=== PATIENT | female | born 1940 | race Two or more races ===

== ENCOUNTER 2021-05-30 10:39 | Inpatient (IN) | payer MEDICAID, OTHER ==
[~2021-05-30] VITALS: Ht 165.1 cm; Wt 80.0 kg
[2021-05-30] MEDS ORDERED: ACETAMINOPHEN 500 MG TAB PO ONE (12:45)
[2021-05-30 13:31] LABS: Albumin 3.2 g/dL (3.4-5.0); Calcium 8.9 mg/dL (8.5-10.1); Potassium 4.1 mmol/L (3.5-5.1)
[2021-05-30 13:37] LABS: BUN/Creatinine Ratio 22.8; Basophils # (auto) 0 10 ^3/uL (0-0.2); Bilirubin, Total 0.4 mg/dL (0.2-1.0); Eosinophils # (auto) 0 10 ^3/uL (0-0.8); Neutrophils % (auto) 80.8 % (37.0-80.0); Nucleated Red Blood Cells % 0.1 %; Total Protein 7.4 g/dL (6.4-8.2)
[2021-05-30 13:39] LABS: Hematocrit 40.3 % (36.0-46.0); Hemoglobin 13.1 g/dL (12.2-16.2); Lymphocytes # (auto) 1.3 10 ^3/uL (0.4-5.4); Lymphocytes % (auto) 8.7 % (10.0-50.0); Mean Corpuscular Hemoglobin 25.6 pg (28.0-32.0); Mean Corpuscular Hgb Conc. 32.5 g/dL (32.0-36.0); Mean Corpuscular Volume 78.9 fL (80.0-100.0); Monocytes # (auto) 1.6 10 ^3/uL (0-1.3); Monocytes % (auto) 10.5 % (0.0-12.0); Neutrophils # (auto) 12.1 10 ^3/uL (1.6-8.6); Red Blood Cells 5.11 10^6/uL (4.0-5.20); Red Cell Distribution Width 15.1 % (11.8-14.3)
[2021-05-30] MEDS ORDERED: SODIUM CHLORIDE 0.9% 500 ML IV ONE (14:45)
[2021-05-30] MEDS ORDERED: cefTRIAXone 1GM/50ML D5W 50 ML IV ONE (14:45)
[2021-05-30] MEDS ORDERED: AZITHROMYCIN 250 MG TAB PO ONE (14:45)
[2021-05-30 15:26] LABS: Urine Bacteria NONE SEEN /hpf (None Seen); Urine Blood Negative /uL (Negative); Urine Mucus FEW (None Seen); Urine WBC <1 /hpf (0 - 5)
[2021-05-30] MEDS ORDERED: ACETAMINOPHEN 500 MG TAB PO PRN (16:00)
[2021-05-30] MEDS ORDERED: MORPHINE SULFATE INJECTION 2 MG/ML SYRG IV PRN (16:00)
[2021-05-30] MEDS ORDERED: REMDESIVIR PER PHARMACY 0 ML IV SCH (16:00)
[2021-05-30] MEDS ORDERED: NITROGLYCERIN 0.4 MG SL TAB SL PRN (16:00)
[2021-05-30] MEDS ORDERED: REMDESIVIR 200 MG in NS 210ml LOADING DOSE ADULT IV ONE (18:00)
[2021-05-30] MEDS: BUDESONIDE (INHALATION) 180 MCG IH IN SCH (18:27)
[2021-05-30] MEDS: ALBUTEROL SULF HFA 90MCG INH 200DOSE IN PRN (21:05)
[2021-05-30] MEDS: DOXYCYCLINE 100MG/250ML 250 ML IV SCH (22:00)
[2021-05-31] MEDS: BUDESONIDE (INHALATION) 180 MCG IH IN SCH ×2 (05:53→20:16)
[2021-05-31] MEDS: ALBUTEROL SULF HFA 90MCG INH 200DOSE IN PRN ×2 (05:53→20:16)
[2021-05-31 07:19] LABS: Calcium 8.8 mg/dL (8.5-10.1); Potassium 3.9 mmol/L (3.5-5.1)
[2021-05-31 07:22] LABS: Albumin 2.8 g/dL (3.4-5.0); BUN/Creatinine Ratio 20.8
[2021-05-31 07:28] LABS: Bilirubin, Total 0.3 mg/dL (0.2-1.0); Total Protein 6.4 g/dL (6.4-8.2)
[2021-05-31] MEDS: DOXYCYCLINE 100MG/250ML 250 ML IV SCH ×2 (10:19→22:32)
[2021-05-31] MEDS: DexAMETHasone SOD PHOS 10MG/1ML VIAL INJ IV SCH (10:19)
[2021-05-31] MEDS: CHOLECALCIFEROL (VITD3) 2,000 UNIT CAP/TAB PO SCH (10:20)
[2021-05-31] MEDS: ZINC SULFATE 220mg CAP or TAB PO SCH (10:20)
[2021-05-31] MEDS: ASCORBIC ACID 1,000 MG TAB PO SCH (10:20)
[2021-05-31] MEDS: IVERMECTIN 3 MG TAB PO SCH (10:20)
[2021-05-31] MEDS: ENOXAPARIN SOD 40 MG/0.4 ML SYRINGE SC SCH (10:20)
[2021-05-31] MEDS ORDERED: LOSA-39 PO (12:23)
[2021-05-31] MEDS ORDERED: ATOR10TA52 PO (12:23)
[2021-05-31] MEDS ORDERED: METF-370 PO (12:23)
[2021-05-31] MEDS ORDERED: DEXTROSE (50%) 50ML SYRG IV PRN (12:30)
[2021-05-31] MEDS ORDERED: IOHEXOL 350 MG/ML 100ML IJ ONE ×2 (13:46→15:12)
[2021-05-31 16:00] VITALS: BP 134/56
[2021-05-31] MEDS: metFORMIN HYDROCHLORIDE 500 MG TAB PO SCH (16:59)
[2021-05-31] MEDS: ACCU-CHEK COMFORT CURVE STRIP VI SCH ×2 (16:59→22:00)
[2021-05-31] MEDS: REMDESIVIR 100mg 100 MG in SODIUM CHL 0.9% 230 ML IV SCH (17:00)
[2021-05-31] MEDS: InsuLIN REG 1unit/0.01ml Soln (100units/ml) SC SCH ×2 (17:09→22:41)
[2021-05-31 18:14] VITALS: BP 140/71
[2021-05-31 21:46] VITALS: BP 112/47
[2021-05-31] MEDS: ATORVASTATIN 20 MG TAB PO SCH (22:32)
[2021-06-01 04:34] VITALS: BP 115/67
[2021-06-01] MEDS: ACCU-CHEK COMFORT CURVE STRIP VI SCH ×4 (06:31→22:02)
[2021-06-01] MEDS: InsuLIN REG 1unit/0.01ml Soln (100units/ml) SC SCH ×4 (06:31→22:15)
[2021-06-01] MEDS: metFORMIN HYDROCHLORIDE 500 MG TAB PO SCH ×2 (08:45→18:41)
[2021-06-01 08:54] LABS: Potassium 4.3 mmol/L (3.5-5.1)
[2021-06-01 09:00] VITALS: BP 120/46
[2021-06-01 09:28] LABS: Albumin 2.5 g/dL (3.4-5.0); BUN/Creatinine Ratio 43.2; Bilirubin, Total 0.3 mg/dL (0.2-1.0); Calcium 9.1 mg/dL (8.5-10.1); Total Protein 6.2 g/dL (6.4-8.2)
[2021-06-01] MEDS: DexAMETHasone SOD PHOS 10MG/1ML VIAL INJ IV SCH (09:33)
[2021-06-01] MEDS: CHOLECALCIFEROL (VITD3) 2,000 UNIT CAP/TAB PO SCH (09:34)
[2021-06-01] MEDS: DOXYCYCLINE 100MG/250ML 250 ML IV SCH ×2 (09:34→22:02)
[2021-06-01] MEDS: ASCORBIC ACID 1,000 MG TAB PO SCH (09:34)
[2021-06-01] MEDS: IVERMECTIN 3 MG TAB PO SCH (09:34)
[2021-06-01] MEDS: ENOXAPARIN SOD 40 MG/0.4 ML SYRINGE SC SCH ×2 (09:34→22:02)
[2021-06-01] MEDS: ZINC SULFATE 220mg CAP or TAB PO SCH (09:34)
[2021-06-01] MEDS: LOSARTAN POTASSIUM 50 MG TAB PO SCH (09:35)
[2021-06-01] MEDS: BUDESONIDE (INHALATION) 180 MCG IH IN SCH ×2 (09:44→20:25)
[2021-06-01] MEDS: ALBUTEROL SULF HFA 90MCG INH 200DOSE IN PRN ×2 (09:44→20:25)
[2021-06-01 13:00] VITALS: BP 142/64
[2021-06-01] MEDS: REMDESIVIR 100mg 100 MG in SODIUM CHL 0.9% 230 ML IV SCH (15:15)
[2021-06-01 17:00] VITALS: BP 156/77
[2021-06-01 21:48] VITALS: BP 158/77
[2021-06-01] MEDS: ATORVASTATIN 20 MG TAB PO SCH (22:02)
[2021-06-02 04:34] VITALS: BP 122/70
[2021-06-02 06:10] LABS: Albumin 2.4 g/dL (3.4-5.0); Calcium 8.4 mg/dL (8.5-10.1)
[2021-06-02 06:13] LABS: Bilirubin, Total 0.3 mg/dL (0.2-1.0); Total Protein 5.2 g/dL (6.4-8.2)
[2021-06-02] MEDS: ACCU-CHEK COMFORT CURVE STRIP VI SCH ×4 (06:16→21:20)
[2021-06-02] MEDS: InsuLIN REG 1unit/0.01ml Soln (100units/ml) SC SCH ×4 (06:17→21:28)
[2021-06-02] MEDS: ALBUTEROL SULF HFA 90MCG INH 200DOSE IN PRN ×2 (07:00→20:11)
[2021-06-02] MEDS: BUDESONIDE (INHALATION) 180 MCG IH IN SCH ×2 (07:00→20:12)
[2021-06-02] MEDS: DexAMETHasone SOD PHOS 10MG/1ML VIAL INJ IV SCH (08:52)
[2021-06-02] MEDS: metFORMIN HYDROCHLORIDE 500 MG TAB PO SCH ×2 (08:52→19:14)
[2021-06-02] MEDS: DOXYCYCLINE 100MG/250ML 250 ML IV SCH ×2 (08:52→21:28)
[2021-06-02] MEDS: ZINC SULFATE 220mg CAP or TAB PO SCH (08:53)
[2021-06-02] MEDS: LOSARTAN POTASSIUM 50 MG TAB PO SCH (08:54)
[2021-06-02] MEDS: IVERMECTIN 3 MG TAB PO SCH (08:54)
[2021-06-02] MEDS: ASCORBIC ACID 1,000 MG TAB PO SCH (08:54)
[2021-06-02] MEDS: CHOLECALCIFEROL (VITD3) 2,000 UNIT CAP/TAB PO SCH (08:55)
[2021-06-02] MEDS: ENOXAPARIN SOD 40 MG/0.4 ML SYRINGE SC SCH ×2 (08:55→21:28)
[2021-06-02 09:00] VITALS: BP 120/58
[2021-06-02 13:00] VITALS: BP 143/74
[2021-06-02] MEDS: REMDESIVIR 100mg 100 MG in SODIUM CHL 0.9% 230 ML IV SCH (16:21)
[2021-06-02 16:51] VITALS: BP 140/83
[2021-06-02] MEDS: ATORVASTATIN 20 MG TAB PO SCH (21:28)
[2021-06-02 22:00] VITALS: BP 137/69
[2021-06-03 05:00] VITALS: BP 145/74
[2021-06-03 05:45] LABS: Basophils # (auto) 0 10 ^3/uL (0-0.2); Basophils % (auto) 0.1 % (0.0-2.0); Eosinophils # (auto) 0 10 ^3/uL (0-0.8); Monocytes # (auto) 0.4 10 ^3/uL (0-1.3)
[2021-06-03 06:01] LABS: Albumin 2.7 g/dL (3.4-5.0); Calcium 8.7 mg/dL (8.5-10.1); Potassium 3.8 mmol/L (3.5-5.1)
[2021-06-03 06:06] LABS: BUN/Creatinine Ratio 41.7; Bilirubin, Total 0.5 mg/dL (0.2-1.0)
[2021-06-03] MEDS: ACCU-CHEK COMFORT CURVE STRIP VI SCH ×4 (06:13→22:29)
[2021-06-03] MEDS: InsuLIN REG 1unit/0.01ml Soln (100units/ml) SC SCH ×4 (06:23→22:55)
[2021-06-03 06:30] LABS: Hematocrit 39.8 % (36.0-46.0); Hemoglobin 12.6 g/dL (12.2-16.2); Lymphocytes # (auto) 0.9 10 ^3/uL (0.4-5.4); Mean Corpuscular Hemoglobin 25.2 pg (28.0-32.0); Mean Corpuscular Hgb Conc. 31.6 g/dL (32.0-36.0); Mean Corpuscular Volume 79.9 fL (80.0-100.0); Monocytes % (auto) 7.5 % (0.0-12.0); Neutrophils % (auto) 75.4 % (37.0-80.0); Nucleated Red Blood Cells % 0.1 %; Red Blood Cells 4.98 10^6/uL (4.0-5.20); Red Cell Distribution Width 14.8 % (11.8-14.3); White Blood Cell 5.3 10^3/uL (4.4-10.8)
[2021-06-03] MEDS: BUDESONIDE (INHALATION) 180 MCG IH IN SCH ×2 (08:11→17:42)
[2021-06-03] MEDS: ALBUTEROL SULF HFA 90MCG INH 200DOSE IN PRN ×2 (08:11→17:43)
[2021-06-03 08:32] VITALS: BP 141/76
[2021-06-03] MEDS: metFORMIN HYDROCHLORIDE 500 MG TAB PO SCH ×2 (10:23→17:41)
[2021-06-03] MEDS: DOXYCYCLINE 100MG/250ML 250 ML IV SCH ×2 (10:23→22:28)
[2021-06-03] MEDS: ZINC SULFATE 220mg CAP or TAB PO SCH (10:23)
[2021-06-03] MEDS: LOSARTAN POTASSIUM 50 MG TAB PO SCH (10:23)
[2021-06-03] MEDS: DexAMETHasone SOD PHOS 10MG/1ML VIAL INJ IV SCH (10:23)
[2021-06-03] MEDS: ASCORBIC ACID 1,000 MG TAB PO SCH (10:25)
[2021-06-03] MEDS: IVERMECTIN 3 MG TAB PO SCH (10:25)
[2021-06-03] MEDS: CHOLECALCIFEROL (VITD3) 2,000 UNIT CAP/TAB PO SCH (10:26)
[2021-06-03] MEDS: ENOXAPARIN SOD 40 MG/0.4 ML SYRINGE SC SCH ×2 (10:26→22:29)
[2021-06-03 13:02] VITALS: BP 128/51
[2021-06-03] MEDS: REMDESIVIR 100mg 100 MG in SODIUM CHL 0.9% 230 ML IV SCH (15:31)
[2021-06-03 16:30] VITALS: BP 144/70
[2021-06-03 22:00] VITALS: BP 145/83
[2021-06-03] MEDS: ATORVASTATIN 20 MG TAB PO SCH (22:28)
[2021-06-04 05:30] VITALS: BP 148/74
[2021-06-04] MEDS: BUDESONIDE (INHALATION) 180 MCG IH IN SCH ×2 (06:05→20:13)
[2021-06-04] MEDS: ALBUTEROL SULF HFA 90MCG INH 200DOSE IN PRN ×2 (06:05→20:13)
[2021-06-04] MEDS: InsuLIN REG 1unit/0.01ml Soln (100units/ml) SC SCH ×4 (06:51→22:00)
[2021-06-04] MEDS: ACCU-CHEK COMFORT CURVE STRIP VI SCH ×4 (06:51→22:23)
[2021-06-04 09:00] VITALS: BP 161/78
[2021-06-04] MEDS: metFORMIN HYDROCHLORIDE 500 MG TAB PO SCH ×2 (09:48→18:02)
[2021-06-04] MEDS: DOXYCYCLINE 100MG/250ML 250 ML IV SCH (09:48)
[2021-06-04] MEDS: DexAMETHasone SOD PHOS 10MG/1ML VIAL INJ IV SCH (09:48)
[2021-06-04] MEDS: ZINC SULFATE 220mg CAP or TAB PO SCH (09:49)
[2021-06-04] MEDS: LOSARTAN POTASSIUM 50 MG TAB PO SCH (09:49)
[2021-06-04] MEDS: IVERMECTIN 3 MG TAB PO SCH (09:49)
[2021-06-04] MEDS: ASCORBIC ACID 1,000 MG TAB PO SCH (09:49)
[2021-06-04] MEDS: CHOLECALCIFEROL (VITD3) 2,000 UNIT CAP/TAB PO SCH (09:50)
[2021-06-04] MEDS: ENOXAPARIN SOD 40 MG/0.4 ML SYRINGE SC SCH ×2 (09:50→22:23)
[2021-06-04] MEDS ORDERED: ALBUAER3 IN (10:38)
[2021-06-04] MEDS ORDERED: MAGNESIUM CITRATE SOLUTION 300 ML BTL PO ONE (11:15)
[2021-06-04 13:00] VITALS: BP 150/76
[2021-06-04 17:00] VITALS: BP 155/83
[2021-06-04] MEDS: ATORVASTATIN 20 MG TAB PO SCH (22:23)
[2021-06-04 23:23] VITALS: BP 127/68
== END 2021-06-04 23:59 | disposition home health service (06) | DRG 720 ==
LOC: ER 10:39 → TELE 15:53 → EAST 05-31 15:39
PROVIDERS: ADMIT Nurse Practitioner; ATTEND Nurse Practitioner
PROC: XW033E5 Introduction of Remdesivir Anti-infective into Peripheral Vein, Percutaneous Approach, New Technology Group 5 (ICD-10-PCS; principal; 2021-05-30)
DX: A41.9 Sepsis, unspecified organism (principal); J96.01 Acute respiratory failure with hypoxia; J12.82 Pneumonia due to coronavirus disease 2019; U07.1 COVID-19; I11.9 Hypertensive heart disease without heart failure; E11.9 Type 2 diabetes mellitus without complications; E66.9 Obesity, unspecified; J98.11 Atelectasis; E78.5 Hyperlipidemia, unspecified; R00.0 Tachycardia, unspecified; R79.89 Other specified abnormal findings of blood chemistry; Z68.29 Body mass index [BMI] 29.0-29.9, adult
CPT/HCPCS: 36415; 71045; 71275; 80053; 80061; 81001; 82306; 82728; 82962; 83036; 83615; 83735; 83880; 84443; 84484; 85025; 85379; 86141; 87040; 87426; 93005; 93306; 93970; 94640; 96365; G0378; J0696; J1100; J1815; J3490

== ENCOUNTER 2021-07-13 23:46 | Emergency (ER) | payer MEDICAID ==
[~2021-07-13] VITALS: Ht 160 cm; Wt 80.3 kg
[~2021-07-13 23:46] MED LIST: ALBUAER3 IN; ATOR10TA52 PO; LOSA-39 PO; METF-370 PO
[2021-07-14 00:57] LABS: Urine Bacteria FEW /hpf (None Seen); Urine Blood Negative /uL (Negative); Urine Specific Gravity 1.002 (1.001-1.035); Urine WBC 6 /hpf (0 - 5)
[2021-07-14 01:14] LABS: Basophils # (auto) 0 10 ^3/uL (0-0.2); Basophils % (auto) 0.1 % (0.0-2.0); Eosinophils # (auto) 0 10 ^3/uL (0-0.8); Hemoglobin 12.5 g/dL (12.2-16.2); Lymphocytes # (auto) 2.3 10 ^3/uL (0.4-5.4); Lymphocytes % (auto) 38.5 % (10.0-50.0); Mean Corpuscular Hemoglobin 25.8 pg (28.0-32.0); Mean Corpuscular Volume 78.2 fL (80.0-100.0); Monocytes # (auto) 0.9 10 ^3/uL (0-1.3); Monocytes % (auto) 14.5 % (0.0-12.0); Neutrophils # (auto) 2.9 10 ^3/uL (1.6-8.6); Neutrophils % (auto) 46.9 % (37.0-80.0); Nucleated Red Blood Cells % 0.1 %; Red Blood Cells 4.85 10^6/uL (4.0-5.20); Red Cell Distribution Width 14.8 % (11.8-14.3); White Blood Cell 6.1 10^3/uL (4.4-10.8)
[2021-07-14 01:33] LABS: Albumin 3.5 g/dL (3.4-5.0); Calcium 9.1 mg/dL (8.5-10.1); Potassium 3.7 mmol/L (3.5-5.1)
[2021-07-14 01:35] LABS: BUN/Creatinine Ratio 30.8
[2021-07-14 01:40] LABS: Bilirubin, Total 0.4 mg/dL (0.2-1.0); Total Protein 6.6 g/dL (6.4-8.2)
[2021-07-14 05:19] VITALS: BP 130/59
== END 2021-07-14 06:02 | disposition home or self-care (01) ==
LOC: ER 23:48
DX: I10 Essential (primary) hypertension (principal); E11.9 Type 2 diabetes mellitus without complications; Z79.899 Other long term (current) drug therapy
CPT/HCPCS: 36415; 71045; 71046; 80053; 81001; 83735; 84484; 85025; 93005

== ENCOUNTER 2021-11-30 23:38 | Inpatient (IN) | payer MEDICAID ==
[~2021-11-30] VITALS: Ht 157.5 cm; Wt 76.0 kg
[2021-12-01] MEDS ORDERED: DexAMETHasone SOD PHOS 10MG/1ML VIAL INJ IV ONE (01:30)
[2021-12-01 04:35] LABS: Basophils # (auto) 0 10 ^3/uL (0-0.2); Basophils % (auto) 0.3 % (0.0-2.0); Eosinophils # (auto) 0 10 ^3/uL (0-0.8); Hemoglobin 13.2 g/dL (12.2-16.2); Lymphocytes # (auto) 2.1 10 ^3/uL (0.4-5.4); Nucleated Red Blood Cells % 0.1 %; White Blood Cell 6.5 10^3/uL (4.4-10.8)
[2021-12-01 04:37] LABS: Hematocrit 41.6 % (36.0-46.0); Lymphocytes % (auto) 31.9 % (10.0-50.0); Mean Corpuscular Hemoglobin 24.7 pg (28.0-32.0); Mean Corpuscular Hgb Conc. 31.7 g/dL (32.0-36.0); Monocytes # (auto) 0.7 10 ^3/uL (0-1.3); Neutrophils # (auto) 3.7 10 ^3/uL (1.6-8.6); Neutrophils % (auto) 56.8 % (37.0-80.0); Red Blood Cells 5.34 10^6/uL (4.0-5.20); Red Cell Distribution Width 14.1 % (11.8-14.3)
[2021-12-01 05:01] LABS: Albumin 3.5 g/dL (3.4-5.0); BUN/Creatinine Ratio 26.5; Calcium 8.9 mg/dL (8.5-10.1); Magnesium 2.1 mg/dL (1.6-2.6)
[2021-12-01 05:04] LABS: Bilirubin, Total 0.3 mg/dL (0.2-1.0); Total Protein 6.6 g/dL (6.4-8.2)
[2021-12-01] MEDS ORDERED: ACETAMINOPHEN 500 MG TAB PO PRN ×2 (05:15→06:00)
[2021-12-01] MEDS ORDERED: NITROGLYCERIN 0.4 MG SL TAB SL PRN ×2 (05:15→06:00)
[2021-12-01] MEDS ORDERED: ONDANSETRON HCL 4 MG/2 ML VIAL IV PRN ×2 (05:15→06:00)
[2021-12-01] MEDS ORDERED: MORPHINE SULFATE INJ 2 MG/ml SYRG IV PRN ×2 (05:15→06:00)
[2021-12-01] MEDS ORDERED: DEXTROSE (50%) 50ML SYRG IV PRN ×2 (05:15→06:00)
[2021-12-01 05:24] LABS: Urine Bacteria FEW /hpf (None Seen); Urine Blood Negative /uL (Negative); Urine Specific Gravity 1.005 (1.001-1.035); Urine WBC 2 /hpf (0 - 5)
[2021-12-01] MEDS ORDERED: AZITHROMYCIN 500MG/ 250ML 250 ML IV SCH (06:00)
[2021-12-01] MEDS: ACCU-CHEK COMFORT CURVE STRIP VI SCH ×4 (06:52→22:12)
[2021-12-01] MEDS: InsuLIN REG 1unit/0.01ml Soln (100units/ml) SC SCH ×4 (06:53→22:00)
[2021-12-01] MEDS ORDERED: InsuLIN REG 1unit/0.01ml Soln (100units/ml) SC SCH ×2 (07:00→22:00)
[2021-12-01] MEDS ORDERED: ACCU-CHEK COMFORT CURVE STRIP VI SCH (07:00)
[2021-12-01 09:00] VITALS: BP 148/70
[2021-12-01] MEDS ORDERED: REMDESIVIR PER PHARMACY 0 ML IV SCH (09:45)
[2021-12-01] MEDS ORDERED: LOSARTAN POTASSIUM 50 MG TAB PO SCH (10:00)
[2021-12-01] MEDS: BUDESONIDE (INHALATION) 180 MCG IH IN SCH ×2 (11:00→22:01)
[2021-12-01] MEDS: ALBUTEROL SULF HFA 90MCG INH 200DOSE IN PRN ×2 (11:51→22:01)
[2021-12-01] MEDS: ZINC SULFATE 220mg CAP or TAB PO SCH (12:54)
[2021-12-01] MEDS: ASCORBIC ACID 1,000 MG TAB PO SCH (12:55)
[2021-12-01] MEDS: CHOLECALCIFEROL (VITD3) 2,000 UNIT CAP/TAB PO SCH (12:55)
[2021-12-01] MEDS: AZITHROMYCIN 500MG/ 250ML 250 ML IV SCH (12:55)
[2021-12-01] MEDS ORDERED: REMDESIVIR 200 MG in NS 210ml LOADING DOSE ADULT IV ONE (15:00)
[2021-12-01] MEDS ORDERED: LACTULOSE 20Gm/30ML SOLN PO ONE (16:30)
[2021-12-01 16:42] VITALS: BP 152/71
[2021-12-01] MEDS ORDERED: DOCUSATE SOD 100 MG CAP PO SCH (16:46)
[2021-12-01] MEDS ORDERED: guaiFENesin-DM 100/10mg/5ml SYR PO PRN (18:15)
[2021-12-01 20:00] VITALS: BP 159/83
[2021-12-01 22:00] VITALS: BP 159/83
[2021-12-01] MEDS: ATORVASTATIN 20 MG TAB PO SCH (22:12)
[2021-12-02 05:00] VITALS: BP 130/62
[2021-12-02] MEDS: ACCU-CHEK COMFORT CURVE STRIP VI SCH ×4 (06:21→22:00)
[2021-12-02] MEDS: InsuLIN REG 1unit/0.01ml Soln (100units/ml) SC SCH ×4 (06:22→22:00)
[2021-12-02 06:32] LABS: Basophils # (auto) 0 10 ^3/uL (0-0.2); Basophils % (auto) 0.3 % (0.0-2.0); Eosinophils # (auto) 0 10 ^3/uL (0-0.8); Lymphocytes # (auto) 2.6 10 ^3/uL (0.4-5.4); Monocytes % (auto) 12.2 % (0.0-12.0); Neutrophils # (auto) 4.3 10 ^3/uL (1.6-8.6); White Blood Cell 7.9 10^3/uL (4.4-10.8)
[2021-12-02 06:36] LABS: Hematocrit 41.9 % (36.0-46.0); Hemoglobin 13.2 g/dL (12.2-16.2); Lymphocytes % (auto) 33.3 % (10.0-50.0); Mean Corpuscular Hemoglobin 24.7 pg (28.0-32.0); Mean Corpuscular Hgb Conc. 31.6 g/dL (32.0-36.0); Mean Corpuscular Volume 78.4 fL (80.0-100.0); Neutrophils % (auto) 54.2 % (37.0-80.0); Red Blood Cells 5.34 10^6/uL (4.0-5.20); Red Cell Distribution Width 14.2 % (11.8-14.3)
[2021-12-02 06:55] LABS: Albumin 3.2 g/dL (3.4-5.0); Calcium 8.8 mg/dL (8.5-10.1); Potassium 4.1 mmol/L (3.5-5.1)
[2021-12-02 07:01] LABS: Bilirubin, Total 0.3 mg/dL (0.2-1.0); Total Protein 5.9 g/dL (6.4-8.2)
[2021-12-02 09:00] VITALS: BP 144/69
[2021-12-02] MEDS: DexAMETHasone SOD PHOS 4 MG/1ML SDV INJ IV SCH (09:42)
[2021-12-02] MEDS: ZINC SULFATE 220mg CAP or TAB PO SCH (09:42)
[2021-12-02] MEDS: DOCUSATE SOD 100 MG CAP PO SCH ×2 (09:44→22:53)
[2021-12-02] MEDS: AZITHROMYCIN 500MG/ 250ML 250 ML IV SCH (09:44)
[2021-12-02] MEDS: ASCORBIC ACID 1,000 MG TAB PO SCH (09:44)
[2021-12-02] MEDS: CHOLECALCIFEROL (VITD3) 2,000 UNIT CAP/TAB PO SCH (09:44)
[2021-12-02] MEDS ORDERED: DexAMETHasone SOD PHOS 4 MG/1ML SDV INJ IV SCH (10:00)
[2021-12-02] MEDS: BUDESONIDE (INHALATION) 180 MCG IH IN SCH ×2 (10:23→18:36)
[2021-12-02] MEDS: ALBUTEROL SULF HFA 90MCG INH 200DOSE IN PRN ×2 (10:57→18:36)
[2021-12-02 13:00] VITALS: BP 115/57
[2021-12-02] MEDS: REMDESIVIR 100mg 100 MG in SODIUM CHL 0.9% 230 ML IV SCH (15:53)
[2021-12-02 17:00] VITALS: BP 142/60
[2021-12-02 20:00] VITALS: BP 146/83
[2021-12-02 22:00] VITALS: BP 146/83
[2021-12-02] MEDS: ATORVASTATIN 20 MG TAB PO SCH (22:53)
[2021-12-03 05:00] VITALS: BP 128/78
[2021-12-03 06:22] LABS: Basophils # (auto) 0 10 ^3/uL (0-0.2); Eosinophils # (auto) 0 10 ^3/uL (0-0.8); Monocytes # (auto) 0.8 10 ^3/uL (0-1.3); Red Blood Cells 4.95 10^6/uL (4.0-5.20)
[2021-12-03 06:24] LABS: Basophils % (auto) 0.1 % (0.0-2.0); Hematocrit 38.4 % (36.0-46.0); Hemoglobin 12.4 g/dL (12.2-16.2); Lymphocytes # (auto) 2.2 10 ^3/uL (0.4-5.4); Lymphocytes % (auto) 27.5 % (10.0-50.0); Mean Corpuscular Hemoglobin 25.1 pg (28.0-32.0); Mean Corpuscular Hgb Conc. 32.4 g/dL (32.0-36.0); Mean Corpuscular Volume 77.5 fL (80.0-100.0); Monocytes % (auto) 9.5 % (0.0-12.0); Neutrophils % (auto) 62.9 % (37.0-80.0); Nucleated Red Blood Cells % 0.1 %; Red Cell Distribution Width 14.1 % (11.8-14.3); White Blood Cell 7.9 10^3/uL (4.4-10.8)
[2021-12-03 07:00] LABS: Albumin 3.1 g/dL (3.4-5.0); BUN/Creatinine Ratio 51.5; Bilirubin, Total 0.4 mg/dL (0.2-1.0); Calcium 8.8 mg/dL (8.5-10.1); Total Protein 5.7 g/dL (6.4-8.2)
[2021-12-03] MEDS: InsuLIN REG 1unit/0.01ml Soln (100units/ml) SC SCH ×4 (07:00→22:17)
[2021-12-03] MEDS: ACCU-CHEK COMFORT CURVE STRIP VI SCH ×4 (07:04→22:05)
[2021-12-03] MEDS: LACTULOSE 20Gm/30ML SOLN PO PRN (07:05)
[2021-12-03 08:13] VITALS: BP 147/66
[2021-12-03] MEDS: AZITHROMYCIN 500MG/ 250ML 250 ML IV SCH (09:33)
[2021-12-03] MEDS: DexAMETHasone SOD PHOS 4 MG/1ML SDV INJ IV SCH (09:33)
[2021-12-03] MEDS: ZINC SULFATE 220mg CAP or TAB PO SCH (09:34)
[2021-12-03] MEDS: ASCORBIC ACID 1,000 MG TAB PO SCH (09:34)
[2021-12-03] MEDS: CHOLECALCIFEROL (VITD3) 2,000 UNIT CAP/TAB PO SCH (09:34)
[2021-12-03] MEDS: DOCUSATE SOD 100 MG CAP PO SCH ×3 (09:37→22:05)
[2021-12-03] MEDS: BUDESONIDE (INHALATION) 180 MCG IH IN SCH ×2 (09:49→18:53)
[2021-12-03 12:00] VITALS: BP 134/67
[2021-12-03] MEDS: REMDESIVIR 100mg 100 MG in SODIUM CHL 0.9% 230 ML IV SCH (15:53)
[2021-12-03 17:00] VITALS: BP 136/64
[2021-12-03] MEDS: ALBUTEROL SULF HFA 90MCG INH 200DOSE IN PRN (18:54)
[2021-12-03 20:00] VITALS: BP 143/65
[2021-12-03 22:00] VITALS: BP 143/65
[2021-12-03] MEDS: ATORVASTATIN 20 MG TAB PO SCH (22:05)
[2021-12-04 05:00] VITALS: BP 129/54
[2021-12-04 06:34] LABS: Basophils # (auto) 0 10 ^3/uL (0-0.2); Basophils % (auto) 0.1 % (0.0-2.0); Eosinophils # (auto) 0 10 ^3/uL (0-0.8); Nucleated Red Blood Cells % 0.1 %
[2021-12-04 06:35] LABS: Hemoglobin 13.1 g/dL (12.2-16.2); Lymphocytes # (auto) 2.6 10 ^3/uL (0.4-5.4); Lymphocytes % (auto) 36.9 % (10.0-50.0); Mean Corpuscular Hemoglobin 25.4 pg (28.0-32.0); Mean Corpuscular Hgb Conc. 32.7 g/dL (32.0-36.0); Mean Corpuscular Volume 77.6 fL (80.0-100.0); Monocytes % (auto) 13.8 % (0.0-12.0); Neutrophils # (auto) 3.5 10 ^3/uL (1.6-8.6); Neutrophils % (auto) 49.2 % (37.0-80.0); Red Blood Cells 5.15 10^6/uL (4.0-5.20); Red Cell Distribution Width 13.9 % (11.8-14.3); White Blood Cell 7.2 10^3/uL (4.4-10.8)
[2021-12-04 06:43] LABS: Albumin 3.1 g/dL (3.4-5.0); Calcium 8.8 mg/dL (8.5-10.1); Potassium 4.1 mmol/L (3.5-5.1)
[2021-12-04 06:46] LABS: BUN/Creatinine Ratio 47.2; Bilirubin, Total 0.4 mg/dL (0.2-1.0)
[2021-12-04] MEDS: ACCU-CHEK COMFORT CURVE STRIP VI SCH ×4 (06:59→22:00)
[2021-12-04] MEDS: InsuLIN REG 1unit/0.01ml Soln (100units/ml) SC SCH ×4 (06:59→22:31)
[2021-12-04 07:54] VITALS: BP 129/54
[2021-12-04 08:33] VITALS: BP 148/69
[2021-12-04] MEDS: BUDESONIDE (INHALATION) 180 MCG IH IN SCH ×2 (09:17→21:59)
[2021-12-04] MEDS: LACTULOSE 20Gm/30ML SOLN PO PRN (09:37)
[2021-12-04] MEDS: ASCORBIC ACID 1,000 MG TAB PO SCH (09:37)
[2021-12-04] MEDS: CHOLECALCIFEROL (VITD3) 2,000 UNIT CAP/TAB PO SCH (09:38)
[2021-12-04] MEDS: DOCUSATE SOD 100 MG CAP PO SCH ×3 (09:38→21:42)
[2021-12-04] MEDS: DexAMETHasone SOD PHOS 4 MG/1ML SDV INJ IV SCH (09:38)
[2021-12-04] MEDS: AZITHROMYCIN 500MG/ 250ML 250 ML IV SCH (09:38)
[2021-12-04] MEDS: ZINC SULFATE 220mg CAP or TAB PO SCH (09:38)
[2021-12-04 12:37] VITALS: BP 121/66
[2021-12-04] MEDS: REMDESIVIR 100mg 100 MG in SODIUM CHL 0.9% 230 ML IV SCH (15:05)
[2021-12-04 16:49] VITALS: BP 126/61
[2021-12-04 21:31] VITALS: BP 107/60
[2021-12-04] MEDS: ATORVASTATIN 20 MG TAB PO SCH (21:42)
[2021-12-04] MEDS: ALBUTEROL SULF HFA 90MCG INH 200DOSE IN PRN (21:58)
[2021-12-05 04:59] VITALS: BP 128/55
[2021-12-05] MEDS: ACCU-CHEK COMFORT CURVE STRIP VI SCH ×2 (05:45→11:30)
[2021-12-05] MEDS: InsuLIN REG 1unit/0.01ml Soln (100units/ml) SC SCH ×2 (05:45→12:15)
[2021-12-05 06:18] LABS: Basophils # (auto) 0 10 ^3/uL (0-0.2); Eosinophils # (auto) 0 10 ^3/uL (0-0.8); Hemoglobin 14.2 g/dL (12.2-16.2); Lymphocytes # (auto) 2.7 10 ^3/uL (0.4-5.4)
[2021-12-05 06:19] LABS: Hematocrit 43.5 % (36.0-46.0); Lymphocytes % (auto) 34.4 % (10.0-50.0); Mean Corpuscular Hemoglobin 25.5 pg (28.0-32.0); Mean Corpuscular Hgb Conc. 32.7 g/dL (32.0-36.0); Mean Corpuscular Volume 78.1 fL (80.0-100.0); Monocytes % (auto) 12.7 % (0.0-12.0); Neutrophils # (auto) 4.1 10 ^3/uL (1.6-8.6); Neutrophils % (auto) 52.9 % (37.0-80.0); Red Blood Cells 5.57 10^6/uL (4.0-5.20); Red Cell Distribution Width 14.3 % (11.8-14.3); White Blood Cell 7.8 10^3/uL (4.4-10.8)
[2021-12-05 06:24] LABS: Calcium 9.2 mg/dL (8.5-10.1); Potassium 4.2 mmol/L (3.5-5.1)
[2021-12-05 06:29] LABS: Albumin 3.3 g/dL (3.4-5.0); BUN/Creatinine Ratio 51.7; Bilirubin, Total 0.5 mg/dL (0.2-1.0); Total Protein 6.4 g/dL (6.4-8.2)
[2021-12-05 09:31] VITALS: BP 115/53
[2021-12-05] MEDS ORDERED: PRED20TA2 PO (09:34)
[2021-12-05] MEDS ORDERED: AZIT500T66 PO (09:34)
[2021-12-05] MEDS: BUDESONIDE (INHALATION) 180 MCG IH IN SCH (10:00)
[2021-12-05] MEDS: DOCUSATE SOD 100 MG CAP PO SCH ×2 (10:00→10:16)
[2021-12-05] MEDS: AZITHROMYCIN 500MG/ 250ML 250 ML IV SCH (10:15)
[2021-12-05] MEDS: ZINC SULFATE 220mg CAP or TAB PO SCH (10:15)
[2021-12-05] MEDS: DexAMETHasone SOD PHOS 4 MG/1ML SDV INJ IV SCH (10:15)
[2021-12-05] MEDS: CHOLECALCIFEROL (VITD3) 2,000 UNIT CAP/TAB PO SCH (10:16)
[2021-12-05] MEDS: ASCORBIC ACID 1,000 MG TAB PO SCH (10:16)
[2021-12-05] MEDS ORDERED: METF-370 PO (10:54)
[2021-12-05 13:10] VITALS: BP 120/57
== END 2021-12-05 13:00 | disposition home or self-care (01) | DRG 137 ==
LOC: ER 23:38 → TELE 12-01 05:26 → TELE-CENTR 12-01 14:55
PROVIDERS: ADMIT Psychiatry & Neurology Psychiatry; ATTEND Nurse Practitioner
PROC: XW033E5 Introduction of Remdesivir Anti-infective into Peripheral Vein, Percutaneous Approach, New Technology Group 5 (ICD-10-PCS; principal; 2021-12-01)
DX: U07.1 COVID-19 (principal); J96.21 Acute and chronic respiratory failure with hypoxia; J12.82 Pneumonia due to coronavirus disease 2019; E11.9 Type 2 diabetes mellitus without complications; I10 Essential (primary) hypertension; J45.909 Unspecified asthma, uncomplicated; Z90.49 Acquired absence of other specified parts of digestive tract; Z79.84 Long term (current) use of oral hypoglycemic drugs
CPT/HCPCS: 36415; 36600; 71045; 80053; 81001; 82805; 82962; 83735; 83880; 84484; 85025; 85379; 93005; 94640; 96365; 96367; G0378; J1100; J1815

== ENCOUNTER 2023-11-05 11:01 | Emergency (ER) | payer MEDICAID ==
[~2023-11-05] VITALS: Ht 152.4 cm; Wt 86.9 kg
[~2023-11-05 11:01] MED LIST changes: +AZIT500T66 PO; -LOSA-39 PO; +LOSA-535 PO; +PRED20TA2 PO
[2023-11-05 13:25] VITALS: BP 121/61; PULSE 78; RESP 18; TEMP 98.2; O2SAT 95
== END 2023-11-05 13:28 | disposition home or self-care (01) ==
LOC: ER 11:01
DX: Z13.89 Encounter for screening for other disorder (principal); I10 Essential (primary) hypertension; E11.9 Type 2 diabetes mellitus without complications; J45.909 Unspecified asthma, uncomplicated; Z98.890 Other specified postprocedural states; Z79.899 Other long term (current) drug therapy

== ENCOUNTER 2024-09-21 15:01 | Emergency (ER) | payer MEDICAID ==
[~2024-09-21] VITALS: Ht 152.4 cm; Wt 77.0 kg
--- NOTE | 2024-09-21 16:15 | ED.PDOC ---
SOB-HPI HPI Comments 83 y/o F, with PMHx of asthma, HTN, and DM presents to the ED for CC of shortness of breath. Patient states she has been experiencing shortness of breath, onset this morning (09/21/24); following running out of her oxygen. Patient reports, that she has been on continuous oxygen for x1year. Patient relays, that she was recently seen at [facility] for symptoms and was told to have fluid retention and low oxygen saturations. Patient denies active chest pain, palpitations, cough, or bilateral leg swelling. No other symptoms or modifying factors present at this time. 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 History Family History Family History: Reviewed,noncontributory to illness Social History Smoker: Non-Smoker Alcohol: Denies ETOH Use Drugs: Denies Drug Use Lives In: Home Constitutional: denies: chills, diaphoresis, fatigue, fever, malaise, sweats, weakness, others EENTM: denies: blurred vision, double vision, ear bleeding, ear discharge, ear drainage, ear pain, ear ringing, eye pain, eye redness, hearing loss, mouth pain, mouth swelling, nasal discharge, nose bleeding, nose congestion, nose pain, photophobia, tearing, throat pain, throat swelling, voice changes, others Respiratory: reports: shortness of breath; denies: cough, hemoptysis, orthopnea, SOB at rest, SOB with excertion, stridor, wheezing, others Cardiovascular: denies: chest pain, dizzy spells, diaphoresis, Dyspnea on exertion, edema, irregular heart beat, left arm pain, lightheadedness, palpitations, PND, syncope, others Gastrointestinal: denies: abdomen distended, abdominal pain, blood streaked bowels, constipated, diarrhea, dysphagia, difficulty swallowing, hematemesis, melena, nausea, poor appetite, poor fluid intake, rectal bleeding, rectal pain, vomiting, others Genitourinary: denies: abnormal vagina bleeding, burning, dyspareunia, dysuria, flank pain, frequency, hematuria, incontinence, pain, , vagina discharge, urgency, others Neurological: denies: dizziness, fainting, headache, left sided numbness, left sided weakness, numbness, paresthesia, pre-existing deficit, right sided numbnes s, right sided weakness, seizure, speech problems, tingling, tremors, weakness, others Musculoskeletal: denies: back pain, gout, joint pain, joint swelling, muscle pain, muscle stiffness, neck pain, others Integumetry: denies: bruises, change in color, change in hair/nails, dryness, laceration, lesions, lumps, rash, wounds, others Allergic/Immunocompromised: denies: Difficulty Healing, Frequent Infections, Hives, Itching, others Hematologic/Lymphatic: denies: anemia, blood clots, easy bleeding, easy bruising, swollen glands, others Endocrine: denies: excessive hunger, excessive sweating, excessive thirst, excessive urination, flushing, intolerance to cold, intolerance to heat, unexplained weight gain, unexplained weight loss, others Psychiatric: denies: anxiety, bipolar disorder, depression, hopeless, panic disorder, schizophrenia, sleepless, suicidal, others All Other Systems: Reviewed and Negative Physical Exam General Appearance: Moderate Distress HEENT: Normal ENT Inspection, Pharynx Normal, TMs Normal Neck: Full Range of Motion, Non-Tender, Normal, Normal Inspection Respiratory: Chest Non-Tender, Lungs Clear, No Accessory Muscle Use, No Respiratory Distress, Normal Breath Sounds Cardiovascular: No Edema, No JVD, No Murmur, No Gallop, Normal Peripheral Pulses, Regular Rate/Rhythm Breast Exam: Deferred Gastrointestinal: No Organomegaly, Non Tender, No Pulsatile Mass, Normal Bowel Sounds, Soft Genitalia: Deferred Pelvic: Deferred Rectal: Deferred Extremities: No calf tenderness, Normal capillary refill, No pedal edema Musculoskeletal : Apperance: Normal Neurologic: Alert, spinner cap frame II-XII nml as Tested, Motor Weakness, Normal Affect, Normal Mood, No Sensory Deficits Cerebellar Function: Normal Reflexes: Normal Skin: Dry, Normal Color, Warm Lymphatic: No Adenopathy Was a procedure done? Was a procedure done?: No Differential Dx Differential Diagnosis: Asthma, CHF, Pneumonia, Sinusitis, Pharyngitis, URI X-Ray, Labs, Meds, VS Vital Signs Date Time Temp Pulse Resp B/P (MAP) Pulse Ox O2 Delivery O2 Flow Rate FiO2 09/21/24 16:19 99.1 78 20 120/44 (69) 96 99.1 09/21/24 15:51 74 Lab Test 09/21/24 17:33 09/21/24 16:38 Range/Units Troponin I High Sensitivity Pending 13 </=34 ng/L White Blood Count 5.4 4.4-10.8 10^3/uL Red Blood Count 6.06 H 4.0-5.20 10^6/uL Hemoglobin 13.6 12.2-16.2 g/dL Hematocrit 43.8 36.0-46.0 % Mean Corpuscular Volume 72.3 L 80.0-100.0 fL Mean Corpuscular Hemoglobin 22.5 L 28.0-32.0 pg Mean Corpuscular Hemoglobin Concent 31.0 L 32.0-36.0 g/dL Red Cell Distribution Width 19.9 H 11.8-14.3 % Platelet Count 178 140-450 10^3/uL Mean Platelet Volume 8.3 6.9-10.8 fL Neutrophils (%) (Auto) 51.2 37.0-80.0 % Lymphocytes (%) (Auto) 35.6 10.0-50.0 % Monocytes (%) (Auto) 12.6 H 0.0-12.0 % Eosinophils (%) (Auto) 0.0 0.0-7.0 % Basophils (%) (Auto) 0.6 0.0-2.0 % Neutrophils # (Auto) 2.8 1.6-8.6 10 ^3/uL Lymphocytes # (Auto) 1.9 0.4-5.4 10 ^3/uL Monocytes # (Auto) 0.7 0-1.3 10 ^3/uL Eosinophils # (Auto) 0 0-0.8 10 ^3/uL Basophils # (Auto) 0 0-0.2 10 ^3/uL Nucleated Red Blood Cells 0.0 % Sodium Level 138 136-145 mmol/L Potassium Level 4.1 3.5-5.1 mmol/L Chloride Level 97 L 98-107 mmol/L Carbon Dioxide Level 34 H 20-31 mmol/L Anion Gap 7 5-15 Blood Urea Nitrogen 15 9-23 mg/dL Creatinine 0.61 0.550-1.02 mg/dL Glomerular Filtration Rate Calc 89 >90 mL/min BUN/Creatinine Ratio 24.6 H 10.0-20.0 Serum Glucose 180 H 74-106 mg/dL Calcium Level 9.9 8.7-10.4 mg/dL B-Type Natriuretic Peptide 51.14 0-100 pg/mL CXR: IMPRESSION: 1. No evidence of acute disease. The patient's CBC is within normal limits The chemistry panel is within normal limits The patient's glucose is 100 and The troponin level is negative At this time, the patient is being admitted with a diagnosis of acute myocardial ischemia We did send the EKG to the field spec and is read as not a STEMI Images Reviewed?: Images reviewed and evaluated by me Time of 1ST Reevaluation: 16:30 Reevaluation 1ST: Unchanged Patient Education/Counseling: Diagnosis, Treatment, Prognosis Family Education/Counseling: No Family Present Departure 1 Departure Time of Disposition: 18:07 Impression: Primary Impression: Acute myocardial ischemia Disposition: 09 ADMITTED INPATIENT Admit to: [facility] Condition: Fair Critical Care Note Critical Care Time?: No Stability Stability form required: Yes Unstable for transfer: Telemetry monitoring (Telemetry monitoring required), ED Physician Assesment (Clinical assesment) Heart Score Heart Score: Heart Score Response (Comments) Value History Moderate Suspicious 1 EKG Repolarization Disturb 1 Age >65 2 Risk Factors >3 or Hx ASHD 2 Troponin Normal limit 0 Total 6 I personally scribed for LA MALDONADO MD ([email or web address]) on 09/21/24 at 16:15. Electronically submitted by Lexi Hagen ([email or web address]). I personally scribed for LA MALDONADO MD ([email or web address]) on 09/21/24 at 16:40. Electronically submitted by Lexi Hagen ([email or web address]). LA MALDONADO MD September 21, 2024 16:15
[2024-09-21 16:19] VITALS: BP 120/44; PULSE 78; RESP 20; TEMP 99.1; O2SAT 96
--- NOTE | 2024-09-21 16:38 | DVH ---
CHEST RADIOGRAPH Indication: sob Technique: Frontal and lateral view of the chest was obtained Comparison: CHEST TWO VIEWS ROUTINE on DOS: 07/14/21 FINDINGS: Lines and Tubes: None Lungs: Clear Pleura: Blunting of the left costophrenic sulcus suggesting small pleural effusion or pleural reactio n. This is unchanged from prior study. No pneumothorax. Cardiomediastinal contours: Unremarkable Bones: Unremarkable IMPRESSION: 1. No evidence of acute disease.
[2024-09-21 16:45] LABS: Basophils # (auto) 0 10 ^3/uL (0-0.2); Basophils % (auto) 0.6 % (0.0-2.0); Eosinophils # (auto) 0 10 ^3/uL (0-0.8); Hematocrit 43.8 % (36.0-46.0); Hemoglobin 13.6 g/dL (12.2-16.2); Lymphocytes # (auto) 1.9 10 ^3/uL (0.4-5.4); Lymphocytes % (auto) 35.6 % (10.0-50.0); Mean Corpuscular Hemoglobin 22.5 pg (28.0-32.0); Mean Corpuscular Volume 72.3 fL (80.0-100.0); Monocytes # (auto) 0.7 10 ^3/uL (0-1.3); Monocytes % (auto) 12.6 % (0.0-12.0); Neutrophils # (auto) 2.8 10 ^3/uL (1.6-8.6); Neutrophils % (auto) 51.2 % (37.0-80.0); Platelet Count (auto) 178 10^3/uL (140-450); Red Blood Cells 6.06 10^6/uL (4.0-5.20); Red Cell Distribution Width 19.9 % (11.8-14.3); White Blood Cell 5.4 10^3/uL (4.4-10.8)
[2024-09-21 16:52] LABS: Potassium 4.1 mmol/L (3.5-5.1); Sodium 138 mmol/L (136-145)
[2024-09-21 16:53] LABS: Anion Gap 7 (5-15); Carbon Dioxide 34 mmol/L (20-31); Chloride 97 mmol/L (98-107)
[2024-09-21 16:54] LABS: Calcium 9.9 mg/dL (8.7-10.4)
[2024-09-21 16:59] LABS: BUN/Creatinine Ratio 24.6 (10.0-20.0); Blood Urea Nitrogen 15 mg/dL (9-23); Glucose 180 mg/dL (74-106)
--- NOTE | 2024-09-22 09:56 | ECG ---
[facility] Test Date: 2024-09-21 Test Time: 15:51:07 Pat Name: TRINA FAY Department: ER Room: Gender: F Billing Rep: ARCADIO : 1940 Requested By: LA MALDONADO Order Number: [id number] Reading MD: Chris Quintero Measurements Intervals [place] Rate: 74 P: 7 IN: 143 QRS: 117 QRSD: 83 T: -20 QT: 343 QTc: 381 Interpretive Statements Sinus rhythm Lateral infarct, acute Electronically Signed On 09-22-2024 13:14:31 PDT by Chris Quintero Please click the below link to view image of tracing.
== END 2024-09-21 22:41 | disposition left against medical advice (07) ==
LOC: ER 15:18
DX: I51.3 Intracardiac thrombosis, not elsewhere classified (principal); E11.9 Type 2 diabetes mellitus without complications; I10 Essential (primary) hypertension; J45.909 Unspecified asthma, uncomplicated; Z90.49 Acquired absence of other specified parts of digestive tract
CPT/HCPCS: 36415; 71046; 80048; 83880; 84484; 85025; 93005

== ENCOUNTER 2024-12-05 16:55 | Inpatient (IN) | payer MEDICAID ==
[~2024-12-05] VITALS: Ht 160 cm; Wt 75.7 kg
[~2024-12-05 16:55] MED LIST changes: +FURO20TA4 PO
--- NOTE | 2024-12-05 17:05 | ED.PDOC ---
HPI Comments 84 y.o female with PMHx of DM, HTN, HLD, and recurrent PNA, presents to the ED via EMS for an initial complaint of generalized weakness x 4-5 days now associated with palpitations x 4 hours ago. EMS reports patient's last PNA diagnosis was in August, usually saturates in the 70's then so she was placed on 2 liters of home oxygen. EMS reported a SPO2 of 77% RA today while assisting patient to the rney and placed her on 3 liters now saturating at 98%. Patient reports no pain or any other symptoms. Patient had a BG of 165. Per family on scene, daughter tried to measure her vital and noticed HR was in the 140's. No chest pain reported. Chief Complaint: General Weakness Time Seen by MD: 16:56 Primary Care Provider: JUSTIN Reviewed Notes: Nurses Notes, It Business Analyst Notes, Medications, Allergies Allergies: Coded Allergies: NO KNOWN ALLERGIES (Unverified , 05/30/21) Home Meds Active Scripts Metformin Hydrochloride (Metformin Hcl) 500 Mg Tab, 1 TAB PO BID, #60 TAB 3 Refills Prov:DEVON CALDWELL NP 12/05/21 Azithromycin (Azithromycin) 500 Mg Tab, 1 TAB PO DAILY for 7 Days, #7 TAB Prov:DEVON CALDWELL NP 12/05/21 Prednisone (Prednisone) 20 Mg Tab, 20 MG PO DAILY for 5 Days, #5 MG Prov:DEVON CALDWELL NP 12/05/21 Albuterol Sulfate (VENTOLIN MDI) 90 Mcg Ih, 180 MCG IN TIDPRN PRN for 30 Days, #1 INH Prov:DEVON CALDWELL NP 06/04/21 Reported Medications Metformin Hydrochloride (Metformin Hcl) 500 Mg Tab, 1 TAB PO BID 05/31/21 Atorvastatin Calcium (ATORVASTATIN CALCIUM) 10 Mg Tab, 1 TAB PO DAILY 05/31/21 Losartan Potassium (Losartan Potassium) 100 Mg Tab, 1 TAB PO DAILY 05/31/21 Information Source: Patient, Emergency Med Personnel Mode of Arrival: EMS Severity: Moderate Timing: Days Duration: Since onset Prehospital treatment: 12 Lead EKG, Accucheck (165), 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, Oxygen (3 liters) Onset: At Rest Cardiac Risk Factors: Hyperlipidemia, HTN, Diabetes PE Risk Factors: None History of: None Modifying Factors: Nothing Associated Signs and Symptoms: Palpitations Past Medical History PAST MEDICAL HISTORY: Asthma, DM, HTN Surgical 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: No Pertinent SUPERVISOR TAN ROOM History Family History Family History: Reviewed,noncontributory to illness Social History Smoker: Non-Smoker Alcohol: Denies ETOH Use Drugs: Denies Drug Use Lives In: Home Constitutional: reports: weakness; denies: chills, diaphoresis, fatigue, fever, malaise, sweats, others EENTM: denies: blurred vision, double vision, ear bleeding, ear discharge, ear drainage, ear pain, ear ringing, eye pain, eye redness, hearing loss, mouth pain, mouth swelling, nasal discharge, nose bleeding, nose congestion, nose pain, photophobia, tearing, throat pain, throat swelling, voice changes, others Respiratory: denies: cough, hemoptysis, orthopnea, SOB at rest, shortness of breath, SOB with excertion, stridor, wheezing, others Cardiovascular: denies: chest pain, dizzy spells, diaphoresis, Dyspnea on exertion, edema, irregular heart beat, left arm pain, lightheadedness, palpit ations, PND, syncope, others Gastrointestinal: denies: abdomen distended, abdominal pain, blood streaked b owels, constipated, diarrhea, dysphagia, difficulty swallowing, hematemesis, melena, nausea, poor appetite, poor fluid intake, rectal bleeding, rectal pain, vomiting, others Genitourinary: denies: abnormal vagina bleeding, burning, dyspareunia, dysuria, flank pain, frequency, hematuria, incontinence, pain, , vagina discharge, urgency, others Neurological: denies: dizziness, fainting, headache, left sided numbness, left sided weakness, numbness, paresthesia, pre-existing deficit, right sided numbness, right sided weakness, seizure, speech problems, tingling, tremors, weakness, others Musculoskeletal: denies: back pain, gout, joint pain, joint swelling, muscle pain, muscle stiffness, neck pain, others Integumetry: denies: bruises, change in color, change in hair/nails, dryness, laceration, lesions, lumps, rash, wounds, others Allergic/Immunocompromised: denies: Difficulty Healing, Frequent Infections, Hives, Itching, others Hematologic/Lymphatic: denies: anemia, blood clots, easy bleeding, easy brui sing, swollen glands, others Endocrine: denies: excessive hunger, excessive sweating, excessive thirst, ex cessive urination, flushing, intolerance to cold, intolerance to heat, unexplained weight gain, unexplained weight loss, others Psychiatric: denies: anxiety, bipolar disorder, depression, hopeless, panic disorder, schizophrenia, sleepless, suicidal, others Physical Exam General Appearance: Moderate Distress HEENT: Normal ENT Inspection, Pharynx Normal, TMs Normal Neck: Full Range of Motion, Non-Tender, Normal, Normal Inspection Respiratory: Chest Non-Tender, Lungs Clear, No Accessory Muscle Use, No Respiratory Distress, Normal Breath Sounds Cardiovascular: No Edema, No JVD, No Murmur, No Gallop, Normal Peripheral Pul ses, Regular Rate/Rhythm Breast Exam: Deferred Gastrointestinal: No Organomegaly, Non Tender, No Pulsatile Mass, Normal Bowel Sounds, Soft Genitalia: Deferred Pelvic: Deferred Rectal: Deferred Extremities: No calf tenderness, Normal capillary refill, Normal inspection, Normal range of motion, Non-tender, No pedal edema Musculoskeletal : Apperance: Normal Neurologic: 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 Was a procedure done?: No CP Differential Dx Differential Diagnosis: Angina, Anxiety / Panic Attack, Electrolyte Disorder, Sinus Tachycardia X-Ray, Labs, Meds, VS Vital Signs Date Time Temp Pulse Resp B/P (MAP) Pulse Ox O2 Delivery O2 Flow Rate FiO2 12/05/24 18:40 104 12/05/24 18:16 98.0 98 24 125/73 (90) 98 98.0 12/05/24 18:15 Nasal Cannula* 3 32 12/05/24 17:12 96 12/05/24 17:01 98.0 95 28 127/79 (95) 95 98.0 12/05/24 16:59 96 Lab Test 12/05/24 19:47 12/05/24 18:10 12/05/24 17:12 Range/Units Urine Color Light-yellow Yellow Urine Clarity Clear Clear Urine pH 6.0 5.0-9.0 Urine Specific [place] 1.013 1.001-1.035 Urine Protein Negative Negative Urine Ketones Negative Negative Urine Blood Negative Negative /uL Urine Nitrite Negative Negative Urine Bilirubin Negative Negative Urine Urobilinogen Normal Negative mg/dL Urine Leukocyte Esterase Negative Negative /uL Urine RBC <1 0 - 4 /hpf Urine Microscopic WBC 1 0-5 /HPF Urine Squamous Epithelial Cells Few <5 /hpf Urine Bacteria Few H None Seen /hpf Urine Glucose Normal Normal mg/dL Troponin I High Sensitivity 44 *H 40 *H </=34 ng/L White Blood Count 9.4 4.4-10.8 10^3/uL Red Blood Count 5.80 H 4.0-5.20 10^6/uL Hemoglobin 12.8 12.2-16.2 g/dL Hematocrit 42.0 36.0-46.0 % Mean Corpuscular Volume 72.4 L 80.0-100.0 fL Mean Corpuscular Hemoglobin 22.0 L 28.0-32.0 pg Mean Corpuscular Hemoglobin Concent 30.4 L 32.0-36.0 g/dL Red Cell Distribution Width 20.6 H 11.8-14.3 % Platelet Count 296 140-450 10^3/uL Mean Platelet Volume 8.2 6.9-10.8 fL Neutrophils (%) (Auto) 69.3 37.0-80.0 % Lymphocytes (%) (Auto) 17.1 10.0-50.0 % Monocytes (%) (Auto) 13.4 H 0.0-12.0 % Eosinophils (%) (Auto) 0.0 0.0-7.0 % Basophils (%) (Auto) 0.2 0.0-2.0 % Neutrophils # (Auto) 6.5 1.6-8.6 10 ^3/uL Lymphocytes # (Auto) 1.6 0.4-5.4 10 ^3/uL Monocytes # (Auto) 1.3 0-1.3 10 ^3/uL Eosinophils # (Auto) 0 0-0.8 10 ^3/uL Basophils # (Auto) 0 0-0.2 10 ^3/uL Nucleated Red Blood Cells 0.0 % Sodium Level 136 136-145 mmol/L Potassium Level 5.2 H 3.5-5.1 mmol/L Chloride Level 97 L 98-107 mmol/L Carbon Dioxide Level 35 H 20-31 mmol/L Anion Gap 4 L 5-15 Blood Urea Nitrogen 25 H 9-23 mg/dL Creatinine 0.59 0.550-1.02 mg/dL Glomerular Filtration Rate Calc 89 >90 mL/min BUN/Creatinine Ratio 42.4 H 10.0-20.0 Serum Glucose 149 H 74-106 mg/dL Calcium Level 9.4 8.7-10.4 mg/dL Current Medications Medications (Trade) Dose Ordered Sig/Barney Route Start Time Stop Time Status Last Admin Sodium Chloride 500 ml @ 500 mls/hr Q1H ONCE IV 12/05/24 17:15 12/05/24 18:14 DC 12/05/24 18:25 IV Hep-Lock was established The patient was given normal saline at a 500 cc bolus The patient's chemistry panel shows hyperkalemia at 5.2 The rest of the chemistry panel is within normal limits The glucose is 149 CBC is within normal limits The troponin level is elevated at 40 and 44 At this time, the urine test is negative The patient is being admitted to the hospitalist Images Reviewed?: Images reviewed and evaluated by me Time of 1ST Reevaluation: 17:12 Reevaluation 1ST: Unchanged Patient Education/Counseling: Diagnosis, Treatment, Prognosis Family Education/Counseling: No Family Present SEPSIS Sepsis Screen Physician Orders Electrocardigram (12/05/24 17:01) Electrocardigram (12/05/24 18:01) Electrocardigram (12/05/24 20:01) Chest Portable (12/05/24 17:01) Heplock Iv (12/05/24 17:01) 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 (12/05/24 17:01) Blood Pressure (12/05/24 17:01) Pulse Oximetry (12/05/24 17:01) Covid19 Antigen [place] (12/05/24 ) Troponin-I Hs (12/05/24 20:01) Vital Signs Date Time Temp Pulse Resp B/P (MAP) Pulse Ox O2 Delivery O2 Flow Rate FiO2 12/05/24 18:40 104 12/05/24 18:16 98.0 98 24 125/73 (90) 98 98.0 12/05/24 18:15 Nasal Cannula* 3 32 12/05/24 17:12 96 12/05/24 17:01 98.0 95 28 127/79 (95) 95 98.0 12/05/24 16:59 96 Laboratory Tests Test 12/05/24 17:12 White Blood Count 9.4 10^3/uL (4.4-10.8) Medications Medications Dose Ordered Sig/Barney Route Start Time Stop Time Status Last Admin Dose Admin Sodium Chloride 500 ml @ 500 mls/hr Q1H ONCE IV 12/05/24 17:15 12/05/24 18:14 DC 12/05/24 18:25 Departure 1 Departure Time of Disposition: 20:12 Impression: Primary Impression: Generalized weakness Additional Impression: Failure to thrive Qualified Codes: R62.7 - Adult failure to thrive Disposition: ADMITTED INPATIENT Admit to: Tele Condition: Fair Critical Care Note Critical Care Time?: Yes (45 min-critical care time only) Stability Stability form required: Yes Unstable for transfer: Telemetry monitoring (Telemetry monitoring required), ED Physician Assesment (Clinical assesment) Heart Score Heart Score: Heart Score Response (Comments) Value History Slightly Suspicious 0 EKG Normal 0 Age >65 2 Risk Factors >3 or Hx ASHD 2 Troponin 1-2 x's Normal limit 1 Total 5 I personally scribed for LA MALDONADO MD ([email or web address] [facility]) on 12/05/24 at 17:05. Electronically submitted by Jolie Cohn ([email or web address]). I personally scribed for LA MALDONADO MD ([facility]) on 12/05/24 at 17:12. Electronically submitted by Jolie Cohn ([email or web address]). LA MALDONADO MD Dec 05, 2024 17:05
[2024-12-05 17:25] LABS: Hematocrit 42.0 % (36.0-46.0); Hemoglobin 12.8 g/dL (12.2-16.2); Mean Corpuscular Hemoglobin 22.0 pg (28.0-32.0); Mean Corpuscular Volume 72.4 fL (80.0-100.0); Nucleated Red Blood Cells % 0.0 %
[2024-12-05 17:31] LABS: Anion Gap 4 (5-15)
[2024-12-05 17:32] LABS: Calcium 9.4 mg/dL (8.7-10.4)
[2024-12-05 17:37] LABS: BUN/Creatinine Ratio 42.4 (10.0-20.0)
--- NOTE | 2024-12-05 17:47 | DVH ---
AP portable chest Comparison: 09/21/2024 CLINICAL INDICATION: weakness FINDINGS: Heart size is enlarged. Slight bronchovascular prominence is present in the lower lung zone s especially on the left IMPRESSION: 1. Cardiomegaly. Question mild or early congestive changes
[2024-12-05 18:25] LABS: Blood Urea Nitrogen 25 mg/dL (9-23); Carbon Dioxide 35 mmol/L (20-31); Chloride 97 mmol/L (98-107); Glucose 149 mg/dL (74-106); Potassium 5.2 mmol/L (3.5-5.1); Sodium 136 mmol/L (136-145)
[2024-12-05] MEDS: SODIUM CHLORIDE 0.9% 500 ML IV ONE (18:25)
[2024-12-05 19:25] VITALS: RESP 20; O2SAT 93
[2024-12-05 20:03] LABS: Urine Protein, UAD Negative (Negative)
[2024-12-05] MEDS ORDERED: ALBUTEROL SULF 2.5 MG/0.5ML(0.5%) NEB SOLN NEB SCH (22:30)
[2024-12-05] MEDS ORDERED: DEXTROSE (50%) 50ML SYRG IV PRN (22:30)
[2024-12-05] MEDS ORDERED: IPRATROPIUM BROM 0.5 MG/2.5ML INH SOL NEB PRN (22:30)
[2024-12-05] MEDS: FUROSEMIDE 20 MG/2 ML VIAL IV ONE (22:30)
--- NOTE | 2024-12-05 22:41 | DVHHPRES ---
History of Present Illness Resident Creating Document: RENETTA BENDER RESIDENT History of Present Illness Kristal Arellano is a 64 yo female, with past medical history of COPD (home oxygen 2L), asthma, HTN, DM2, Hyperlipidemia, CHF and recurrent pneumonia. The patient visit the ED with the complain of generalized weakness, fatigue, SOB and bilateral leg swelling. The EMS team reported low SPO2 of 77%. ABG showed pH 7.23 and PCO2 83.1, patient was placed in O2 4 L, now saturating at 93%. BG of 165. Per family on scene, daughter reported recurrent pneumonias, last episode in 2 months ago. Patient denies fever, chills, chest pain, dizziness or other. Cardiovascular: CHF, HTN, hyperipidemia Pulmonary: Asthma, COPD, Pneumonia Past Surgical History: Cholecystectomy Family History: None Smoke: No ALCOHOL: none Drugs: None Lives: with Family Review of Systems Constitutional: Yes: Weakness, Malaise Eyes: No: Pain, Vision change, Conjunctivae inflammation, Eyelid inflammation, Other, Redness ENT: No: Ear pain, Ear discharge, Nose pain, Nose discharge, Nose congestion, Mouth pain, Mouth swelling, Throat pain, Throat swelling, Other Respiratory: Shortness of breath, SOB with excertion Cardiovascular: Palpitations Gastrointestinal: Constipation; No: Nausea, Vomiting, Abdominal Pain, Diarrhea, Melena, Hematochezia, Other Genitourinary: No Dysuria, No Frequency, No Incontinence, No Hematuria, No Retention, No Other Musculoskeletal: No: other, neck pain, shoulder pain, arm pain, back pain, hand pain, leg pain, foot pain Skin: No: Rash, Lesions, Jaundice, Bruising, Other Neurological: No: Weakness, Numbness, Incoordination, Change in speech, Confusion, Seizures, Other Allergies: Coded Allergies: NO KNOWN ALLERGIES (Unverified , 05/30/21) Exam Vital Signs Vital Signs Date Time Temp Pulse Resp B/P (MAP) Pulse Ox O2 Delivery O2 Flow Rate FiO2 12/05/24 20:00 112 12/05/24 18:16 98.0 24 125/73 (90) 98 98.0 12/05/24 18:15 Nasal Cannula* 3 32 General Appearance: Alert, Oriented X3, Cooperative, mild distress HEENT: Atraumatic, PERRLA, Mucous membr. moist/pink Respiratory: Other (Reduced lung expansion, crackles in both long bases.) Cardiovascular: Regular rate, Normal S1, Normal S2, No murmurs Abdominal: Normal bowel sounds, Soft, No tenderness, No masses Extremities: No clubbing, No cyanosis, Other (Bilateral pitting low extremity edema) Skin: No rashes, No breakdown, No significant lesion Neuro: Normal gait, Normal speech, Strength at 5/5 X4 ext, Normal tone, Sensation intact, Cranial nerves 3-12 NL Psych/Mental Status: Mental status NL, Mood NL Labs/Xrays Labs Test 12/05/24 20:28 12/05/24 19:47 12/05/24 17:12 12/05/24 00:00 Range/Units Troponin I High Sensitivity 43 *H </=34 ng/L Urine Color Light-yellow Yellow Urine Clarity Clear Clear Urine pH 6.0 5.0-9.0 Urine Specific [place] 1.013 1.001-1.035 Urine Protein Negative Negative Urine Ketones Negative Negative Urine Blood Negative Negative /uL Urine Nitrite Negative Negative Urine Bilirubin Negative Negative Urine Urobilinogen Normal Negative mg/dL Urine Leukocyte Esterase Negative Negative /uL Urine RBC <1 0 - 4 /hpf Urine Microscopic WBC 1 0-5 /HPF Urine Squamous Epithelial Cells Few <5 /hpf Urine Bacteria Few H None Seen /hpf Urine Glucose Normal Normal mg/dL White Blood Count 9.4 4.4-10.8 10^3/uL Red Blood Count 5.80 H 4.0-5.20 10^6/uL Hemoglobin 12.8 12.2-16.2 g/dL Hematocrit 42.0 36.0-46.0 % Mean Corpuscular Volume 72.4 L 80.0-100.0 fL Mean Corpuscular Hemoglobin 22.0 L 28.0-32.0 pg Mean Corpuscular Hemoglobin Concent 30.4 L 32.0-36.0 g/dL Red Cell Distribution Width 20.6 H 11.8-14.3 % Platelet Count 296 140-450 10^3/uL Mean Platelet Volume 8.2 6.9-10.8 fL Neutrophils (%) (Auto) 69.3 37.0-80.0 % Lymphocytes (%) (Auto) 17.1 10.0-50.0 % Monocytes (%) (Auto) 13.4 H 0.0-12.0 % Eosinophils (%) (Auto) 0.0 0.0-7.0 % Basophils (%) (Auto) 0.2 0.0-2.0 % Neutrophils # (Auto) 6.5 1.6-8.6 10 ^3/uL Lymphocytes # (Auto) 1.6 0.4-5.4 10 ^3/uL Monocytes # (Auto) 1.3 0-1.3 10 ^3/uL Eosinophils # (Auto) 0 0-0.8 10 ^3/uL Basophils # (Auto) 0 0-0.2 10 ^3/uL Nucleated Red Blood Cells 0.0 % Sodium Level 136 136-145 mmol/L Potassium Level 5.2 H 3.5-5.1 mmol/L Chloride Level 97 L 98-107 mmol/L Carbon Dioxide Level 35 H 20-31 mmol/L Anion Gap 4 L 5-15 Blood Urea Nitrogen 25 H 9-23 mg/dL Creatinine 0.59 0.550-1.02 mg/dL Glomerular Filtration Rate Calc 89 >90 mL/min BUN/Creatinine Ratio 42.4 H 10.0-20.0 Serum Glucose 149 H 74-106 mg/dL Calcium Level 9.4 8.7-10.4 mg/dL SEPSIS Sepsis Screen Date sepsis recognized/suspect: Dec 05, 2024 Time Sepsis recognized/suspect: 1654 Recent Procedure: No On Antibiotic Therapy: No Respiratory Rate >20: Yes Heart Rate >90: No Temp<36 C (96.8 F) or >38.3 C: No SBP <90 or MAP <65 mmHG: No New Acute Mental Status Change: No Is the patient on CPAP, BIPAP,: No Physician Orders Electrocardigram (12/05/24 17:01) Electrocardigram (12/05/24 18:01) Electrocardigram (12/05/24 20:01) Chest Portable (12/05/24 17:01) Heplock Iv (12/05/24 17:01) Dispute Resolution Analyst (12/05/24 17:01) Blood Pressure (12/05/24 17:01) Pulse Oximetry (12/05/24 17:01) Covid19 Antigen [place] (12/05/24 ) Admit (12/05/24 22:27) Code Status (12/05/24 22:27) Vital Signs .PER UNIT PROTOCOL (12/05/24 22:27) Review Orders With Adm. (12/05/24 22:) Notify Md Of Changes From Base (12/05/24 22:) Advance Directive (12/05/24:) Patient Condition (12/05/24:) Allergies (12/05/24:) Oxygen By Nasal Cannula (12/05/24:) Notify Md Of Changes From Base (12/05/24:) Internet Marketing Executive For 24 Hours (12/05/24:) Emergency Dysrhythmia Protocol (12/05/24:) Rhythm Strips Once Every Shift (12/05/24:) Glucose Blood (Accu-Chek Comfort Curve T (12/06/24 00:00) Moderate Insulin Ss (12/06/24 00:00) Dextrose 50% Syringe (12/05/24 22:30) Azithromycin 500 Mg Ivpb (12/06/24 10:00) Enoxaparin Sodium (Lovenox) (12/06/24 10:00) Pulse Oximeter Check (12/05/24:) Oxygen By Nasal Cannula (12/05/24:) Abg W/ Co-Ox (12/05/24:) Blood Culture (12/05/24:) Urine Microscopic (12/05/24:) B-Type Natriuretic Peptide (12/06/24 04:00) Echo 2d Mode Cardiac Dop (12/05/24:) Methylprednisolone Sod Succ (Solu Medrol (12/06/24 10:00) Albuterol Medneb (Ventolin Medneb) (12/05/24 22:30) Ipratropium Medneb (Atrovent Medneb) (12/05/24 22:30) Cont Med Neb Intial Tx (12/05/24 22:29) Ceftriaxone Ivpb Rocephin (12/06/24 10:00) Furosemide Injection (Lasix Injection) (12/05/24 22:30) Urinalysis (12/05/24:29) * Cardiology Consult (12/05/24 22:29) Rapid Influenza A&B (12/05/24:) Vital Signs Date Time Temp Pulse Resp B/P (MAP) Pulse Ox O2 Delivery O2 Flow Rate FiO2 12/05/24 20:00 112 12/05/24 18:40 104 12/05/24 18:16 98.0 98 24 125/73 (90) 98 98.0 12/05/24 18:15 Nasal Cannula* 3 32 12/05/24 17:12 96 12/05/24 17:01 98.0 95 28 127/79 (95) 95 98.0 12/05/24 16:59 96 Laboratory Tests Test 12/05/24 17:12 White Blood Count 9.4 10^3/uL (4.4-10.8) Medications Medications Dose Ordered Sig/Barney Route Start Time Stop Time Status Last Admin Dose Admin Sodium Chloride 500 ml @ 500 mls/hr Q1H ONCE IV 12/05/24 17:15 12/05/24 18:14 DC 12/05/24 18:25 500 MLS/HR Assessment/Plan Assessment/Plan #Acute on chronic COPD exacerbation likely due to pneumonia gram +/- Albuterol Ipatropium Ceftriaxone 1g IV Azitromicyn IV #Acute on chronic CHF exacerbation Furosemide 20mg IV BNP EKG ECHO Cardiac consult #NSTEMI type 2 Troponins 44, 40 34 #Asthma Albuterol Ipatropium Methylprednisolone IV #Hypertension Losartan 100 mg po qd #Hyperlipidemia Atrovastatin 10mg po qd # Type 2 DM Insulin sliding scale Cardiac diet DVT prophylaxis PUD prophylaxis Protonic Goals of care discussed with the patient > 35 min. Discussed plan of care with Dr. Salmeron Code status: Full code PCP: Tawnya Plan discussed with: Patient and daughter, patients and family member agree with the plan. Plan discussed with: Patient, Daughter My Orders Orders - RENETTA BENDER RESIDENT Procedure Category Date Status Time Admit ADMIT 12/05/24 Transmitted 22:27 Code Status CODE 12/05/24 Transmitted 22:27 Vital Signs EVI 12/05/24 In Process 22:27 Review Orders With [facility] 12/05/24 In Process Adm. 22:27 Notify Of Changes EVI 12/05/24 In Process From Base 22:27 Advance Directive EVI 12/05/24 In Process 22:27 Patient Condition ORDERS 12/05/24 Transmitted 22:27 Allergies EVI 12/05/24 In Process 22:27 Oxygen By Nasal RT 12/05/24 Transmitted Cannula 22:27 Notify Md Of Changes EVI 12/05/24 In Process From Base 22:27 Internet Marketing Executive For [facility] 12/05/24 In Process 24 Hours 22:27 Emergency Dysrhythmia [facility] 12/05/24 In Process Protocol 22:27 Rhythm Strips Once EVI 12/05/24 In Process Every Shift 22:27 Glucose Blood PHA 12/06/24 Transmitted (Accu-Chek Comfort 00:00 Moderate Insulin Ss PHA 12/06/24 Transmitted 00:00 Dextrose 50% Syringe PHA 12/05/24 Transmitted 22:30 Azithromycin 500 Mg PHA 12/06/24 Transmitted Ivpb 10:00 Enoxaparin Sodium PHA 12/06/24 Transmitted (Lovenox) 10:00 Pulse Oximeter Check RT 12/05/24 Transmitted 22:29 Oxygen By Nasal RT 12/05/24 Transmitted Cannula 22:29 Abg W/ Co-Ox RT 12/05/24 Transmitted 22:29 Blood Culture ANGELA 12/05/24 Transmitted 22:29 Urine Microscopic LAB 12/05/24 Transmitted 22:29 B-Type Natriuretic LAB 12/06/24 Verified Peptide 04:00 Echo 2d Mode Cardiac US 12/05/24 Transmitted DOP 22:29 Methylprednisolone PHA 12/06/24 Transmitted Sod Succ (Solu Medrol 10:00 Albuterol Medneb PHA 12/05/24 Transmitted (Ventolin Medneb) 22:30 Ipratropium Medneb PHA 12/05/24 Transmitted (Atrovent Medneb) 22:30 Cont Med Neb Intial Tx RT 12/05/24 Transmitted 22:29 Ceftriaxone Ivpb PHA 12/06/24 Transmitted Rocephin 10:00 Furosemide Injection PHA 12/05/24 Transmitted (Lasix Injection) 22:30 Urinalysis LAB 12/05/24 Transmitted 22:29 * Cardiology Consult CONS 12/05/24 Transmitted 22:29 Rapid Influenza A&B LAB 12/05/24 Transmitted 22:29 Common Visit Codes: 37042-[id number] INP/OBS CARE (HIGH) Secondary Visit Codes: 35440-[id number] CARE PLAN 30 MINUTES RENETTA BENDER RESIDENT Dec 05, 2024 22:41
[2024-12-05] MEDS: methylPREDNISolone SOD SUCC 125 MG/2 ML VL IV SCH (23:00)
[2024-12-05] MEDS ORDERED: ALBUTEROL SULF 2.5 MG/0.5ML(0.5%) NEB SOLN NEB PRN (23:00)
[2024-12-05 23:15] LABS: Base Excess 4.1 mmol/L (-2.0-3.0)
[2024-12-05 23:17] LABS: COVID19 ANTIGEN SOFIA FIA NEGATIVE (NEGATIVE)
[2024-12-05 23:45] VITALS: BP 114/64; PULSE 99; RESP 20; TEMP 98; O2SAT 93
[2024-12-06] VITALS (8 sets, daily range): BP systolic 105; BP diastolic 77; PULSE 74–112; RESP 16–29; O2SAT 89–100
[2024-12-06] MEDS: InsuLIN REG 1unit/0.01ml Soln (100units/ml) SC SCH
[2024-12-06] MEDS: ACCU-CHEK COMFORT CURVE STRIP VI SCH (00:16)
[2024-12-06 05:37] LABS: Hemoglobin 12.8 g/dL (12.2-16.2); Mean Corpuscular Hemoglobin 22.4 pg (28.0-32.0)
[2024-12-06 05:39] LABS: Hematocrit 41.7 % (36.0-46.0); Mean Corpuscular Volume 72.8 fL (80.0-100.0); Nucleated Red Blood Cells % 0.4 %
[2024-12-06 06:07] LABS: Alanine Aminotransferase 27 U/L (7-40); Anion Gap 5 (5-15); BUN/Creatinine Ratio 38.3 (10.0-20.0); Blood Urea Nitrogen 18 mg/dL (9-23); Potassium 5.0 mmol/L (3.5-5.1); Sodium 138 mmol/L (136-145); Total Protein 6.2 g/dL (5.7-8.2)
[2024-12-06 06:08] LABS: Albumin 4.3 g/dL (3.2-4.8)
[2024-12-06 06:09] LABS: Bilirubin, Total 0.6 mg/dL (0.2-1.0)
[2024-12-06 06:15] LABS: Alkaline Phosphatase 117 U/L (46-116); Calcium 8.7 mg/dL (8.7-10.4); Carbon Dioxide 36 mmol/L (20-31); Chloride 97 mmol/L (98-107); Glucose 164 mg/dL (74-106)
--- NOTE | 2024-12-06 07:26 | ECG ---
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
[2024-12-06 09:28] LABS: Base Excess 7.5 mmol/L (-2.0-3.0)
[2024-12-06] MEDS ORDERED: cefTRIAXone 1GM/50ML D5W 50 ML IV ONE (10:00)
[2024-12-06] MEDS: FUROSEMIDE 20 MG/2 ML VIAL IV SCH (10:00)
[2024-12-06] MEDS ORDERED: methylPREDNISolone SOD SUCC 125 MG/2 ML VL IV SCH (10:00)
[2024-12-06] MEDS: ENOXAPARIN SOD 30 MG/0.3 ML SYRINGE SC SCH (10:11)
[2024-12-06] MEDS: AZITHROMYCIN 500MG/ 250ML 250 ML IV SCH (10:11)
[2024-12-06] MEDS: IOHEXOL 350 MG/ML 100ML IJ ONE (10:16)
--- NOTE | 2024-12-06 10:52 | DVHINCON2 ---
Date Seen: Dec 06, 2024 Referring Physician MD Saurabh resident Reason for Consultation Acute CHF exacerbation History of Present Illness This is a Mongolian-speaking 84-year-old female patient who presents to the emergency room with chief complaint of shortness of breath. At the time of ass essment, the patient is only alert to self and place. The patient is a very poor historian and unable to tell me why she is in the hospital. The patient's daughter at bedside and able to provide more history. History obtained from medical records as well as bedside RN and patient's daughter. Cardiology has been consulted at this time for acute CHF exacerbation. Initial twelve lead electrocardiogram reveals sinus rhythm with diffuse T-wave depression. Initial troponin level of 40ng/L with flat trend thereafter. BNP level of 507.30pg/mL. The patient denies any cardiac symptoms at time of assessment. Significant past medical history includes congestive heart failure, hypertension, dyslipidemia, COPD with home O2, previous tracheostomy with reversal, type 2 diabetes mellitus, and dementia. The patient's daughter reports that the patient was scheduled to see a scrap carrier for an initial visit tomorrow, but does not recall the name of the scrap carrier. Past Medical History Past medical history reviewed. No other significant than mentioned above. Past Surgical History Tracheostomy with reversal Family History: Patient reports no known family medical history. Family History Family history reviewed. Social History Denies the use of tobacco, alcohol or illicit drugs. Allergies: Coded Allergies: NO KNOWN ALLERGIES (Unverified , 05/30/21) Home Meds Reported Medications Furosemide (Furosemide) 20 Mg Tab, 1 TAB PO DAILY for 100 Days, #100 12/06/24 Current Medications Current Medications Medications (Trade) Dose Ordered Sig/Barney Route PRN Reason Start Time Stop Time Status Last Admin Diagnostic Test (Pha) (Accu-Chek Comfort Curve T) 1 strip Q6HR 12/06/24 00:00 12/06/24 06:00 Insulin Human Regular (InsuLIN R) Q6HR SC 12/06/24 00:00 12/06/24 06:00 Dextrose 50 ml UD PRN IV Blood Sugar LESS THAN 60 12/05/24 22:30 Azithromycin 250 ml @ 125 mls/hr DAILY IV 12/06/24 10:00 12/06/24 10:11 Enoxaparin Sodium (Lovenox) 30 mg DAILY SC 12/06/24 10:00 12/06/24 10:11 Methylprednisolone Sodium Succinate (Solu Medrol) 125 mg DAILY IV 12/06/24 10:00 12/05/24 22:55 DC Albuterol (Ventolin Medneb) 2.5 mg 6XD NEB 12/05/24 22:30 12/05/24 23:01 DC Ipratropium Coleman (Atrovent Medneb) 0.5 mg Q4HP PRN NEB SHORTNESS OF BREATH 12/05/24 22:30 12/05/24 23:01 DC Methylprednisolone Sodium Succinate (Solu Medrol) 40 mg BID IV 12/05/24 23:00 12/06/24 10:16 Albuterol (Ventolin Medneb) 2.5 mg Q6HP PRN NEB Asthma 12/05/24 23:00 12/06/24 07:51 DC Ipratropium Coleman (Atrovent Medneb) 0.5 mg Q6HP PRN NEB SHORTNESS OF BREATH 12/05/24 23:00 Levalbuterol HCl (Xopenex Medneb) 1.25 mg Q6HR NEB 12/06/24 12:00 Furosemide (Lasix Injection) 20 mg DAILY IV 12/06/24 10:00 Cefepime HCl 50 ml @ 12.5 mls/hr Q8HR IV 12/06/24 14:00 Review of Systems Constitutional: Generalized weakness Ears, Nose, & Throat: No symptom reported Eyes: No symptom reported Neurological: No symptoms reported Pulmonary/Respiratory: Shortness of breath Cardiovascular: No symptom reported Gastrointestinal: No symptom reported Genitourinary: No symptom reported Musculoskeletal: No symptom reported Skin: No symptom reported Psychiatric: No symptom reported Endocrine: No symptom reported Hematologic/Lymphatic: No symptom reported Vital Signs Vital Signs Date Time Temp Pulse Resp B/P (MAP) Pulse Ox O2 Delivery O2 Flow Rate FiO2 12/06/24 10:30 112 105/77 90 Facial BiPAP Mask 35 12/06/24 08:00 16 4 12/06/24 08:00 97.2 97.2 Physical Exam General Appearance: Cooperative. Well-developed. Well-nourished. No acute distress. Pulmonary/Respiratory: Clear, bilateral breaths sounds. Cardiovascular/Chest: Regular rate and rhythm. Peripheral Pulses: 2+ Radial (R). 2+ Radial (L). 2+ Pedal (R). 2+ Pedal (L) Abdominal Exam: Normal bowel sounds. Ankle Exam: Negative ankle edema Lower extremities: Negative lower extremity edema Neuro/Mental Status: A/OX2, confused Thoughts/Psych: Appropriate mood and affect Appearance: No acute distress. Skin Exam: Normal inspection. Normal color. Warm and dry. Labs/Diagnostic Data Labs Test 12/06/24 09:18 12/06/24 06:05 12/06/24 04:55 12/05/24 23:09 Range/Units Blood Gas Specimen Type Arterial Blood Gas Sample Site Right radial Blood Gas Patient Temperature 37.0 Arterial Blood Date Drawn [id number] Arterial Blood pH 7.194 *L 7.350-7.450 Arterial Blood Partial Pressure CO2 105.6 *H 32.0-45.0 mmHg Arterial Blood Partial Pressure O2 91.4 83.0-108.0 mmHg Arterial Blood HCO3 39.8 H 21.0-28.0 mmol/L Arterial Blood Oxygen Saturation 95.1 94.0-98.0 % Arterial Blood Base Excess 7.5 H -2.0-3.0 mmol/L Arterial Blood Oxyhemoglobin 93.3 L 94.0-98.0 % Arterial Blood Carboxyhemoglobin 1.4 0.5-1.5 % Arterial Blood Methemoglobin 0.5 0.0-1.5 % Rosalio Test Yes Blood Gas Total Hemoglobin 13.80 12.0-16.0 g/dL Blood Gas Liter Flow 4.00 Blood Gas Modality Nasal cannula FiO2 % 36.0 Blood Gas Critical Value Read Back yes Blood Gas Notified Whom nelia gaona md Blood Gas Notified Time [id number] Blood Gas Notified By oksana vinson rrt Influenza Type A Antigen Negative Negative Influenza Type B Antigen Negative Negative White Blood Count 8.5 4.4-10.8 10^3/uL Red Blood Count 5.72 H 4.0-5.20 10^6/uL Hemoglobin 12.8 12.2-16.2 g/dL Hematocrit 41.7 36.0-46.0 % Mean Corpuscular Volume 72.8 L 80.0-100.0 fL Mean Corpuscular Hemoglobin 22.4 L 28.0-32.0 pg Mean Corpuscular Hemoglobin Concent 30.8 L 32.0-36.0 g/dL Red Cell Distribution Width 20.5 H 11.8-14.3 % Platelet Count 257 140-450 10^3/uL Mean Platelet Volume 8.3 6.9-10.8 fL Neutrophils (%) (Auto) 94.3 H 37.0-80.0 % Lymphocytes (%) (Auto) 4.6 L 10.0-50.0 % Monocytes (%) (Auto) 1.1 0.0-12.0 % Eosinophils (%) (Auto) 0.0 0.0-7.0 % Basophils (%) (Auto) 0.0 0.0-2.0 % Neutrophils # (Auto) 8.0 1.6-8.6 10 ^3/uL Lymphocytes # (Auto) 0.4 0.4-5.4 10 ^3/uL Monocytes # (Auto) 0.1 0-1.3 10 ^3/uL Eosinophils # (Auto) 0 0-0.8 10 ^3/uL Basophils # (Auto) 0 0-0.2 10 ^3/uL Nucleated Red Blood Cells 0.4 % Sodium Level 138 136-145 mmol/L Potassium Level 5.0 3.5-5.1 mmol/L Chloride Level 97 L 98-107 mmol/L Carbon Dioxide Level 36 H 20-31 mmol/L Anion Gap 5 5-15 Blood Urea Nitrogen 18 9-23 mg/dL Creatinine 0.47 L 0.550-1.02 mg/dL Glomerular Filtration Rate Calc 94 >90 mL/min BUN/Creatinine Ratio 38.3 H 10.0-20.0 Serum Glucose 164 H 74-106 mg/dL Hemoglobin A1c 7.1 H <5.7 % A1C Calcium Level 8.7 8.7-10.4 mg/dL Total Bilirubin 0.6 0.2-1.0 mg/dL Aspartate Amino Transferase (AST) 20 13-40 U/L Alanine Aminotransferase (ALT) 27 7-40 U/L Alkaline Phosphatase 117 H 46-116 U/L C-Reactive Protein High Sensitivity 0.15 <1.0 mg/dL B-Type Natriuretic Peptide 507.30 0-100 pg/mL Total Protein 6.2 5.7-8.2 g/dL Albumin 4.3 3.2-4.8 g/dL Blood Gas Spontaneous Rate 20 Specimen Drawn By [facility] rt Test 12/05/24 20:28 12/05/24 19:47 12/05/24 00:00 Range/Units Troponin I High Sensitivity 43 *H </=34 ng/L Urine Color Light-yellow Yellow Urine Clarity Clear Clear Urine pH 6.0 5.0-9.0 Urine Specific [place] 1.013 1.001-1.035 Urine Protein Negative Negative Urine Ketones Negative Negative Urine Blood Negative Negative /uL Urine Nitrite Negative Negative Urine Bilirubin Negative Negative Urine Urobilinogen Normal Negative mg/dL Urine Leukocyte Esterase Negative Negative /uL Urine RBC <1 0 - 4 /hpf Urine Microscopic WBC 1 0-5 /HPF Urine Squamous Epithelial Cells Few <5 /hpf Urine Bacteria Few H None Seen /hpf Urine Glucose Normal Normal mg/dL SARS-CoV-2 Antigen (Rapid) Negative NEGATIVE Assessment Rule out structural heart disease Acute respiratory failure NSTEMI, likelly type II Hypertension Dyslipidemia Pneumonia Hyperkalemia COPD with home O2 use Type 2 diabetes mellitus Dementia Plan/Recommendation We will continue with the following plan/recommendations (Dr. Bhat): Case discussed with . We will proceed with obtaining a transthoracic echocardiogram to evaluate cardiac function. Continue diuretics as tolerated. Continue with close cardiac surveillance. Consider pulmonary evaluation. Thank you for allowing us to care for this patient. Please call with any questions or concerns. Critical care time spent: 44 minutes This medical document was created using an electronic medical record system with voice recognition software and computerized dictation system. Although this document has been carefully reviewed, there might still be some phonetic and typographical errors. Occasional wrong-word or ``sound-alike substitutions may have occurred due to the inherent limitations of voice recognition software. These areas are purely typographical due to imperfections of the software programs and do not reflect any compromise in the patient's medical care. Please read the chart carefully and recognize, using context, where these substitutions have occurred. Plan discussed with: Patient, Other (Bedside RN) NYHA 2 Physical activity limitations: NA Date of Service: Dec 06, 2024 Billing Provider: JOLENE QUINTANA Cardiology Common Codes: 64191-[id number] INP/OBS CARE (High) Cardiology Consultation Codes: [id number] CONSULT <45MIN JOLENE QUINTANA Dec 06, 2024 10:52
[2024-12-06] MEDS: LEVALBUTEROL HCL 1.25 MG/3 ML NEB NEB SCH ×2 (11:08→15:08)
[2024-12-06] MEDS: IPRATROPIUM BROM 0.5 MG/2.5ML INH SOL NEB PRN (11:08)
--- NOTE | 2024-12-06 11:16 | DVH ---
CLINICAL HISTORY: r/o PE, shortness of breath TECHNIQUE: CT angiogram of the chest was performed with intravenous contrast 3D MIP reconstructed i mages were created and archived on the PACS system. This exam was performed according to our [facility] dose optimization program. Up-to-date CT equipment and radiation dose reduction techniques are u tilized as appropriate. WID: COMPARISON: None FINDINGS: Lungs: Bilateral lower lobe and right middle lobe subtotal atelectasis.. Mild centrilobular emphysema .. Cardiac: Mitral annular and coronary artery calcium. Mild right atrial chamber enlargement. Vascular: Main pulmonary artery is enlarged measuring 38mm. No pulmonary emboli. Lower lobes limited evaluation secondary to motion artifact. Atherosclerotic calcification of the thoracic area which is normal in caliber. Lymph nodes: unremarkable Thoracic inlet: Subcentimeter right thyroid lobe nodule. Bones: Moderate degenerative changes of the right glenohumeral joint. No acute osseus abnormality. Th e bones are mildly demineralized. Upper Abdomen: Status post cholecystectomy. IMPRESSION: 1. Bilateral lower lobe and right middle lobe atelectasis 2. No pulmonary emboli 3. Centrilobular emphysema with enlargement of the pulmonary artery which can be seen with pulmonary hypertension 4. Mildly enlarged right atrium 5. Mitral annular and coronary calcium
[2024-12-06] MEDS ORDERED: BUDESONIDE (INHALATION) 0.5 MG/2 ML NEB NEB SCH (11:30)
[2024-12-06] MEDS ORDERED: IPRATROPIUM BROM 0.5 MG/2.5ML INH SOL NEB SCH (11:30)
[2024-12-06] MEDS ORDERED: LEVALBUTEROL HCL 1.25 MG/3 ML NEB NEB SCH (11:30)
[2024-12-06 12:07] LABS: Base Excess 2.7 mmol/L (-2.0-3.0)
[2024-12-06] MEDS: IPRATROPIUM BROM 0.5 MG/2.5ML INH SOL NEB SCH (15:07)
--- NOTE | 2024-12-06 15:40 | DVHPNRES ---
Progress Note Date Seen: Dec 06, 2024 Resident Creating Document: THOMAS WOODARD RESIDENT Medical Necessity Reason Pt with a Central, PICC or Fol: No Subjective Review of Systems Patient is a bleeding 4-year-old female with past medical history of asthma, COPD on home oxygen 2 L nasal cannula, prediabetes, hypertension, hyperlipidemia, and dementia, who presented to the ED with chief complaint of generalized weakness. History was derived via both of the patient's daughters, Seema and Tanya, who are historians. Per her daughters, patient has complained of back pain mainly affecting her left side, however are unable to describe characteristics of said pain. State the pain has affected her sleeping, and is associated with increased fatigue and anxiety. Additionally, state that patient has been less active and ambulating less since onset of symptoms. Per her daughters, they deny fever, chest pain, cough, shortness of breath, or other symptoms. On evaluation in the ED, she was found in moderate distress, tachycardic, and saturating 98% on 3L O2 NC. Initial labs show, CBC is within normal range, sodium 136, potassium 5.2, troponins were 40 trending to 44 and 43, and BNP 507.30. ABG pH 7.235, pCO2 83.1, O2 62.5, and HCO3 88.3. 12 lead EKG shows sinus tachycardia, with abnormal T wave, and borderline ST elevation. Chest xray shows cardiomegaly with questionable mild or early congestive changes. She was admitted for further work up and monitoring. Surgical: Cholecystectomy 5-6 years ago Social: Family denies previous drug, alcohol, or tobacco use. 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 Patient seen at bedside. Patient oriented in person, place, and time, however she is unable to answer questions pertaining to this current episode, patient also underlying dementia. Per her daughter at bedside, Seema, patient is more inactive and seems more confused than usual. Follow up CBC and chemical panel are within normal range. On initial evaluation, the patient was saturating 96% on 4L O2 NC, however, due to somnolent state, follow up ABG was ordered. This showed pH 7.19, pCO2 105.6, pO2 91, and HCO3 39.8. Patient was started on BIPAP, however, per RT she was only on BIPAP for 20 minutes when she began taking off the mask. She was kept on O2 3L NC, with follow ABG showing pH 7.22, pCO2 82.4, pO2 59.3, and HCO3 33. Wells score for this patient was calculated giving a 4.5, for which a CT angio was ordered showing bilateral lower lobe and right middle lobe atelectasis, no PE, centrilobular emphysema with enlarge of the pulmonary artery. Currently pending consult by cardiology and results of Echocardiogram. We will continue to monitor her, we have discussed with both daughters possibility of intubation due to their mother not tolerating BIPAP, both state that if that is required they agree. Review of Systems: Unable to evaluate due to patient's baseline. Objective vital signs Vital Sign Date Time Temp Pulse Resp B/P (MAP) Pulse Ox O2 Delivery O2 Flow Rate FiO2 12/06/24 15:06 94 Nasal Cannula 2.0 12/06/24 15:06 28 12/06/24 12:00 97.3 111 20 118/40 (66) 97.3 Total Intake and Output 12/05/24 12/05/24 12/06/24 15:00 23:00 07:00 Intake Total 500 ml Balance 500 ml medications Current Medications Medications Dose Ordered Sig/Barney Route Start Time Stop Time Status Last Admin Dose Admin Diagnostic Test (Pha) 1 strip Q6HR 12/06/24 00:00 12/06/24 12:15 1 STRIP Insulin Human Regular Q6HR SC 12/06/24 00:00 12/06/24 12:08 9 UNITS Dextrose 50 ml UD PRN IV 12/05/24 22:30 Azithromycin 250 ml @ 125 mls/hr DAILY IV 12/06/24 10:00 12/06/24 10:11 125 MLS/HR Enoxaparin Sodium 30 mg DAILY SC 12/06/24 10:00 12/06/24 10:11 30 MG Methylprednisolone Sodium Succinate 40 mg BID IV 12/05/24 23:00 12/06/24 10:16 40 MG Furosemide 20 mg DAILY IV 12/06/24 10:00 Cefepime HCl 50 ml @ 12.5 mls/hr Q8HR IV 12/06/24 14:00 Budesonide 0.5 mg BID NEB 12/06/24 22:00 Ipratropium [place] 0.5 mg Q4HR NEB 12/06/24 14:00 Levalbuterol HCl 1.25 mg Q4HR NEB 12/06/24 14:00 Examination General: Patient is somnolent, oriented in person, place, and time. Patient following commands HEENT: Normocephalic, atraumatic, EOM intact, dry mucous membrane Respiratory/pulmonary: Bilateral expansion, no pain on palpation, decreased bilateral air entry, no crackles or wheezes could not be appreciated due to decreased air entry. Abdomen: Obese, abdomen nondistended, normal bowel sounds, tympanic on percussion, soft, there is no pain to palpation in any of the abdominal quadrants, no palpable masses. Extremities: No deformities, no peripheral edema present at the lower extremities, pulses present Skin: No rashes or pruritus Neurological: Intact cranial nerves with no focal neurologic deficits laboratory and microbiology Laboratory Tests 12/06/24 04:55 Test 12/06/24 04:55 Range/Units Serum Glucose 164 H 74-106 mg/dL Problem List/Assessment/Plan Problem List/Assessment/Plan Assessment and Plan: Acute COPD Exacerbation -Chest Xray: cardiomegaly with questionable mild or early congestive changes -Ipratropium bromide 0.5 mg Neb q4 hr -Levalbuterol 1.25 mg Neb q4 hr -Solu Medrol 40 mg IV BID Possible PNA (gram positive/gram negative) -Cefepime 1g IV q8 hr -Azithromycin 500 mg IV daily -Blood cultures pending Acute on Chronic Hypercapnic Respiratory Failure -3L O2 NC -Not tolerating BiPAP Possible CHF -Pending Echocardiogram results -Furosemide 20 mg IV once -Furosemide 20 mg IV daily NSTEMI type 2 Hyperkalemia, resolved PE ruled out Prediabetes -Pending HbA1c Asthma Hypertension Hyperlipidemia Case discussed with Dr. Lang. Goals of care discussed with the patient's daughters Seema and Tanya for over 20 minutes. Her daughters were asked their wishes in the case intubation were to become necessary in her mother's care or if resuscitation efforts are needed to be made, both daughters state they will accept any and all efforts including intubation and FULL CODE. Plan discussed with: Patient, Daughter My Orders My Orders Orders - THOMAS WOODARD Procedure Category Date Status Time Abg W/ Co-Ox RT 12/06/24 Logged 08:54 BIPAP RT 12/06/24 Logged 09:33 Date of Service: Dec 06, 2024 Billing Provider: NICOLETTE LANG MD Common Visit Codes: [id number] INP/OBS CARE(HIGH) Secondary Visit Codes: [id number] CARE PLAN 30 MINUTES YAMILETORLANDO RESIDENT Dec 06, 2024 15:40 NICOLETTE LANG MD Dec 06, 2024 21:35
[2024-12-06] MEDS: CEFEPIME 1GM/ 50ML 50 ML IV SCH (16:00)
--- NOTE | 2024-12-06 18:15 | DVHINCON2 ---
Date of service: Dec 06, 2024 History of Present Illness This is a Greek-speaking 84-year-old female patient who presents to the emergency room with chief complaint of shortness of breath. At the time of ass essment, the patient is only alert to self and place. The patient is a very poor historian and unable to tell me why she is in the hospital. The patient's daughter at bedside and able to provide more history. History obtained from medical records as well as bedside RN and patient's daughter. Cardiology has been consulted at this time for acute CHF exacerbation. Initial twelve lead electrocardiogram reveals sinus rhythm with diffuse T-wave depression. Initial troponin level of 40ng/L with flat trend thereafter. BNP level of 507.30pg/mL. The patient denies any cardiac symptoms at time of assessment. Significant past medical history includes congestive heart failure, hypertension, dyslipidemia, COPD with home O2, previous tracheostomy with reversal, type 2 diabetes mellitus, and dementia. The patient's daughter reports that the patient was scheduled to see a roller maker for an initial visit tomorrow, but does not recall the name of the roller maker. Past Medical History Past Medical History Past medical history reviewed. No other significant than mentioned above. Past Surgical History Past Surgical History Tracheostomy with reversal Past Medical History reviewed Family History: Patient reports no known family medical history. Allergies: Coded Allergies: NO KNOWN ALLERGIES (Unverified , 05/30/21) Home Meds Reported Medications Furosemide (Furosemide) 20 Mg Tab, 1 TAB PO DAILY for 100 Days, #100 12/06/24 Current Medications Current Medications Medications (Trade) Dose Ordered Sig/Barney Route PRN Reason Start Time Stop Time Status Last Admin Diagnostic Test (Pha) (Accu-Chek Comfort Curve T) 1 strip Q6HR 12/06/24 00:00 12/06/24 12:15 Insulin Human Regular (InsuLIN R) Q6HR SC 12/06/24 00:00 12/06/24 12:08 Dextrose 50 ml UD PRN IV Blood Sugar LESS THAN 60 12/05/24 22:30 Azithromycin 250 ml @ 125 mls/hr DAILY IV 12/06/24 10:00 12/06/24 10:11 Enoxaparin Sodium (Lovenox) 30 mg DAILY SC 12/06/24 10:00 12/06/24 10:11 Methylprednisolone Sodium Succinate (Solu Medrol) 125 mg DAILY IV 12/06/24 10:00 12/05/24 22:55 DC Albuterol (Ventolin Medneb) 2.5 mg 6XD NEB 12/05/24 22:30 12/05/24 23:01 DC Ipratropium [place] (Atrovent Medneb) 0.5 mg Q4HP PRN NEB SHORTNESS OF BREATH 12/05/24 22:30 12/05/24 23:01 DC Methylprednisolone Sodium Succinate (Solu Medrol) 40 mg BID IV 12/05/24 23:00 12/06/24 10:16 Albuterol (Ventolin Medneb) 2.5 mg Q6HP PRN NEB Asthma 12/05/24 23:00 12/06/24 07:51 DC Ipratropium [place] (Atrovent Medneb) 0.5 mg Q6HP PRN NEB SHORTNESS OF BREATH 12/05/24 23:00 12/06/24 11:31 DC 12/06/24 11:08 Levalbuterol HCl (Xopenex Medneb) 1.25 mg Q6HR NEB 12/06/24 12:00 12/06/24 11:31 DC 12/06/24 11:08 Furosemide (Lasix Injection) 20 mg DAILY IV 12/06/24 10:00 Cefepime HCl 50 ml @ 12.5 mls/hr Q8HR IV 12/06/24 14:00 12/06/24 16:00 Ipratropium [place] (Atrovent Medneb) 0.5 mg Q4HR NEB 12/06/24 11:30 12/06/24 12:12 DC Levalbuterol HCl (Xopenex Medneb) 1.25 mg Q4HR NEB 12/06/24 11:30 12/06/24 12:12 DC Budesonide (Pulmicort) 0.5 mg BID NEB 12/06/24 11:30 12/06/24 12:12 DC Budesonide (Pulmicort) 0.5 mg BID NEB 12/06/24 22:00 Ipratropium [place] (Atrovent Medneb) 0.5 mg Q4HR NEB 12/06/24 14:00 Levalbuterol HCl (Xopenex Medneb) 1.25 mg Q4HR NEB 12/06/24 14:00 Review of Systems not obtained Vital Signs Vital Signs Date Time Temp Pulse Resp B/P (MAP) Pulse Ox O2 Delivery O2 Flow Rate FiO2 12/06/24 16:00 97.6 82 22 127/64 (85) 89 97.6 12/06/24 15:06 Nasal Cannula 2.0 12/06/24 15:06 28 Physical Exam pt seen with RN NAD s1 s2 rrr diffuse rhonchi abd obeseity Labs/Diagnostic Data Labs Test 12/06/24 12:03 12/06/24 06:05 12/06/24 04:55 12/05/24 23:09 Range/Units Blood Gas Specimen Type Arterial Blood Gas Sample Site Left radial Blood Gas Patient Temperature 37.0 Arterial Blood Date Drawn [id number] Arterial Blood pH 7.221 *L 7.350-7.450 Arterial Blood Partial Pressure CO2 82.4 *H 32.0-45.0 mmHg Arterial Blood Partial Pressure O2 59.3 L 83.0-108.0 mmHg Arterial Blood HCO3 33.0 H 21.0-28.0 mmol/L Arterial Blood Oxygen Saturation 86.7 L 94.0-98.0 % Arterial Blood Base Excess 2.7 -2.0-3.0 mmol/L Arterial Blood Oxyhemoglobin 84.8 L 94.0-98.0 % Arterial Blood Carboxyhemoglobin 1.5 0.5-1.5 % Arterial Blood Methemoglobin 0.7 0.0-1.5 % Rosalio Test Yes Blood Gas Total Hemoglobin 13.80 12.0-16.0 g/dL Blood Gas Liter Flow 2.00 Blood Gas Modality Nasal cannula FiO2 % 28.0 Blood Gas Critical Value Read Back yes Blood Gas Notified Whom trang del valle md Blood Gas Notified Time [id number] Blood Gas Notified By oksana vinson rrt Influenza Type A Antigen Negative Negative Influenza Type B Antigen Negative Negative White Blood Count 8.5 4.4-10.8 10^3/uL Red Blood Count 5.72 H 4.0-5.20 10^6/uL Hemoglobin 12.8 12.2-16.2 g/dL Hematocrit 41.7 36.0-46.0 % Mean Corpuscular Volume 72.8 L 80.0-100.0 fL Mean Corpuscular Hemoglobin 22.4 L 28.0-32.0 pg Mean Corpuscular Hemoglobin Concent 30.8 L 32.0-36.0 g/dL Red Cell Distribution Width 20.5 H 11.8-14.3 % Platelet Count 257 140-450 10^3/uL Mean Platelet Volume 8.3 6.9-10.8 fL Neutrophils (%) (Auto) 94.3 H 37.0-80.0 % Lymphocytes (%) (Auto) 4.6 L 10.0-50.0 % Monocytes (%) (Auto) 1.1 0.0-12.0 % Eosinophils (%) (Auto) 0.0 0.0-7.0 % Basophils (%) (Auto) 0.0 0.0-2.0 % Neutrophils # (Auto) 8.0 1.6-8.6 10 ^3/uL Lymphocytes # (Auto) 0.4 0.4-5.4 10 ^3/uL Monocytes # (Auto) 0.1 0-1.3 10 ^3/uL Eosinophils # (Auto) 0 0-0.8 10 ^3/uL Basophils # (Auto) 0 0-0.2 10 ^3/uL Nucleated Red Blood Cells 0.4 % Sodium Level 138 136-145 mmol/L Potassium Level 5.0 3.5-5.1 mmol/L Chloride Level 97 L 98-107 mmol/L Carbon Dioxide Level 36 H 20-31 mmol/L Anion Gap 5 5-15 Blood Urea Nitrogen 18 9-23 mg/dL Creatinine 0.47 L 0.550-1.02 mg/dL Glomerular Filtration Rate Calc 94 >90 mL/min BUN/Creatinine Ratio 38.3 H 10.0-20.0 Serum Glucose 164 H 74-106 mg/dL Hemoglobin A1c 7.1 H <5.7 % A1C Calcium Level 8.7 8.7-10.4 mg/dL Total Bilirubin 0.6 0.2-1.0 mg/dL Aspartate Amino Transferase (AST) 20 13-40 U/L Alanine Aminotransferase (ALT) 27 7-40 U/L Alkaline Phosphatase 117 H 46-116 U/L C-Reactive Protein High Sensitivity 0.15 <1.0 mg/dL B-Type Natriuretic Peptide 507.30 0-100 pg/mL Total Protein 6.2 5.7-8.2 g/dL Albumin 4.3 3.2-4.8 g/dL Blood Gas Spontaneous Rate 20 Specimen Drawn By [facility] rt Test 12/05/24 20:28 12/05/24 19:47 12/05/24 00:00 Range/Units Troponin I High Sensitivity 43 *H </=34 ng/L Urine Color Light-yellow Yellow Urine Clarity Clear Clear Urine pH 6.0 5.0-9.0 Urine Specific [place] 1.013 1.001-1.035 Urine Protein Negative Negative Urine Ketones Negative Negative Urine Blood Negative Negative /uL Urine Nitrite Negative Negative Urine Bilirubin Negative Negative Urine Urobilinogen Normal Negative mg/dL Urine Leukocyte Esterase Negative Negative /uL Urine RBC <1 0 - 4 /hpf Urine Microscopic WBC 1 0-5 /HPF Urine Squamous Epithelial Cells Few <5 /hpf Urine Bacteria Few H None Seen /hpf Urine Glucose Normal Normal mg/dL SARS-CoV-2 Antigen (Rapid) Negative NEGATIVE Assessment r/o chf severe hypercapneia dementia co2 retention acidemia Plan/Recommendation prn lasix bipap but pt not compliant i spoke to primary service, worried pt may decompensate or code/ consider pulm consult pt is quite stable now and drinking liquids prn diuretic SR on tele high risk pt for decompensation 40 mins critical care time spent Plan discussed with: Patient SERENA FORD MD Dec 06, 2024 18:15
[2024-12-06] MEDS: BUDESONIDE (INHALATION) 0.5 MG/2 ML NEB NEB SCH (22:30)
--- NOTE | 2024-12-06 22:46 | DVHINCON2 ---
Date of service: Dec 06, [address] Del Valle Reason for Consultation Acute on chronic hypercarbic respiratory failure, COPD exacerbation, emphysema and pneumonia History of Present Illness An 84-year-old woman with past medical history of COPD (on home oxygen 2 L), asthma, hypertension DM type 2, hyperlipidemia, CHF and recurrent pneumonia (last episode 2 months ago) who presented to the ED on 12/05/24 with complaints of generalized weakness, fatigue, shortness of breath and bilateral leg swelling. Per EMS, patient had low SpO2 of 77%. Workup in ED included ABG showing pH of 7.23 and PCO2 83.1; patient was placed on O2 at 4 L, sats improving to 93%. BG of 165. Patient denied fever, chills, chest pain, or other acute complaints. Patient was admitted for further care, and pulmonary consultation is requested for evaluation and management of acute on chronic hypercarbic respiratory failure, COPD exacerbation, emphysema and pneumonia. Review of Systems: 14-point review of systems negative unless otherwise noted above. Past Medical History: COPD (home oxygen 2 L), asthma, hypertension, DM type 2, hyperlipidemia, CHF and recurrent pneumonia. Past Surgical History: Cholecystectomy Medications: Reviewed. Allergies: No known drug allergies. Family History: No family history of premature CAD. No family history of lung disorders. Social History: Nonsmoker. No alcohol or illicit drug use. Family History: Patient reports no known family medical history. Allergies: Coded Allergies: NO KNOWN ALLERGIES (Unverified , 05/30/21) Home Meds Reported Medications Furosemide (Furosemide) 20 Mg Tab, 1 TAB PO DAILY for 100 Days, #100 12/06/24 Current Medications Current Medications Medications (Trade) Dose Ordered Sig/Barney Route PRN Reason Start Time Stop Time Status Last Admin Diagnostic Test (Pha) (Accu-Chek Comfort Curve T) 1 strip Q6HR 12/06/24 00:00 12/06/24 18:19 Insulin Human Regular (InsuLIN R) Q6HR SC 12/06/24 00:00 12/06/24 18:19 Azithromycin 250 ml @ 125 mls/hr DAILY IV 12/06/24 10:00 12/06/24 10:11 Enoxaparin Sodium (Lovenox) 30 mg DAILY SC 12/06/24 10:00 12/06/24 10:11 Methylprednisolone Sodium Succinate (Solu Medrol) 125 mg DAILY IV 12/06/24 10:00 12/05/24 22:55 DC Methylprednisolone Sodium Succinate (Solu Medrol) 40 mg BID IV 12/05/24 23:00 12/06/24 10:16 Albuterol (Ventolin Medneb) 2.5 mg Q6HP PRN NEB Asthma 12/05/24 23:00 12/06/24 07:51 DC Ipratropium [place] (Atrovent Medneb) 0.5 mg Q6HP PRN NEB SHORTNESS OF BREATH 12/05/24 23:00 12/06/24 11:31 DC 12/06/24 11:08 Levalbuterol HCl (Xopenex Medneb) 1.25 mg Q6HR NEB 12/06/24 12:00 12/06/24 11:31 DC 12/06/24 11:08 Furosemide (Lasix Injection) 20 mg DAILY IV 12/06/24 10:00 Cefepime HCl 50 ml @ 12.5 mls/hr Q8HR IV 12/06/24 14:00 12/06/24 16:00 Ipratropium [place] (Atrovent Medneb) 0.5 mg Q4HR NEB 12/06/24 11:30 12/06/24 12:12 DC Levalbuterol HCl (Xopenex Medneb) 1.25 mg Q4HR NEB 12/06/24 11:30 12/06/24 12:12 DC Budesonide (Pulmicort) 0.5 mg BID NEB 12/06/24 11:30 12/06/24 12:12 DC Budesonide (Pulmicort) 0.5 mg BID NEB 12/06/24 22:00 Ipratropium [place] (Atrovent Medneb) 0.5 mg Q4HR NEB 12/06/24 14:00 12/06/24 18:56 Levalbuterol HCl (Xopenex Medneb) 1.25 mg Q4HR NEB 12/06/24 14:00 12/06/24 18:56 Vital Signs Vital Signs Date Time Temp Pulse Resp B/P (MAP) Pulse Ox O2 Delivery O2 Flow Rate FiO2 12/06/24 19:04 89 25 100 12/06/24 18:56 Nasal Cannula 2.0 12/06/24 18:56 28 12/06/24 16:00 97.6 127/64 (85) 97.6 Physical Exam Gen.: Patient lying in bed in no apparent distress. On supplemental oxygen. Head: Normocephalic, atraumatic. Eyes: EOMI/PERRLA. Ears: Normal hearing. Normal anatomy. Neck/trachea: Trachea midline, supple. Nose: Normal external anatomy. Mouth: Moist mucous membranes. Chest: Decreased air entry bilaterally. No wheezing or rhonchi. Cardiovascular: Positive S1, positive S2. Regular rate and rhythm. Abdomen: Positive bowel sounds in all 4 quadrants. Soft, non-tender, non-d istended. : Deferred. Rectal: Deferred. Skin: Warm, dry. Intact. Extremities: 2+ radial pulses bilaterally. No lower extremity edema. Neuro: Awake, alert, oriented x3. No gross motor or sensory deficits. Cranial nerves II through XII intact. Gait not assessed. Labs/Diagnostic Data Labs Test 12/06/24 18:08 12/06/24 12:03 12/06/24 06:05 12/06/24 04:55 Range/Units POC Glucose 252 H 70-106 mg/dl Blood Gas Specimen Type Arterial Blood Gas Sample Site Left radial Blood Gas Patient Temperature 37.0 Arterial Blood Date Drawn [id number] Arterial Blood pH 7.221 *L 7.350-7.450 Arterial Blood Partial Pressure CO2 82.4 *H 32.0-45.0 mmHg Arterial Blood Partial Pressure O2 59.3 L 83.0-108.0 mmHg Arterial Blood HCO3 33.0 H 21.0-28.0 mmol/L Arterial Blood Oxygen Saturation 86.7 L 94.0-98.0 % Arterial Blood Base Excess 2.7 -2.0-3.0 mmol/L Arterial Blood Oxyhemoglobin 84.8 L 94.0-98.0 % Arterial Blood Carboxyhemoglobin 1.5 0.5-1.5 % Arterial Blood Methemoglobin 0.7 0.0-1.5 % Rosalio Test Yes Blood Gas Total Hemoglobin 13.80 12.0-16.0 g/dL Blood Gas Liter Flow 2.00 Blood Gas Modality Nasal cannula FiO2 % 28.0 Blood Gas Critical Value Read Back yes Blood Gas Notified Whom trang del valle md Blood Gas Notified Time [id number] Blood Gas Notified By l. karel cleaning laborer Influenza Type A Antigen Negative Negative Influenza Type B Antigen Negative Negative White Blood Count 8.5 4.4-10.8 10^3/uL Red Blood Count 5.72 H 4.0-5.20 10^6/uL Hemoglobin 12.8 12.2-16.2 g/dL Hematocrit 41.7 36.0-46.0 % Mean Corpuscular Volume 72.8 L 80.0-100.0 fL Mean Corpuscular Hemoglobin 22.4 L 28.0-32.0 pg Mean Corpuscular Hemoglobin Concent 30.8 L 32.0-36.0 g/dL Red Cell Distribution Width 20.5 H 11.8-14.3 % Platelet Count 257 140-450 10^3/uL Mean Platelet Volume 8.3 6.9-10.8 fL Neutrophils (%) (Auto) 94.3 H 37.0-80.0 % Lymphocytes (%) (Auto) 4.6 L 10.0-50.0 % Monocytes (%) (Auto) 1.1 0.0-12.0 % Eosinophils (%) (Auto) 0.0 0.0-7.0 % Basophils (%) (Auto) 0.0 0.0-2.0 % Neutrophils # (Auto) 8.0 1.6-8.6 10 ^3/uL Lymphocytes # (Auto) 0.4 0.4-5.4 10 ^3/uL Monocytes # (Auto) 0.1 0-1.3 10 ^3/uL Eosinophils # (Auto) 0 0-0.8 10 ^3/uL Basophils # (Auto) 0 0-0.2 10 ^3/uL Nucleated Red Blood Cells 0.4 % Sodium Level 138 136-145 mmol/L Potassium Level 5.0 3.5-5.1 mmol/L Chloride Level 97 L 98-107 mmol/L Carbon Dioxide Level 36 H 20-31 mmol/L Anion Gap 5 5-15 Blood Urea Nitrogen 18 9-23 mg/dL Creatinine 0.47 L 0.550-1.02 mg/dL Glomerular Filtration Rate Calc 94 >90 mL/min BUN/Creatinine Ratio 38.3 H 10.0-20.0 Serum Glucose 164 H 74-106 mg/dL Hemoglobin A1c 7.1 H <5.7 % A1C Calcium Level 8.7 8.7-10.4 mg/dL Total Bilirubin 0.6 0.2-1.0 mg/dL Aspartate Amino Transferase (AST) 20 13-40 U/L Alanine Aminotransferase (ALT) 27 7-40 U/L Alkaline Phosphatase 117 H 46-116 U/L C-Reactive Protein High Sensitivity 0.15 <1.0 mg/dL B-Type Natriuretic Peptide 507.30 0-100 pg/mL Total Protein 6.2 5.7-8.2 g/dL Albumin 4.3 3.2-4.8 g/dL Test 12/05/24 23:09 12/05/24 20:28 12/05/24 19:47 12/05/24 00:00 Range/Units Blood Gas Spontaneous Rate 20 [facility] Troponin I High Sensitivity 43 *H </=34 ng/L Urine Color Light-yellow Yellow Urine Clarity Clear Clear Urine pH 6.0 5.0-9.0 Urine Specific [place] 1.013 1.001-1.035 Urine Protein Negative Negative Urine Ketones Negative Negative Urine Blood Negative Negative /uL Urine Nitrite Negative Negative Urine Bilirubin Negative Negative Urine Urobilinogen Normal Negative mg/dL Urine Leukocyte Esterase Negative Negative /uL Urine RBC <1 0 - 4 /hpf Urine Microscopic WBC 1 0-5 /HPF Urine Squamous Epithelial Cells Few <5 /hpf Urine Bacteria Few H None Seen /hpf Urine Glucose Normal Normal mg/dL SARS-CoV-2 Antigen (Rapid) Negative NEGATIVE Assessment Impression: Acute on chronic hypercarbic respiratory failure Dependence on supplemental oxygen Acute on chronic CHF exacerbation NSTEMI type 2 Asthma Emphysema Enlarged pulmonary trunk Pneumonia Atelectasis Plan: Supplemental oxygen Currently on 2 LPM NC Titrate to keep O2 sats between 88-94% due to CO2 retention. Taper O2 as tolerated. BiPAP started with improved ventilation - pCO2 of 82.4 mmHg ABG notable for chronic hypercarbia w/metabolic compensation. CTA chest reviewed; no pulmonary emboli. Bilateral lower lobe and right middle lobe atelectasis. Centrilobular emphysema with enlargement of pulmonary artery, which can be seen with pulmonary hypertension Mildly enlarged right atrium. Mitral annular and coronary calcium. Pt with hx of using wood-burning stove. Continue bronchodilators Continue steroids. Continue antibiotics Incentive spirometry Follow up Cardiology recommendations Monitor renal function. Monitor electrolytes. Supplement as necessary. Monitor ins and outs. DVT prophylaxis. Prognosis: Poor given patient's multiple co-morbidities. Rest of plan per hospitalist and other consultants. Thank you, Dr. Del Valle, for allowing me to participate in this patient's care. Further recommendations will depend on the patient's clinical course. Please do not hesitate to contact me if you have any questions or concerns. This medical document was created using an electronic medical record system with [employer] dictation system. Although these documentations are being carefully reviewed, there may still be some phonetic and typographical changes. The errors are purely typographical, due to imperfection on the software program, and do not reflect any compromise in the patient's medical care. Plan discussed with: Patient, Daughter, Other (MILTON Lopez/) EMILY SEYMOUR MD Dec 06, 2024 22:46
[2024-12-07] VITALS (17 sets, daily range): BP systolic 107–122; BP diastolic 54–61; PULSE 71–92; RESP 18–25; TEMP 98.1–98.2; O2SAT 90–100
[2024-12-07 06:32] LABS: Hematocrit 38.7 % (36.0-46.0); Hemoglobin 11.9 g/dL (12.2-16.2); Mean Corpuscular Hemoglobin 22.3 pg (28.0-32.0); Mean Corpuscular Volume 72.7 fL (80.0-100.0); Nucleated Red Blood Cells % 0.1 %
[2024-12-07 06:33] LABS: Sodium 137 mmol/L (136-145)
[2024-12-07 06:34] LABS: Anion Gap 5 (5-15); Calcium 9.3 mg/dL (8.7-10.4)
[2024-12-07 06:39] LABS: BUN/Creatinine Ratio 34.6 (10.0-20.0); Blood Urea Nitrogen 18 mg/dL (9-23)
[2024-12-07 06:46] LABS: Potassium 5.6 mmol/L (3.5-5.1)
[2024-12-07 06:47] LABS: Carbon Dioxide 35 mmol/L (20-31); Chloride 97 mmol/L (98-107); Glucose 187 mg/dL (74-106)
[2024-12-07] MEDS: SODIUM ZIRCONIUM CYCL 10 GM PAK PO ONE (09:53)
[2024-12-07] MEDS: PANTOPRAZOLE 40 MG/10 ML VIAL INJ IV SCH (09:53)
[2024-12-07] MEDS: InsuLIN REG 1unit/0.01ml Soln (100units/ml) IV ONE (09:55)
[2024-12-07] MEDS: FUROSEMIDE 20 MG/2 ML VIAL IV ONE (10:21)
--- NOTE | 2024-12-07 14:21 | DVHPNRES ---
Progress Note Date Seen: Dec 07, 2024 Resident Creating Document: THOMAS WOODARD RESIDENT Medical Necessity Reason Pt with a Central, PICC or Fol: No Subjective Review of Systems Patient is a 84-year-old female with past medical history of asthma, COPD on home oxygen 2 L nasal cannula, prediabetes, hypertension, hyperlipidemia, CHF, recurrent pneumonia, and dementia, who presented to the ED with chief complaint of generalized weakness. History was derived via both of the patient's daughters, Seema and Tanya, who are historians. Per her daughters, patient has complained of back pain mainly affecting her left side, however are unable to describe characteristics of said pain. State the pain has affected her sleeping, and is associated with increased fatigue and anxiety. Additionally, state that patient has been less active and ambulating less since onset of symptoms. Per her daughters, they deny fever, chest pain, cough, shortness of breath, or other symptoms. On evaluation in the ED, she was found in moderate distress, tachycardic, and saturating 98% on 3L O2 NC. Initial labs show, CBC is within normal range, sodium 136, potassium 5.2, troponins were 40 trending to 44 and 43, and BNP 507.30. ABG pH 7.235, pCO2 83.1, O2 62.5, and HCO3 88.3. 12 lead EKG shows sinus tachycardia, with abnormal T wave, and borderline ST elevation. Chest xray shows cardiomegaly with questionable mild or early congestive changes. She was admitted for further work up and monitoring. On evaluation, patient was found to be somnolent. Follow up ABG was showed pH 7.19, pCO2 105.6, pO2 91, and HCO3 39.8. Patient was started on BIPAP, however, per RT she only tolerated BiPAP for 20 minutes. She was subsequently placed on 3L O2 on NC, with some improvement in blood gases. Wells score for this patient was calculated giving a 4.5, for which a CT angio was ordered showing bilateral lower lobe and right middle lobe atelectasis, no PE, centrilobular emphysema with enlarge of the pulmonary artery. Patient seen at bedside. Patient is more alert, oriented in person, place, and time, still with some underlying disorientation due to baseline dementia. Per the nurse, patient had to be given trazodone in order for her to sleep, however there were no adverse events over night. Early this morning, labs showed potassium of 5.6, patient was immediately placed on lokelma, Lasix, and insulin. Patient remained slightly tachypneic, but has been stably saturating within acceptable range. She was seen by who had recommended BiPAP, diuretics as needed, and pulmonology consult. Pulmonology recommends continued use of bronchodilators, steroids, antibiotics, incentive spirometry, and supplemental oxygen with aims to keep saturation between 88-94%. Oxygen was titrated down to 2L. Results of echocardiogram pending. We will continue to monitor. Objective vital signs Vital Sign Date Time Temp Pulse Resp B/P (MAP) Pulse Ox O2 Delivery O2 Flow Rate FiO2 12/07/24 12:00 97.9 80 12 95/61 (72) 84 97.9 12/07/24 08:00 Nasal Cannula* 2 28 Total Intake and Output 12/06/24 12/06/24 12/07/24 15:00 23:00 07:00 Intake Total 250 ml Balance 250 ml medications Current Medications Medications Dose Ordered Sig/Barney Route Start Time Stop Time Status Last Admin Dose Admin Diagnostic Test (Pha) 1 strip Q6HR 12/06/24 00:00 12/07/24 12:08 1 STRIP Insulin Human Regular Q6HR SC 12/06/24 00:00 12/07/24 12:11 2 UNITS Dextrose 50 ml UD PRN IV 12/05/24 22:30 Azithromycin 250 ml @ 125 mls/hr DAILY IV 12/06/24 10:00 12/07/24 10:36 125 MLS/HR Enoxaparin Sodium 30 mg DAILY SC 12/06/24 10:00 12/07/24 09:56 30 MG Methylprednisolone Sodium Succinate 40 mg BID IV 12/05/24 23:00 12/07/24 09:53 40 MG Furosemide 20 mg DAILY IV 12/06/24 10:00 Cefepime HCl 50 ml @ 12.5 mls/hr Q8HR IV 12/06/24 14:00 12/07/24 06:11 12.5 MLS/HR Budesonide 0.5 mg BID NEB 12/06/24 22:00 12/07/24 10:27 0.5 MG Ipratropium [place] 0.5 mg Q4HR NEB 12/06/24 14:00 12/07/24 10:27 0.5 MG Levalbuterol HCl 1.25 mg Q4HR NEB 12/06/24 14:00 12/07/24 10:27 1.25 MG Pantoprazole Sodium 40 mg DAILY IV 12/07/24 10:00 12/07/24 09:53 40 MG Examination General: Patient is somnolent, oriented in person, place, and time. Patient following commands HEENT: Normocephalic, atraumatic, EOM intact, dry mucous membrane Respiratory/pulmonary: Bilateral expansion, no pain on palpation, decreased bilateral air entry however improved from previous examination, no crackles or wheezes could not be appreciated at this time. Abdomen: Obese, abdomen nondistended, normal bowel sounds, tympanic on percussion, soft, there is no pain to palpation in any of the abdominal quadrants, no palpable masses. Extremities: No deformities, no peripheral edema present at the lower extremities, pulses present Skin: No rashes or pruritus Neurological: Intact cranial nerves with no focal neurologic deficits laboratory and microbiology Laboratory Tests 12/07/24 05:39 Test 12/07/24 05:39 Range/Units Serum Glucose 187 H 74-106 mg/dL Microbiology Date/Time Source Procedure Growth Status 12/06/24 00:05 Blood Blood Culture - Preliminary NO GROWTH AFTER 24 HOURS OF INCUBATION. Resulted Problem List/Assessment/Plan Problem List/Assessment/Plan Assessment and Plan: Acute COPD Exacerbation -Chest Xray: cardiomegaly with questionable mild or early congestive changes -Ipratropium bromide 0.5 mg Neb q4 hr -Levalbuterol 1.25 mg Neb q4 hr -Solu Medrol 40 mg IV BID - budesonide b.i.d. Acute on Chronic Hypercapnic Respiratory Failure -2L O2 NC -Not tolerating BiPAP -Per Pulmonology: Continue bronchodilators, steroids, antibiotics, incentive spirometry, supplemental oxygen, and keep O2 stats between 88-94%. Centrilobular Emphysema -CT Angio: Centrilobular emphysema with enlargement of the pulmonary artery which can be seen with pulmonary hypertension Atelectasis -CT angio: Bilateral lower lobe and right middle lobe atelectasis Possible PNA (gram positive/gram negative) -Cefepime 1g IV q8 hr -Azithromycin 500 mg IV daily -Blood cultures: Preliminary: No growth after 24 hours of incubation Possible Acute on Chronic CHF exacerbation -Pending Echocardiogram results -Furosemide 20 mg IV once -Furosemide 20 mg IV daily -Per cardiology: recommend BIPAP, [place] Lasix, patient is considered high risk for decompensation NSTEMI type 2 -Watch troponins Hyperkalemia, resolved -Lokelma 10 mg PO once -Furosemide 20 mg IV once -Regular insulin 10 U + dextrose once PE ruled out -CT angio: No pulmonary emboli Type 2 Diabetes Mellitus, HbA1c: 7.1 Asthma Hypertension Hyperlipidemia Case discussed with Dr. Lang. Goals of care discussed with the patient's daughters Seema and Tanya for over 20 minutes. FULL CODE. Plan discussed with: Patient My Orders My Orders Orders - THOMAS WOODARD RESIDENT Procedure Category Date Status Time Basic Metabolic Panel LAB 12/07/24 Logged 13:54 Date of Service: Dec 07, 2024 Billing Provider: NICOLETTE LANG MD Common Visit Codes: [id number] INP/OBS CARE(HIGH) THOMAS WOODARD RESIDENT Dec 07, 2024 14:21 RADHA MCGUIRE RESIDENT Dec 07, 2024 14:37 NICOLETTE LANG MD Dec 07, 2024 19:31
[2024-12-07 15:24] LABS: Potassium 4.2 mmol/L (3.5-5.1); Sodium 139 mmol/L (136-145)
[2024-12-07 15:25] LABS: Anion Gap 5 (5-15); Calcium 9.3 mg/dL (8.7-10.4)
[2024-12-07 15:30] LABS: BUN/Creatinine Ratio 29.0 (10.0-20.0); Blood Urea Nitrogen 20 mg/dL (9-23); Carbon Dioxide 39 mmol/L (20-31); Chloride 95 mmol/L (98-107); Glucose 241 mg/dL (74-106)
[2024-12-07] MEDS ORDERED: DEXTROSE (50%) 50ML SYRG IV PRN (15:45)
[2024-12-07] MEDS: ACCU-CHEK COMFORT CURVE STRIP VI SCH (16:56)
[2024-12-07] MEDS: InsuLIN REG 1unit/0.01ml Soln (100units/ml) SC SCH (17:14)
--- NOTE | 2024-12-07 19:35 | DVHSR ---
APPROVED REPORT EXAM: Two-dimensional and M-mode echocardiogram with Doppler and color Doppler. Blood Pressure: 125/58 mmHg INDICATION shortness of breath RISK FACTORS Height: 5'3, Weight: 160 DIMENSIONS LVDd4.4 (3.8-5.7cm)LA (2D)3.6 (1.9-4.0cm)Aortic Root3.0 (2.0-3.7cm) LVDs2.9 (2.5-4.0cm)LA (MM) (1.9-4.0cm)Aortic Cusp Exc1.6 (1.5-2.0cm) EF (%) 60.0 (55-70%)Rt. Atrium4.5 (1.9-4.0cm)Asc. Aorta3.3 cm IVSd1.0 (0.7-1.1cm)RV (D) (1.8-2.4cm) PWd0.8 (0.7-1.1cm) Mitral Valve MitralMitral Stenosis E wave0.93m/sMV Mean GR.mmHg A wave1.49m/sMV Peak GR.mmHg E/A ratio0.62D MVAcm2 DECEL [id number] 1/2 Timems Aortic Valve Aortic ValveAortic Stenosis V11.45m/Ronda Mean GR.8mmHg V21.85m/Ronda Peak GR.14mmHg LVOT Diameter2.2 (1.8-2.4cm)Doppler AVA2.98cm2 Pulmonic Valve V21.01m/s Tricuspid Valve TR Velocity3.65m/s [id number] Conclusion Technically good study. Sinus rhythm. Biatrial enlargement, mild concentric LVH. Mild aortic root enlargement Mild aortic sclerosis, mild mitral annular calcification. Left ventricular systolic performance is preserved at 60% with normal RV function. There is doming o f the interventricular septum in systole and diastole consistent with a pressure/volume overload and pulmonary hypertension. Severe tricuspid regurgitation with a pulmonary artery systolic pressure of 70 mmHg consistent with s evere pulmonary hypertension No pericardial effusion, masses or vegetations.
--- NOTE | 2024-12-07 23:23 | DVHPN2 ---
Progress Note - Dictate Date Seen: Dec 07, 2024 Medical Necessity Reason Pt with a Central, PICC or Fol: Yes The following are medically ne: Ascencio Catheter Reason for ascencio catheter: Strict I&O Subjective Patient seen and examined at bedside. Remains on supplemental oxygen Overnight events reviewed. vital signs Vital Sign Date Time Temp Pulse Resp B/P (MAP) Pulse Ox O2 Delivery O2 Flow Rate FiO2 12/07/24 21:30 77 18 99 12/07/24 21:15 Nasal Cannula 3.0 12/07/24 21:15 32 12/07/24 21:00 98.2 122/61 (81) 98.2 Total Intake and Output 12/06/24 12/06/24 12/07/24 15:00 23:00 07:00 Intake Total 250 ml Balance 250 ml medications Current Medications Medications Dose Ordered Sig/[place]rey Route Start Time Stop Time Status Last Admin Dose Admin Azithromycin 250 ml @ 125 mls/hr DAILY IV 12/06/24 10:00 12/07/24 10:36 125 MLS/HR Enoxaparin Sodium 30 mg DAILY SC 12/06/24 10:00 12/07/24 09:56 30 MG Methylprednisolone Sodium Succinate 40 mg BID IV 12/05/24 23:00 12/07/24 20:45 40 MG Furosemide 20 mg DAILY IV 12/06/24 10:00 Cefepime HCl 50 ml @ 12.5 mls/hr Q8HR IV 12/06/24 14:00 12/07/24 20:44 12.5 MLS/HR Budesonide 0.5 mg BID NEB 12/06/24 22:00 12/07/24 21:31 0.5 MG Ipratropium [place] 0.5 mg Q4HR NEB 12/06/24 14:00 12/07/24 21:31 0.5 MG Levalbuterol HCl 1.25 mg Q4HR NEB 12/06/24 14:00 12/07/24 21:31 1.25 MG Pantoprazole Sodium 40 mg DAILY IV 12/07/24 10:00 12/07/24 09:53 40 MG Diagnostic Test (Pha) 1 strip IQ4HR 12/07/24 16:00 12/07/24 20:00 1 STRIP Insulin Human Regular IQ4HR SC 12/07/24 16:00 12/07/24 20:44 6 UNITS Dextrose 50 ml UD PRN IV 12/07/24 15:45 objective Gen.: Patient lying in bed in no apparent distress. On supplemental oxygen. Head: Normocephalic, atraumatic. Eyes: EOMI/PERRLA. Ears: Normal hearing. Normal anatomy. Neck/trachea: Trachea midline, supple. Nose: Normal external anatomy. Mouth: Moist mucous membranes. Chest: Decreased air entry bilaterally. No wheezing or rhonchi. Cardiovascular: Positive S1, positive S2. Regular rate and rhythm. Abdomen: Positive bowel sounds in all 4 quadrants. Soft, non-tender, non- distended. : Deferred. Rectal: Deferred. Skin: Warm, dry. Intact. Extremities: 2+ radial pulses bilaterally. No lower extremity edema. Neuro: Awake, alert, oriented x3. No gross motor or sensory deficits. Cranial nerves II through XII intact. Gait not assessed. laboratory and microbiology Laboratory Tests 12/07/24 14:34 12/07/24 05:39 Test 12/07/24 14:34 Range/Units Serum Glucose 241 H 74-106 mg/dL Assessment/Plan Impression: Acute on chronic hypercarbic respiratory failure Dependence on supplemental oxygen Acute on chronic CHF exacerbation NSTEMI type 2 Asthma Emphysema Enlarged pulmonary trunk Pneumonia Atelectasis Events: Remains on supplemental oxygen, 2 LPM NC Taper O2 as tolerated Continue bronchodilators Continue IV steroids Continue antibiotics Incentive spirometry Diurese w/ Lasix as tolerated Monitor renal function. Monitor electrolytes. Supplement as necessary. DVT prophylaxis with Lovenox SC Updated family at bedside. Labs and imaging reviewed. Rest of plan as noted below. Plan: Supplemental oxygen Titrate to keep O2 sats between 88-94% due to CO2 retention. Taper O2 as tolerated. BiPAP PRN ABG on 12/06 showing chronic hypercarbia w/metabolic compensation- pCO2 of 82.4 mmHg. CTA chest reviewed; no pulmonary emboli. Bilateral lower lobe and right middle lobe atelectasis. Centrilobular emphysema with enlargement of pulmonary artery, which can be seen with pulmonary hypertension Mildly enlarged right atrium. Mitral annular and coronary calcium. Pt with hx of using wood-burning stove. Bronchodilators Steroids. Continue antibiotics Incentive spirometry Follow up Cardiology recommendations Diurese to euvolemia Monitor renal function. Monitor electrolytes. Supplement as necessary. Monitor ins and outs. DVT prophylaxis. Prognosis: Guarded given patient's multiple co-morbidities. Rest of plan per hospitalist and other consultants. Thank you, Dr. Rodas, for allowing me to participate in this patient's care. Further recommendations will depend on the patient's clinical course. Please do not hesitate to contact me if you have any questions or concerns. This medical document was created using an electronic medical record system with [email or web address] dictation system. Although these documentations are being carefully reviewed, there may still be some phonetic and typographical changes. The errors are purely typographical, due to imperfection on the software program, and do not reflect any compromise in the patient's medical care. Plan discussed with: Patient, Other (MILTON Coelho/EDUARDA) EMILY SEYMOUR MD Dec 07, 2024 23:23
[2024-12-08] VITALS (17 sets, daily range): BP systolic 107–134; BP diastolic 39–73; PULSE 74–100; RESP 16–20; TEMP 97.9–98.3; O2SAT 91–100
[2024-12-08 06:35] LABS: Mean Corpuscular Volume 72.5 fL (80.0-100.0)
[2024-12-08 06:38] LABS: Hematocrit 39.4 % (36.0-46.0); Hemoglobin 12.1 g/dL (12.2-16.2); Mean Corpuscular Hemoglobin 22.3 pg (28.0-32.0); Nucleated Red Blood Cells % 0.0 %
[2024-12-08 06:49] LABS: Sodium 141 mmol/L (136-145)
[2024-12-08 06:51] LABS: Calcium 9.7 mg/dL (8.7-10.4)
[2024-12-08 06:55] LABS: BUN/Creatinine Ratio 38.7 (10.0-20.0)
[2024-12-08 06:59] LABS: Anion Gap 5.99999 (5-15); Blood Urea Nitrogen 24 mg/dL (9-23); Chloride 95 mmol/L (98-107); Glucose 195 mg/dL (74-106); Potassium 5.3 mmol/L (3.5-5.1)
[2024-12-08 07:00] LABS: Carbon Dioxide > 40 mmol/L (20-31)
[2024-12-08] MEDS: DEXTROSE (50%) 50ML SYRG IV ONE ×2 (07:15→08:25)
[2024-12-08] MEDS: ALBUTEROL SULF 2.5 MG/0.5ML(0.5%) NEB SOLN NEB ONE (07:15)
[2024-12-08] MEDS: ALBUTEROL SULF 2.5 MG/0.5ML(0.5%) NEB SOLN ONE (07:25)
[2024-12-08] MEDS: InsuLIN REG 1unit/0.01ml Soln (100units/ml) IV ONE (08:30)
[2024-12-08] MEDS: SODIUM ZIRCONIUM CYCL 10 GM PAK PO ONE (10:26)
[2024-12-08 14:32] LABS: Base Excess 15.0 mmol/L (-2.0-3.0)
--- NOTE | 2024-12-08 19:41 | DVHPNRES ---
Progress Note Date Seen: Dec 08, 2024 Resident Creating Document: THOMAS WOODARD RESIDENT Medical Necessity Reason Pt with a Central, PICC or Fol: Yes The following are medically ne: Ascencio Catheter Reason for ascecnio catheter: Strict I&O Subjective Review of Systems Patient is a 84-year-old female with past medical history of asthma, COPD on home oxygen 2 L nasal cannula, prediabetes, hypertension, hyperlipidemia, and dementia, who presented to the ED with chief complaint of generalized weakness. History was derived via both of the patient's daughters, Seema and Tanya, who are historians. Per her daughters, patient has complained of back pain mainly affecting her left side, however are unable to describe characteristics of said pain. State the pain has affected her sleeping, and is associated with increased fatigue and anxiety. Additionally, state that patient has been less active and ambulating less since onset of symptoms. Per her daughters, they deny fever, chest pain, cough, shortness of breath, or other symptoms. On evaluation in the ED, she was found in moderate distress, tachycardic, and saturating 98% on 3L O2 NC. Initial labs show, CBC is within normal range, sodium 136, potassium 5.2, troponins were 40 trending to 44 and 43, and BNP 507.30. ABG pH 7.235, pCO2 83.1, O2 62.5, and HCO3 88.3. 12 lead EKG shows sinus tachycardia, with abnormal T wave, and borderline ST elevation. Chest xray shows cardiomegaly with questionable mild or early congestive changes. She was admitted for further work up and monitoring. On evaluation, patient was found to be somnolent. Follow up ABG was showed pH 7.19, pCO2 105.6, pO2 91, and HCO3 39.8. Patient was started on BIPAP, however, per RT she only tolerated BiPAP for 20 minutes. She was subsequently placed on 3L O2 on NC, with some improvement in blood gases. Wells score for this patient was calculated giving a 4.5, for which a CT angio was ordered showing bilateral lower lobe and right middle lobe atelectasis, no PE, centrilobular emphysema with enlarge of the pulmonary artery. he was seen by cardiology who had recommended BiPAP, diuretics as needed, and pulmonology consult. Pulmonology recommends continued use of bronchodilators, steroids, antibiotics, incentive spirometry, and supplemental oxygen with aims to keep saturation between 88-94%. Patient seen at bedside. Patient is more alert, oriented in person, place, and not time, still with some underlying disorientation due to baseline dementia. Per the nurse, patient is still refusing BiPAP, she was subsequently placed on 4L NC O2. Overnight, patient saturated in the uppers 70s, when instructed to breathe with her mouth closed her saturation improved. Vitals have otherwise remained stable. Echocardiogram shows LVEF 60% with normal RV function and pulmonary artery systolic pressure of 70 mmHg. Pulmonology is on board. We will continue to monitor. Objective vital signs Vital Sign Date Time Temp Pulse Resp B/P (MAP) Pulse Ox O2 Delivery O2 Flow Rate FiO2 12/08/24 19:32 89 16 99 12/08/24 19:24 Nasal Cannula 6.0 12/08/24 19:24 44 12/08/24 13:00 97.9 107/49 (68) 97.9 Total Intake and Output 12/07/24 12/07/24 12/08/24 15:00 23:00 07:00 Intake Total 600 ml 50 ml 0 ml Output Total 1400 ml Balance -800 ml 50 ml 0 ml medications Current Medications Medications Dose Ordered Sig/Barney Route Start Time Stop Time Status Last Admin Dose Admin Azithromycin 250 ml @ 125 mls/hr DAILY IV 12/06/24 10:00 12/08/24 10:20 125 MLS/HR Enoxaparin Sodium 30 mg DAILY SC 12/06/24 10:00 12/08/24 10:18 30 MG Furosemide 20 mg DAILY IV 12/06/24 10:00 12/08/24 10:19 20 MG Cefepime HCl 50 ml @ 12.5 mls/hr Q8HR IV 12/06/24 14:00 12/08/24 14:22 12.5 MLS/HR Budesonide 0.5 mg BID NEB 12/06/24 22:00 12/08/24 10:06 0.5 MG Ipratropium [place] 0.5 mg Q4HR NEB 12/06/24 14:00 12/08/24 19:24 0.5 MG Levalbuterol HCl 1.25 mg Q4HR NEB 12/06/24 14:00 12/08/24 19:24 1.25 MG Pantoprazole Sodium 40 mg DAILY IV 12/07/24 10:00 12/08/24 10:19 40 MG Diagnostic Test (Pha) 1 strip IQ4HR 12/07/24 16:00 12/08/24 17:02 1 STRIP Insulin Human Regular IQ4HR SC 12/07/24 16:00 12/08/24 17:03 6 UNITS Dextrose 50 ml UD PRN IV 12/07/24 15:45 Prednisone 40 mg DAILY PO 12/09/24 10:00 12/13/24 22:00 Examination General: Patient is alert, oriented in person, place, and not in time. Patient following commands HEENT: Normocephalic, atraumatic, EOM intact, dry mucous membrane Respiratory/pulmonary: Bilateral expansion, no pain on palpation, decreased bilateral air entry however improved from yesterday, no crackles or wheezes could not be appreciated due to decreased air entry. Cardiovascular: Normal RRR Abdomen: Obese, abdomen nondistended, normal bowel sounds, tympanic on percussion, soft, there is no pain to palpation in any of the abdominal quadrants, no palpable masses. : Presence of Ascencio draining clear urine Extremities: No deformities, no peripheral edema present at the lower extremities, pulses present Skin: No rashes or pruritus Neurological: Intact cranial nerves with no focal neurologic deficits laboratory and microbiology Laboratory Tests 12/08/24 12:56 12/08/24 05:55 Test 12/08/24 05:55 Range/Units Serum Glucose 195 H 74-106 mg/dL Microbiology Date/Time Source Procedure Growth Status 12/06/24 00:05 Blood Blood Culture - Preliminary NO GROWTH AFTER 48 HOURS OF INCUBATION. Resulted Problem List/Assessment/Plan Problem List/Assessment/Plan Assessment and Plan: Acute COPD Exacerbation -Chest Xray: cardiomegaly with questionable mild or early congestive changes -Ipratropium bromide 0.5 mg Neb q4 hr -Levalbuterol 1.25 mg Neb q4 hr -Solu Medrol 40 mg IV BID Acute on Chronic Hypercapnic Respiratory Failure -2L O2 NC -Not tolerating BiPAP -Per Pulmonology: Continue bronchodilators, steroids, antibiotics, incentive spirometry, supplemental oxygen, and keep O2 stats between 88-94%. Centrilobular Emphysema -CT Angio: Centrilobular emphysema with enlargement of the pulmonary artery which can be seen with pulmonary hypertension Atelectasis -CT angio: Bilateral lower lobe and right middle lobe atelectasis -Incentive spirometry Pulmonary Hypertension, likely type 3 -Echocardiogram: There is doming of the interventricular septum in systole and diastole consistent with a pressure/volume overload and pulmonary hypertension. Severe tricuspid regurgitation with a pulmonary artery systolic pressure of 70 mmHg consistent with severe pulmonary hypertension. Possible PNA (gram positive/gram negative) -Cefepime 1g IV q8 hr -Azithromycin 500 mg IV daily -Blood cultures: Preliminary: No growth after 24 hours of incubation Possible Acute on Chronic Diastolic CHF exacerbation -Furosemide 20 mg IV once -Furosemide 20 mg IV daily -Per cardiology: recommend BIPAP, [place] Lasix, patient is considered high risk for decompensation NSTEMI type 2 -Watch troponins Hyperkalemia, resolved -Lokelma 10 mg PO once -Furosemide 20 mg IV once -Regular insulin 10 U + dextrose once PE ruled out Type 2 Diabetes Mellitus, HbA1c: 7.1 Asthma Hypertension Hyperlipidemia Case discussed with Dr. Lang. Goals of care discussed with the patient's daughters Seema and Tanya for over 20 minutes. FULL CODE. Plan discussed with: Patient My Orders My Orders Orders - THOMAS WOODARD Procedure Category Date Status Time Up To Chair [facility] 12/08/24 In Process 11:49 Date of Service: Dec 08, 2024 Billing Provider: NICOLETTE LANG MD Common Visit Codes: [id number] INP/OBS CARE(HIGH) THOMAS WOODARD Dec 08, 2024 19:41 NICOLETTE LANG MD Dec 10, 2024 20:48
--- NOTE | 2024-12-08 23:47 | DVHPN2 ---
Progress Note - Dictate Date Seen: Dec 08, 2024 Medical Necessity Reason Pt with a Central, PICC or Fol: Yes The following are medically ne: Ascencio Catheter Reason for ascencio catheter: Strict I&O Subjective Patient seen and examined at bedside. Remains on supplemental oxygen Overnight events reviewed. vital signs Vital Sign Date Time Temp Pulse Resp B/P (MAP) Pulse Ox O2 Delivery O2 Flow Rate FiO2 12/08/24 21:00 98.3 78 18 108/39 (62) 99 98.3 12/08/24 19:24 Nasal Cannula 6.0 12/08/24 19:24 44 Total Intake and Output 12/07/24 12/07/24 12/08/24 15:00 23:00 07:00 Intake Total 600 ml 50 ml 0 ml Output Total 1400 ml Balance -800 ml 50 ml 0 ml medications Current Medications Medications Dose Ordered Sig/Barney Route Start Time Stop Time Status Last Admin Dose Admin Azithromycin 250 ml @ 125 mls/hr DAILY IV 12/06/24 10:00 12/08/24 10:20 125 MLS/HR Enoxaparin Sodium 30 mg DAILY SC 12/06/24 10:00 12/08/24 10:18 30 MG Furosemide 20 mg DAILY IV 12/06/24 10:00 12/08/24 10:19 20 MG Cefepime HCl 50 ml @ 12.5 mls/hr Q8HR IV 12/06/24 14:00 12/08/24 20:57 12.5 MLS/HR Budesonide 0.5 mg BID NEB 12/06/24 22:00 12/08/24 10:06 0.5 MG Ipratropium [place] 0.5 mg Q4HR NEB 12/06/24 14:00 12/08/24 19:24 0.5 MG Levalbuterol HCl 1.25 mg Q4HR NEB 12/06/24 14:00 12/08/24 19:24 1.25 MG Pantoprazole Sodium 40 mg DAILY IV 12/07/24 10:00 12/08/24 10:19 40 MG Diagnostic Test (Pha) 1 strip IQ4HR 12/07/24 16:00 12/08/24 20:00 1 STRIP Insulin Human Regular IQ4HR SC 12/07/24 16:00 12/08/24 20:58 6 UNITS Dextrose 50 ml UD PRN IV 12/07/24 15:45 Prednisone 40 mg DAILY PO 12/09/24 10:00 12/13/24 22:00 objective Gen.: Patient lying in bed in no apparent distress. On supplemental oxygen. Head: Normocephalic, atraumatic. Eyes: EOMI/PERRLA. Ears: Normal hearing. Normal anatomy. Neck/trachea: Trachea midline, supple. Nose: Normal external anatomy. Mouth: Moist mucous membranes. Chest: Decreased air entry bilaterally. No wheezing or rhonchi. Cardiovascular: Positive S1, positive S2. Regular rate and rhythm. Abdomen: Positive bowel sounds in all 4 quadrants. Soft, non-tender, non- distended. : Deferred. Rectal: Deferred. Skin: Warm, dry. Intact. Extremities: 2+ radial pulses bilaterally. No lower extremity edema. Neuro: Awake, alert, oriented x3. No gross motor or sensory deficits. Cranial nerves II through XII intact. Gait not assessed. laboratory and microbiology Laboratory Tests 12/08/24 12:56 12/08/24 05:55 Test 12/08/24 05:55 Range/Units Serum Glucose 195 H 74-106 mg/dL Assessment/Plan Impression: Acute on chronic hypercarbic respiratory failure Dependence on supplemental oxygen Acute on chronic CHF exacerbation NSTEMI type 2 Asthma Emphysema Enlarged pulmonary trunk Pneumonia Atelectasis Events: Remains on supplemental oxygen, 2 LPM NC Taper O2 as tolerated Patient is groggy Obtain STAT ABG to assess acid base status. Continue bronchodilators Continue IV steroids Continue antibiotics Incentive spirometry Accu-Cheks, ISS. Diurese w/ Lasix as tolerated Monitor renal function. Monitor electrolytes. Supplement as necessary. DVT prophylaxis with Lovenox SC Labs and imaging reviewed. Rest of plan as noted below. Plan: Supplemental oxygen Titrate to keep O2 sats between 88-94% due to CO2 retention. Taper O2 as tolerated. BiPAP PRN ABG on 12/06 showing chronic hypercarbia w/metabolic compensation- pCO2 of 82.4 mmHg. CTA chest reviewed; no pulmonary emboli. Bilateral lower lobe and right middle lobe atelectasis. Centrilobular emphysema with enlargement of pulmonary artery, which can be seen with pulmonary hypertension Mildly enlarged right atrium. Mitral annular and coronary calcium. Pt with hx of using wood-burning stove. Bronchodilators Steroids. Continue antibiotics Incentive spirometry Follow up Cardiology recommendations Diurese to euvolemia Monitor renal function. Monitor electrolytes. Supplement as necessary. Monitor ins and outs. DVT prophylaxis. Prognosis: Guarded given patient's multiple co-morbidities. Rest of plan per hospitalist and other consultants. Thank you, Dr. Rodas, for allowing me to participate in this patient's care. Further recommendations will depend on the patient's clinical course. Please do not hesitate to contact me if you have any questions or concerns. This medical document was created using an electronic medical record system with [employer] dictation system. Although these documentations are being carefully reviewed, there may still be some phonetic and typographical changes. The errors are purely typographical, due to imperfection on the software program, and do not reflect any compromise in the patient's medical care. Plan discussed with: Patient, Other (MILTON Douglas) EMILY SEYMOUR MD Dec 08, 2024 23:47
[2024-12-09] VITALS (12 sets, daily range): BP systolic 121–130; BP diastolic 61–74; PULSE 74–98; RESP 16–22; TEMP 97.4–98; O2SAT 89–99
[2024-12-09 08:42] LABS: Mean Corpuscular Hemoglobin 22.3 pg (28.0-32.0); Nucleated Red Blood Cells % 0.2 %
[2024-12-09 08:44] LABS: Hematocrit 41.9 % (36.0-46.0); Hemoglobin 12.9 g/dL (12.2-16.2); Mean Corpuscular Volume 72.2 fL (80.0-100.0)
[2024-12-09 08:57] LABS: Potassium 4.6 mmol/L (3.5-5.1); Sodium 142 mmol/L (136-145)
[2024-12-09 08:59] LABS: Anion Gap 8.99999 (5-15); Calcium 10.5 mg/dL (8.7-10.4); Chloride 93 mmol/L (98-107)
[2024-12-09 09:00] LABS: Carbon Dioxide > 40 mmol/L (20-31)
[2024-12-09 09:03] LABS: Glucose 106 mg/dL (74-106)
[2024-12-09 09:04] LABS: BUN/Creatinine Ratio 47.8 (10.0-20.0); Blood Urea Nitrogen 22 mg/dL (9-23)
[2024-12-09] MEDS: predniSONE 20 MG TAB PO SCH (09:36)
[2024-12-09] MEDS ORDERED: PRED20TA2 PO (14:50)
[2024-12-09] MEDS ORDERED: AZIT500T66 PO (14:50)
--- NOTE | 2024-12-09 16:57 | DVHDSRES ---
Discharge Summary Date of Admission Resident Creating Document: THOMAS WOODARD RESIDENT Dec 05, 2024 at 22:27 Date of Discharge: Dec 09, 2024 Admitting Diagnosis Acute COPD exacerbation Wounds: No wounds Labs/Diagnostic Data: Laboratory Results Test 12/09/24 11:45 12/09/24 08:09 12/08/24 14:20 12/06/24 06:05 POC Glucose 126 mg/dl (70-106) White Blood Count 10.5 10^3/uL (4.4-10.8) Red Blood Count 5.81 10^6/uL (4.0-5.20) Hemoglobin 12.9 g/dL (12.2-16.2) Hematocrit 41.9 % (36.0-46.0) Mean Corpuscular Volume 72.2 fL (80.0-100.0) Mean Corpuscular Hemoglobin 22.3 pg (28.0-32.0) Mean Corpuscular Hemoglobin Concent 30.9 g/dL (32.0-36.0) Red Cell Distribution Width 20.8 % (11.8-14.3) Platelet Count 271 10^3/uL (140-450) Mean Platelet Volume 7.8 fL (6.9-10.8) Neutrophils (%) (Auto) 75.3 % (37.0-80.0) Lymphocytes (%) (Auto) 13.6 % (10.0-50.0) Monocytes (%) (Auto) 10.6 % (0.0-12.0) Eosinophils (%) (Auto) 0.0 % (0.0-7.0) Basophils (%) (Auto) 0.5 % (0.0-2.0) Neutrophils # (Auto) 7.9 10 ^3/uL (1.6-8.6) Lymphocytes # (Auto) 1.4 10 ^3/uL (0.4-5.4) Monocytes # (Auto) 1.1 10 ^3/uL (0-1.3) Eosinophils # (Auto) 0 10 ^3/uL (0-0.8) Basophils # (Auto) 0 10 ^3/uL (0-0.2) Nucleated Red Blood Cells 0.2 % Sodium Level 142 mmol/L (136-145) Potassium Level 4.6 mmol/L (3.5-5.1) Chloride Level 93 mmol/L (98-107) Carbon Dioxide Level > 40 mmol/L (20-31) Anion Gap 8.31352 (5-15) Blood Urea Nitrogen 22 mg/dL (9-23) Creatinine 0.46 mg/dL (0.550-1.02) Glomerular Filtration Rate Calc 95 mL/min (>90) BUN/Creatinine Ratio 47.8 (10.0-20.0) Serum Glucose 106 mg/dL (74-106) Calcium Level 10.5 mg/dL (8.7-10.4) Blood Gas Specimen Type Arterial Blood Gas Sample Site Right brachial Blood Gas Patient Temperature 37.0 Arterial Blood Date Drawn [id number] Arterial Blood pH 7.326 (7.350-7.450) Arterial Blood Partial Pressure CO2 88.3 mmHg (32.0-45.0) Arterial Blood Partial Pressure O2 60.5 mmHg (83.0-108.0) Arterial Blood HCO3 45.1 mmol/L (21.0-28.0) Arterial Blood Oxygen Saturation 88.3 % (94.0-98.0) Arterial Blood Base Excess 15.0 mmol/L (-2.0-3.0) Arterial Blood Oxyhemoglobin 87.0 % (94.0-98.0) Arterial Blood Carboxyhemoglobin 1.0 % (0.5-1.5) Arterial Blood Methemoglobin 0.5 % (0.0-1.5) Rosalio Test Modified Blood Gas Total Hemoglobin 13.00 g/dL (12.0-16.0) Blood Gas Liter Flow 2.00 Blood Gas Modality Nasal cannula FiO2 % 28.0 Blood Gas Critical Value Read Back Yes Blood Gas Notified Whom Dr. dakota rowe Blood Gas Notified Time [id number] Blood Gas Notified By Rt, soco fermin Influenza Type A Antigen Negative (Negative) Influenza Type B Antigen Negative (Negative) Test 12/06/24 04:55 12/05/24 23:09 12/05/24 20:28 12/05/24 19:47 Hemoglobin A1c 7.1 % A1C (<5.7) Total Bilirubin 0.6 mg/dL (0.2-1.0) Aspartate Amino Transferase (AST) 20 U/L (13-40) Alanine Aminotransferase (ALT) 27 U/L (7-40) Alkaline Phosphatase 117 U/L (46-116) C-Reactive Protein High Sensitivity 0.15 mg/dL (<1.0) B-Type Natriuretic Peptide 507.30 pg/mL (0-100) Total Protein 6.2 g/dL (5.7-8.2) Albumin 4.3 g/dL (3.2-4.8) Blood Gas Spontaneous Rate 20 Specimen Drawn By [place] rt Troponin I High Sensitivity 43 ng/L (</=34) Urine Color Light-yellow (Yellow) Urine Clarity Clear (Clear) Urine pH 6.0 (5.0-9.0) Urine Specific [place] 1.013 (1.001-1.035) Urine Protein Negative (Negative) Urine Ketones Negative (Negative) Urine Blood Negative /uL (Negative) Urine Nitrite Negative (Negative) Urine Bilirubin Negative (Negative) Urine Urobilinogen Normal mg/dL (Negative) Urine Leukocyte Esterase Negative /uL (Negative) Urine RBC <1 /hpf (0 - 4) Urine Microscopic WBC 1 /HPF (0-5) Urine Squamous Epithelial Cells Few /hpf (<5) Urine Bacteria Few /hpf (None Seen) Urine Glucose Normal mg/dL (Normal) Test 12/05/24 00:00 SARS-CoV-2 Antigen (Rapid) Negative (NEGATIVE) Other Laboratory Tests 12/09/24 08:09 Condition at Discharge: Stable Final Diagnosis/Problems List Acute COPD Exacerbation Discharge Disposition: Home Discharge Instruct/Medications Diet: Consistent carbohydrate Activity: No Restrictions, As Tolerated Follow Up/Referral: Please follow up with PCP in 1-2 week Please follow up with a customer care representative upon referral Medications: Prednisone Azithromycin Ipratropium bromide Albuterol Scheduled Azithromycin (Azithromycin), 1 TAB PO DAILY Furosemide (Furosemide), 1 TAB PO DAILY, (Reported) Prednisone (Prednisone), 40 MG PO DAILY Discharge Statement: "Patient was advised to return to the ER or call 911 if any headaches, dizziness, shortness of breath, chest pain, abdominal pain, bleeding, fevers, or worsening of medical condition. Patient was counseled about treatment plan, medications, possible side effects, patientverbalized understanding. All questions were answered to the best of my ability. This discharge took greater then 30 minutes in planning, reviewing documentation, counseling the patient, and discussing with other team members." ASSESSMENT ASSESSMENT Assessment Acute COPD Exacerbation THOMAS WOODARD RESIDENT Dec 09, 2024 16:57
--- NOTE | 2024-12-09 17:09 | DVHDSRES ---
Discharge Summary Date of Admission Resident Creating Document: THOMAS WOODARD RESIDENT Dec 05, 2024 at 22:27 Date of Discharge: Dec 09, 2024 Admitting Diagnosis Acute on chronic hypercapnic respiratory failure Wounds: No wounds Labs/Diagnostic Data: Laboratory Results Test 12/09/24 11:45 12/09/24 08:09 12/08/24 14:20 12/06/24 06:05 POC Glucose 126 mg/dl (70-106) White Blood Count 10.5 10^3/uL (4.4-10.8) Red Blood Count 5.81 10^6/uL (4.0-5.20) Hemoglobin 12.9 g/dL (12.2-16.2) Hematocrit 41.9 % (36.0-46.0) Mean Corpuscular Volume 72.2 fL (80.0-100.0) Mean Corpuscular Hemoglobin 22.3 pg (28.0-32.0) Mean Corpuscular Hemoglobin Concent 30.9 g/dL (32.0-36.0) Red Cell Distribution Width 20.8 % (11.8-14.3) Platelet Count 271 10^3/uL (140-450) Mean Platelet Volume 7.8 fL (6.9-10.8) Neutrophils (%) (Auto) 75.3 % (37.0-80.0) Lymphocytes (%) (Auto) 13.6 % (10.0-50.0) Monocytes (%) (Auto) 10.6 % (0.0-12.0) Eosinophils (%) (Auto) 0.0 % (0.0-7.0) Basophils (%) (Auto) 0.5 % (0.0-2.0) Neutrophils # (Auto) 7.9 10 ^3/uL (1.6-8.6) Lymphocytes # (Auto) 1.4 10 ^3/uL (0.4-5.4) Monocytes # (Auto) 1.1 10 ^3/uL (0-1.3) Eosinophils # (Auto) 0 10 ^3/uL (0-0.8) Basophils # (Auto) 0 10 ^3/uL (0-0.2) Nucleated Red Blood Cells 0.2 % Sodium Level 142 mmol/L (136-145) Potassium Level 4.6 mmol/L (3.5-5.1) Chloride Level 93 mmol/L (98-107) Carbon Dioxide Level > 40 mmol/L (20-31) Anion Gap 8.84795 (5-15) Blood Urea Nitrogen 22 mg/dL (9-23) Creatinine 0.46 mg/dL (0.550-1.02) Glomerular Filtration Rate Calc 95 mL/min (>90) BUN/Creatinine Ratio 47.8 (10.0-20.0) Serum Glucose 106 mg/dL (74-106) Calcium Level 10.5 mg/dL (8.7-10.4) Blood Gas Specimen Type Arterial Blood Gas Sample Site Right brachial Blood Gas Patient Temperature 37.0 Arterial Blood Date Drawn [id number] Arterial Blood pH 7.326 (7.350-7.450) Arterial Blood Partial Pressure CO2 88.3 mmHg (32.0-45.0) Arterial Blood Partial Pressure O2 60.5 mmHg (83.0-108.0) Arterial Blood HCO3 45.1 mmol/L (21.0-28.0) Arterial Blood Oxygen Saturation 88.3 % (94.0-98.0) Arterial Blood Base Excess 15.0 mmol/L (-2.0-3.0) Arterial Blood Oxyhemoglobin 87.0 % (94.0-98.0) Arterial Blood Carboxyhemoglobin 1.0 % (0.5-1.5) Arterial Blood Methemoglobin 0.5 % (0.0-1.5) Rosalio Test Modified Blood Gas Total Hemoglobin 13.00 g/dL (12.0-16.0) Blood Gas Liter Flow 2.00 Blood Gas Modality Nasal cannula FiO2 % 28.0 Blood Gas Critical Value Read Back Yes Blood Gas Notified Whom Dr. dakota rowe Blood Gas Notified Time [id number] Blood Gas Notified By [facility] Influenza Type A Antigen Negative (Negative) Influenza Type B Antigen Negative (Negative) Test 12/06/24 04:55 12/05/24 23:09 12/05/24 20:28 12/05/24 19:47 Hemoglobin A1c 7.1 % A1C (<5.7) Total Bilirubin 0.6 mg/dL (0.2-1.0) Aspartate Amino Transferase (AST) 20 U/L (13-40) Alanine Aminotransferase (ALT) 27 U/L (7-40) Alkaline Phosphatase 117 U/L (46-116) C-Reactive Protein High Sensitivity 0.15 mg/dL (<1.0) B-Type Natriuretic Peptide 507.30 pg/mL (0-100) Total Protein 6.2 g/dL (5.7-8.2) Albumin 4.3 g/dL (3.2-4.8) Blood Gas Spontaneous Rate 20 Specimen Drawn By [facility] rt Troponin I High Sensitivity 43 ng/L (</=34) Urine Color Light-yellow (Yellow) Urine Clarity Clear (Clear) Urine pH 6.0 (5.0-9.0) Urine Specific [place] 1.013 (1.001-1.035) Urine Protein Negative (Negative) Urine Ketones Negative (Negative) Urine Blood Negative /uL (Negative) Urine Nitrite Negative (Negative) Urine Bilirubin Negative (Negative) Urine Urobilinogen Normal mg/dL (Negative) Urine Leukocyte Esterase Negative /uL (Negative) Urine RBC <1 /hpf (0 - 4) Urine Microscopic WBC 1 /HPF (0-5) Urine Squamous Epithelial Cells Few /hpf (<5) Urine Bacteria Few /hpf (None Seen) Urine Glucose Normal mg/dL (Normal) Test 12/05/24 00:00 SARS-CoV-2 Antigen (Rapid) Negative (NEGATIVE) Other Laboratory Tests 12/09/24 08:09 Brief Hx & Hospital Course: Patient is a 84-year-old female with past medical history of asthma, COPD on home oxygen 2 L nasal cannula, prediabetes, hypertension, hyperlipidemia, and dementia, who presented to the ED with chief complaint of generalized weakness. History was derived via both of the patient's daughters, Seema and Tanya, who are historians. Per her daughters, patient has complained of back pain mainly affecting her left side, however are unable to describe characteristics of said pain. State the pain has affected her sleeping, and is associated with increased fatigue and anxiety. Additionally, state that patient has been less active and ambulating less since onset of symptoms. Per her daughters, they deny fever, chest pain, cough, shortness of breath, or other symptoms. On evaluation in the ED, she was found in moderate distress, tachycardic, and saturating 98% on 3L O2 NC. Initial labs show, CBC is within normal range, sodium 136, potassium 5.2, troponins were 40 trending to 44 and 43, and BNP 507.30. ABG pH 7.235, pCO2 83.1, O2 62.5, and HCO3 88.3. 12 lead EKG shows sinus tachycardia, with abnormal T wave, and borderline ST elevation. Chest xray shows cardiomegaly with questionable mild or early congestive changes. She was admitted for further work up and monitoring. On evaluation, patient was found to be somnolent. Follow up ABG was showed pH 7.19, pCO2 105.6, pO2 91, and HCO3 39.8. Patient was started on BIPAP, however, per RT she only tolerated BiPAP for 20 minutes. She was subsequently placed on 3L O2 on NC, with some improvement in blood gases. Wells score for this patient was calculated giving a 4.5, for which a CT angio was ordered showing bilateral lower lobe and right middle lobe atelectasis, no PE, centrilobular emphysema with enlarge of the pulmonary artery. he was seen by cardiology who had recommended BiPAP, diuretics as needed, and pulmonology consult. Pulmonology recommends continued use of bronchodilators, steroids, antibiotics, incentive spirometry, and supplemental oxygen with aims to keep saturation between 88-94%. Echocardiogram shows LVEF 60% with normal RV function and pulmonary artery systolic pressure of 70 mmHg with severe tricuspid regurgitation, which is likely associated with her underlying COPD. Patient has progressed favorably. On evaluation today, she states she feels well, has slept well, is and is tolerating oral diet. Vitals have remained stable and patient is tolerating 2L O2 NC, which is her home baseline. She is considered stable for discharge home with oral steroids, oral antibiotics, and breathing treatments. She is recommended to follow up with her PCP in 1 week and to have referral to a power operator for continued monitoring of pulmonary hypertension. Her daughter, Seema, was contacted and all recommendations and medications were explained to her. She states she understands and agrees. Physical Exam: General: Patient is alert, oriented in person, place, and not in time. Patient following commands HEENT: Normocephalic, atraumatic, EOM intact, moist mucous membrane Respiratory/pulmonary: Bilateral expansion, no pain on palpation, improved bilateral air entry, no crackles or wheezes could not be appreciated due to decreased air entry. Cardiovascular: Normal RRR Abdomen: Obese, abdomen nondistended, normal bowel sounds, tympanic on percussion, soft, there is no pain to palpation in any of the abdominal quadrants, no palpable masses. Extremities: No deformities, no peripheral edema present at the lower extremities, pulses present Skin: No rashes or pruritus Neurological: Intact cranial nerves with no focal neurologic deficits Case discussed with Dr. Lang Goals of care discussed with the patient and her daughter, Seema, for over 30 minutes, who states she understands and agrees. Consults/Reason for consult Pulmonology was consulted due to acute on chronic hypercapnic respiratory failure Operations or Procedures ROCEDURE(s): CXRP - CHEST PORTABLE REASON: weakness ORDER NUMBER(s): [id number], ACCESSION NUMBER(s): [id number] AP portable chest Comparison: 09/21/2024 CLINICAL INDICATION: weakness FINDINGS: Heart size is enlarged. Slight bronchovascular prominence is present in the lower lung zones especially on the left IMPRESSION: 1. Cardiomegaly. Question mild or early congestive changes PROCEDURE(s): CTACH - CT ANGIO CHEST CONTRAST REASON: r/o PE ORDER NUMBER(s): [id number], ACCESSION NUMBER(s): [id number] CLINICAL HISTORY: r/o PE, shortness of breath TECHNIQUE: CT angiogram of the chest was performed with intravenous contrast 3D MIP reconstructed images were created and archived on the PACS system. This exam was performed according to our departmental dose optimization program. Up-to-date CT equipment and radiation dose reduction techniques are utilized as appropriate. WID: COMPARISON: None FINDINGS: Lungs: Bilateral lower lobe and right middle lobe subtotal atelectasis.. Mild centrilobular emphysema.. Cardiac: Mitral annular and coronary artery calcium. Mild right atrial chamber enlargement. Vascular: Main pulmonary artery is enlarged measuring 38mm. No pulmonary emboli. Lower lobes limited evaluation secondary to motion artifact. Atherosclerotic calcification of the thoracic area which is normal in caliber. Lymph nodes: unremarkable Thoracic inlet: Subcentimeter right thyroid lobe nodule. Bones: Moderate degenerative changes of the right glenohumeral joint. No acute osseus abnormality. The bones are mildly demineralized. Upper Abdomen: Status post cholecystectomy. IMPRESSION: 1. Bilateral lower lobe and right middle lobe atelectasis 2. No pulmonary emboli 3. Centrilobular emphysema with enlargement of the pulmonary artery which can be seen with pulmonary hypertension 4. Mildly enlarged right atrium 5. Mitral annular and coronary calcium Condition at Discharge: Stable Final Diagnosis/Problems List Possible Acute COPD Exacerbation, spirometry unavailable Acute on Chronic Hypercapnic Respiratory Failure Centrilobular Emphysema Atelectasis Pulmonary Hypertension, likely type 3 Severe tricuspid regurgitation Possible PNA (gram positive/gram negative) Possible Acute on Chronic Diastolic CHF exacerbation NSTEMI type 2 Hyperkalemia, resolved PE ruled out Type 2 Diabetes Mellitus, HbA1c: 7.1 Asthma Hypertension Hyperlipidemia Discharge Disposition: Home Discharge Instruct/Medications Diet: Consistent carbohydrate Activity: No Restrictions, As Tolerated Follow Up/Referral: Please follow up with PCP in 1-2 week Please follow up with a power operator upon referral Medications: Prednisone 40 mg PO daily for 4 days Azithromycin 1 tab PO daily for 2 days Ipratropium bromide 0.5 mg Neb q6 PRN Albuterol 2.5 mg Neb q6 PRN Furosemide 1 tab PO daily Scheduled Azithromycin (Azithromycin), 1 TAB PO DAILY Furosemide (Furosemide), 1 TAB PO DAILY, (Reported) Ipratropium [place] (Ipratropium [place]), 0.5 MG NEB Q4HR Levalbuterol HCl (Levalbuterol HCl), 1.25 MG NEB Q4HR Prednisone (Prednisone), 40 MG PO DAILY Scheduled PRN Umeclidinium-Vilanterol (Anoro Ellipta 62.5-25 Mcg/INH), 1 AER IN DAILY PRN Discharge Statement: "Patient was advised to return to the ER or call 911 if any headaches, dizziness, shortness of breath, chest pain, abdominal pain, bleeding, fevers, or worsening of medical condition. Patient was counseled about treatment plan, medications, possible side effects, patientverbalized understanding. All questions were answered to the best of my ability. This discharge took greater then 30 minutes in planning, reviewing documentation, counseling the patient, and discussing with other team members." ASSESSMENT ASSESSMENT Assessment Acute COPD Exacerbation Date of Service: Dec 09, 2024 Billing Provider: NICOLETTE LANG MD Common Visit Codes: 86130-GEM/OBS DISCH DAY >30min THOMAS WOODARD RESIDENT Dec 09, 2024 17:09 NICOLETTE LANG MD Dec 10, 2024 20:48
[2024-12-09] MEDS ORDERED: UMEC1AER IN (17:17)
[2024-12-09] MEDS ORDERED: IPR002IS NEB (17:17)
[2024-12-09] MEDS ORDERED: LEVA1.2518 NEB (17:17)
--- NOTE | 2024-12-09 23:37 | DVHPN2 ---
Progress Note - Dictate Date Seen: Dec 09, 2024 Medical Necessity Reason Pt with a Central, PICC or Fol: Yes The following are medically ne: Ascencio Catheter Reason for ascencio catheter: Strict I&O Subjective Patient seen and examined at bedside. Remains on supplemental oxygen Overnight events reviewed. vital signs Vital Sign Date Time Temp Pulse Resp B/P (MAP) Pulse Ox O2 Delivery O2 Flow Rate FiO2 12/09/24 16:16 98.0 82 19 94 12/09/24 14:28 Nasal Cannula 2.0 12/09/24 14:28 28 12/09/24 09:36 139/58 Total Intake and Output 12/08/24 12/08/24 12/09/24 15:00 23:00 07:00 Intake Total 300 ml 800 ml 50 ml Output Total 2150 ml 600 ml Balance 300 ml -1350 ml -550 ml medications Current Medications Medications Dose Ordered Sig/Barney Route Start Time Stop Time Status Last Admin Dose Admin Azithromycin 250 ml @ 125 mls/hr DAILY IV 12/06/24 10:00 12/09/24 09:36 125 MLS/HR Furosemide 20 mg DAILY IV 12/06/24 10:00 12/09/24 09:36 20 MG Cefepime HCl 50 ml @ 12.5 mls/hr Q8HR IV 12/06/24 14:00 12/09/24 13:33 12.5 MLS/HR Budesonide 0.5 mg BID NEB 12/06/24 22:00 12/09/24 07:43 0.5 MG Ipratropium [place] 0.5 mg Q4HR NEB 12/06/24 14:00 12/09/24 14:28 0.5 MG Levalbuterol HCl 1.25 mg Q4HR NEB 12/06/24 14:00 12/09/24 14:27 1.25 MG Pantoprazole Sodium 40 mg DAILY IV 12/07/24 10:00 12/09/24 09:36 40 MG Diagnostic Test (Pha) 1 strip IQ4HR 12/07/24 16:00 12/09/24 16:00 1 STRIP Insulin Human Regular IQ4HR SC 12/07/24 16:00 12/09/24 16:55 6 UNITS Dextrose 50 ml UD PRN IV 12/07/24 15:45 Prednisone 40 mg DAILY PO 12/09/24 10:00 12/13/24 22:00 12/09/24 09:36 40 MG Enoxaparin Sodium 40 mg DAILY SC 12/10/24 10:00 objective Gen.: Patient lying in bed in no apparent distress. On supplemental oxygen. Head: Normocephalic, atraumatic. Eyes: EOMI/PERRLA. Ears: Normal hearing. Normal anatomy. Neck/trachea: Trachea midline, supple. Nose: Normal external anatomy. Mouth: Moist mucous membranes. Chest: Decreased air entry bilaterally. No wheezing or rhonchi. Cardiovascular: Positive S1, positive S2. Regular rate and rhythm. Abdomen: Positive bowel sounds in all 4 quadrants. Soft, non-tender, non- distended. : Deferred. Rectal: Deferred. Skin: Warm, dry. Intact. Extremities: 2+ radial pulses bilaterally. No lower extremity edema. Neuro: Awake, alert, oriented x3. No gross motor or sensory deficits. Cranial nerves II through XII intact. Gait not assessed. laboratory and microbiology Laboratory Tests 12/09/24 08:09 Test 12/09/24 08:09 Range/Units Serum Glucose 106 74-106 mg/dL Assessment/Plan Impression: Acute on chronic hypercarbic respiratory failure Dependence on supplemental oxygen Acute on chronic CHF exacerbation NSTEMI type 2 Asthma Emphysema Enlarged pulmonary trunk Pneumonia Atelectasis Events: Remains on supplemental oxygen, 2 LPM NC Taper O2 as tolerated Keep sats between 88-94% ABG on 12/08 revealed acidemia with pH of 7.326, pCO2 of 88.3, pO2 of 60.5, HCO3 45.1. Patient is awake and alert Continue bronchodilators Continue antibiotics Continue steroids Incentive spirometry Accu-Cheks, ISS. Diurese w/ Lasix as tolerated Monitor renal function. Monitor electrolytes. Supplement as necessary. DVT prophylaxis with Lovenox SC Patient will be discharged with prednisone. Follow up in 2 weeks in Pulmonary Office at [address]. Disposition per hospitalist Labs and imaging reviewed. Rest of plan as noted below. Plan: Supplemental oxygen Titrate to keep O2 sats between 88-94% due to CO2 retention. Taper O2 as tolerated. BiPAP PRN ABG on 12/06 showing chronic hypercarbia w/metabolic compensation- pCO2 of 82.4 mmHg. CTA chest reviewed; no pulmonary emboli. Bilateral lower lobe and right middle lobe atelectasis. Centrilobular emphysema with enlargement of pulmonary artery, which can be seen with pulmonary hypertension Mildly enlarged right atrium. Mitral annular and coronary calcium. Pt with hx of using wood-burning stove. Bronchodilators Steroids. Continue antibiotics Incentive spirometry Follow up Cardiology recommendations Diurese to euvolemia Monitor renal function. Monitor electrolytes. Supplement as necessary. Monitor ins and outs. DVT prophylaxis. Prognosis: Guarded given patient's multiple co-morbidities. Rest of plan per hospitalist and other consultants. Thank you, Dr. Rodas, for allowing me to participate in this patient's care. Further recommendations will depend on the patient's clinical course. Please do not hesitate to contact me if you have any questions or concerns. This medical document was created using an electronic medical record system with [employer] dictation system. Although these documentations are being carefully reviewed, there may still be some phonetic and typographical changes. The errors are purely typographical, due to imperfection on the software program, and do not reflect any compromise in the patient's medical care. Plan discussed with: Patient, Other (MILTON Lemons) EMILY SEYMOUR MD Dec 09, 2024 23:37
[2024-12-10] MEDS ORDERED: ENOXAPARIN SOD 40 MG/0.4 ML SYRINGE SC SCH (10:00)
== END 2024-12-09 17:00 | disposition home or self-care (01) | DRG 140 ==
LOC: EDUNIT# 16:55 → EDBD 16:55 → ER 16:55 → OVERFLOW 22:27 → CENTRAL 12-07 17:36 → TELE-CENTR 12-07 19:50 → TELE-WESTW 12-08 01:27
PROVIDERS: ADMIT Internal Medicine Geriatric Medicine; ATTEND Emergency Medicine
PROC: 5A09357 Assistance with Respiratory Ventilation, Less than 24 Consecutive Hours, Continuous Positive Airway Pressure (ICD-10-PCS; principal; 2024-12-06)
PROC: 5A09357 Assistance with Respiratory Ventilation, Less than 24 Consecutive Hours, Continuous Positive Airway Pressure (ICD-10-PCS; 2024-12-08)
DX: J44.1 Chronic obstructive pulmonary disease with (acute) exacerbation (principal); J96.22 Acute and chronic respiratory failure with hypercapnia; I21.A1 Myocardial infarction type 2; I50.33 Acute on chronic diastolic (congestive) heart failure; J15.69 Pneumonia due to other Gram-negative bacteria; E87.29 Other acidosis; I27.20 Pulmonary hypertension, unspecified; J15.9 Unspecified bacterial pneumonia; I11.0 Hypertensive heart disease with heart failure; E87.5 Hyperkalemia; R62.7 Adult failure to thrive; Z99.81 Dependence on supplemental oxygen; F03.90 Unspecified dementia, unspecified severity, without behavioral disturbance, psychotic disturbance, mood disturbance, and anxiety; J44.0 Chronic obstructive pulmonary disease with (acute) lower respiratory infection; Z20.822 Contact with and (suspected) exposure to COVID-19; J43.2 Centrilobular emphysema; E11.9 Type 2 diabetes mellitus without complications; Z68.31 Body mass index [BMI] 31.0-31.9, adult; I07.1 Rheumatic tricuspid insufficiency; E78.5 Hyperlipidemia, unspecified; J98.11 Atelectasis
CPT/HCPCS: 36415; 36600; 71045; 71275; 80048; 80053; 81001; 82805; 82962; 83036; 83880; 84132; 84484; 85025; 86141; 87040; 87426; 87804; 93005; 93306; 94640; 94660; 96361; 96374; 99291; G0378; J1815; J2470

== ENCOUNTER 2024-12-10 18:26 | Inpatient (IN) | payer MEDICAID ==
[~2024-12-10] VITALS: Ht 160 cm; Wt 78.4 kg
[~2024-12-10 18:26] MED LIST changes: -ALBUAER3 IN; -ATOR10TA52 PO; +IPR002IS NEB; +LEVA1.2518 NEB; -LOSA-535 PO; -METF-370 PO; +UMEC1AER IN
--- NOTE | 2024-12-10 18:56 | ED.PDOC ---
SOB-HPI HPI Comments 84 year old [place] Speaking female with a Hx of Pneumonia, CHF, COPD, HTN, Hyperlipidemia, and DM was BIBA for the c/c of SOB w/ associated Wheezing, and productive Cough. EMS states that pts symptoms started 3x hours before ED arrival, and was given a breathing treatment because pt was SAT at 78% on RA. EMS notes that pt SP O2 improved with Breathing Tx and is currently SAT at 90%. Patient is not on home oxygen. No other associated symptoms, modifiers, recent injuries or sick contacts present at this time. Chief Complaint: Shortness of Breath Time Seen by MD: 18:52 Primary Care Provider: JUSTIN Joe notes: Nurses Notes, Packaging Supervisor Notes, Medications, Allergies Information Source: Patient, Emergency Med Personnel Mode of Arrival: EMS Severity: Moderate Timing: Hours Duration: Since onset, Hours Context: Spontaneous Onset PE Risk Factors: None History of: COPD, CHF Prehospital treatment: 12 Lead EKG, Accucheck, Breathing Tx, Furniture Builder, Oxygen Modifying Factors: Nothing Associated Signs and Symptoms: Wheeze, Cough If cough with SOB: Productive Past Medical History PAST MEDICAL HISTORY: Asthma, DM, HTN Surgical History: 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 Moist mucous membranes.) Neck: Full Range of Motion, Normal Inspection Respiratory: No Accessory Muscle Use, No Respiratory Distress, Rhonchi, Wheezing Cardiovascular: No Edema, No JVD, Regular Rate/Rhythm Breast Exam: Deferred Gastrointestinal: Non Tender, Soft Genitalia: Deferred Pelvic: Deferred Rectal: Deferred Extremities: Normal inspection, Normal range of motion, Non-tender, No pedal edema Neurologic: Alert (Oriented x4), Normal Affect, Normal Mood, Other (No gross focal deficit) Cerebellar Function: NOT DONE Reflexes: NOT DONE Skin: Dry, Normal Color, Warm Lymphatic: NOT DONE Was a procedure done? Was a procedure done?: No Differential Dx Differential Diagnosis: Anxiety, Asthma, Bronchitis, CHF, COPD, Panic Attack, Pneumonia, Pneumothorax, Pulmonary Embolism, Respiratory Distress, URI X-Ray, Labs, Meds, VS Vital Signs Date Time Temp Pulse Resp B/P (MAP) Pulse Ox O2 Delivery O2 Flow Rate FiO2 12/10/24 20:26 156/79 12/10/24 20:00 91 12/10/24 19:11 20 92 Nasal Cannula* 2 28 12/10/24 19:02 152/80 12/10/24 18:53 99.8 78 35 152/80 (104) 96 99.8 12/10/24 18:31 98.4 101 18 186/90 95 98.4 Lab Test 12/10/24 19:58 12/10/24 19:03 Range/Units Troponin I High Sensitivity 18 11 </=34 ng/L White Blood Count 9.2 4.4-10.8 10^3/uL Red Blood Count 5.87 H 4.0-5.20 10^6/uL Hemoglobin 13.0 12.2-16.2 g/dL Hematocrit 41.7 36.0-46.0 % Mean Corpuscular Volume 71.1 L 80.0-100.0 fL Mean Corpuscular Hemoglobin 22.1 L 28.0-32.0 pg Mean Corpuscular Hemoglobin Concent 31.2 L 32.0-36.0 g/dL Red Cell Distribution Width 20.9 H 11.8-14.3 % Platelet Count 268 140-450 10^3/uL Mean Platelet Volume 8.3 6.9-10.8 fL Neutrophils (%) (Auto) 93.1 H 37.0-80.0 % Lymphocytes (%) (Auto) 3.0 L 10.0-50.0 % Monocytes (%) (Auto) 3.7 0.0-12.0 % Eosinophils (%) (Auto) 0.0 0.0-7.0 % Basophils (%) (Auto) 0.2 0.0-2.0 % Neutrophils # (Auto) 8.6 1.6-8.6 10 ^3/uL Lymphocytes # (Auto) 0.3 L 0.4-5.4 10 ^3/uL Monocytes # (Auto) 0.3 0-1.3 10 ^3/uL Eosinophils # (Auto) 0 0-0.8 10 ^3/uL Basophils # (Auto) 0 0-0.2 10 ^3/uL Nucleated Red Blood Cells 0.1 % Sodium Level 132 #L 136-145 mmol/L Potassium Level 4.3 3.5-5.1 mmol/L Chloride Level 91 L 98-107 mmol/L Carbon Dioxide Level 36 H 20-31 mmol/L Anion Gap 5 5-15 Blood Urea Nitrogen 22 9-23 mg/dL Creatinine 0.50 L 0.550-1.02 mg/dL Glomerular Filtration Rate Calc 93 >90 mL/min BUN/Creatinine Ratio 44.0 H 10.0-20.0 Serum Glucose 224 H 74-106 mg/dL Lactic Acid Level 0.9 0.4-2.0 mmol/L Calcium Level 9.1 8.7-10.4 mg/dL Total Bilirubin 1.5 H 0.2-1.0 mg/dL Aspartate Amino Transferase (AST) 21 13-40 U/L Alanine Aminotransferase (ALT) 21 7-40 U/L Alkaline Phosphatase 83 46-116 U/L B-Type Natriuretic Peptide 87.10 0-100 pg/mL Total Protein 5.8 5.7-8.2 g/dL Albumin 4.2 3.2-4.8 g/dL Current Medications Medications (Trade) Dose Ordered Sig/Barney Route Start Time Stop Time Status Last Admin Vancomycin HCl 200 ml @ 200 mls/hr ONCE ONCE IV 12/10/24 18:45 12/10/24 19:44 DC 12/10/24 20:24 Albuterol (Ventolin Medneb) 5 mg ONCE ONCE NEB 12/10/24 18:45 12/10/24 18:47 DC 12/10/24 19:10 Ipratropium [place] (Atrovent Medneb) 0.5 mg ONCE ONCE NEB 12/10/24 18:45 12/10/24 18:47 DC 12/10/24 19:10 Methylprednisolone Sodium Succinate (Solu Medrol) 125 mg ONCE ONCE IV 12/10/24 18:45 12/10/24 18:47 DC 12/10/24 19:01 Furosemide (Lasix Injection) 40 mg ONCE ONCE IV 12/10/24 18:45 12/10/24 18:47 DC 12/10/24 19:02 Nitroglycerin (Nitro-Bid) 1 pkg ONCE ONCE TD 12/10/24 18:45 12/10/24 18:47 DC 12/10/24 20:26 PATIENT: TRINA FAY ACCT: [id number] UNIT: [id number] : 1940 LOC: ER ROOM / BED: / AGE / SEX: 84 / F ADM STATUS: REG ER SERVICE 41 ORDERING PHYSICIAN: MANDY BARNETT MD PROCEDURE(s): CXRP - CHEST PORTABLE REASON: sob ORDER NUMBER(s): [id number], ACCESSION NUMBER(s): [id number] INDICATION: sob TECHNIQUE: Frontal view of the chest. COMPARISON: XY CHEST PORTABLE on DOS: 12/05/24, XY CHEST TWO VIEWS ROUTINE on DOS: 09/21/24, CHEST PORTABLE on DOS: 04/11/22, CXRP on DOS: 04/10/22, CHEST PORTABLE on DOS: 12/01/21 FINDINGS/IMPRESSION: Low lung volumes. Hazy bilateral pulmonary opacities are seen. Small pleural effusions cannot be excluded. There is prominence of the interstitial markings. Unchanged cardiomediastinal silhouette. No pneumothorax. Unchanged osseous structures. X-Ray, Labs, Meds, VS Comment 84 year old [place] Speaking female with a Hx of Pneumonia, CHF, COPD, HTN, Hyperlipidemia, and DM was BIBA for the c/c of SOB w/ associated Wheezing, and productive Cough. Per EMS, oxygen saturation was in the 70s on room air initially. Vitals remarkable for BP 186/90, heart rate 101, oxygen saturation 92% on 2 L nasal cannula Exam remarkable for bilateral scattered expiratory wheezes and rhonchi Rhythm strip independently interpreted by me: Sinus tach, rate 101, no ectopy. Chest x-ray FINDINGS/IMPRESSION: Low lung volumes. Hazy bilateral pulmonary opacities are seen. Small pleural effusions cannot be excluded. There is prominence of the interstitial markings. Unchanged cardiomediastinal silhouette. No pneumothorax. Unchanged osseous structures. CBC unremarkable, basic metabolic panel remarkable for sodium 132, chloride 91, CO2 36, BNP and serial troponins unremarkable Patient treated with the following in the ED: Cefepime 2 g IV, vancomycin per pharmacy IV, albuterol 5 mg/Atrovent 0.5 mg nebulized, Solu-Medrol 125 mg IV, Lasix 40 mg IV On re-evaluation, patient states dyspnea has improved. Oxygen saturation is normal on nasal cannula oxygen. Other vitals are stable. Plan is to admit the patient for IV antibiotics and respiratory support as needed. Time of 1ST Reevaluation: 19:23 Reevaluation 1ST: Unchanged Patient Education/Counseling: Diagnosis, Treatment, Need For Follow Up Family Education/Counseling: No Family Present SEPSIS Sepsis Screen SEPSIS EXCLUSION NOTE: Sepsis Exclusion Note: Patient presents with SIRS criteria, but the SIRS response is attributed to [shortness of breath ]. Sepsis bundle is not initiated at this time, due to this reason. Further management will focus on the treatment of the above condition (s). Physician Orders Urinalysis (12/10/24 18:42) Chest Portable (12/10/24 18:42) Accucheck (12/10/24 18:42) Blood Culture (12/10/24 18:42) Lactic Acid W/ Reflex Order (12/10/24 22:00) Cefepime 1gm/ 50ml (Maxipime 1gm/50ml) (12/10/24 22:00) Notify Md If Map <65 Or Bp<90 (12/10/24 18:42) If Map<65 Start Vasopressor (12/10/24 18:42) Electrocardigram (12/10/24 18:42) Troponin-I Hs (12/10/24 21:42) Rapid Influenza A&B (12/10/24 18:55) Covid19 Antigen [place] (12/10/24 ) Vital Signs Date Time Temp Pulse Resp B/P (MAP) Pulse Ox O2 Delivery O2 Flow Rate FiO2 12/10/24 20:26 156/79 12/10/24 20:00 91 12/10/24 19:11 20 92 Nasal Cannula* 2 28 12/10/24 19:02 152/80 12/10/24 18:53 99.8 78 35 152/80 (104) 96 99.8 12/10/24 18:31 98.4 101 18 186/90 95 98.4 Laboratory Tests Test 12/10/24 19:03 Lactic Acid Level 0.9 mmol/L (0.4-2.0) White Blood Count 9.2 10^3/uL (4.4-10.8) Medications Medications Dose Ordered Sig/Barney Route Start Time Stop Time Status Last Admin Dose Admin Albuterol 5 mg ONCE ONCE NEB 12/10/24 18:45 12/10/24 18:47 DC 12/10/24 19:10 Furosemide 40 mg ONCE ONCE IV 12/10/24 18:45 12/10/24 18:47 DC 12/10/24 19:02 Ipratropium [place] 0.5 mg ONCE ONCE NEB 12/10/24 18:45 12/10/24 18:47 DC 12/10/24 19:10 Methylprednisolone Sodium Succinate 125 mg ONCE ONCE IV 12/10/24 18:45 12/10/24 18:47 DC 12/10/24 19:01 Nitroglycerin 1 pkg ONCE ONCE TD 12/10/24 18:45 12/10/24 18:47 DC 12/10/24 20:26 Vancomycin HCl 200 ml @ 200 mls/hr ONCE ONCE IV 12/10/24 18:45 12/10/24 19:44 DC 12/10/24 20:24 Departure 1 Departure Time of Disposition: 21:56 Impression: Primary Impression: Acute hypoxic respiratory failure Additional Impressions: COPD with acute exacerbation Pneumonia Disposition: ADMITTED INPATIENT Admit to: Tele Condition: Guarded Critical Care Note Critical Care Time?: Yes (35 min-critical care time only) Critical care comment: Critical care time including multiple bedside re-evaluations, review of lab and imaging studies, and discussion of the case with the admitting provider. Patient is high risk for respiratory decompensation. Stability Stability form required: No Heart Score Heart Score: Heart Score Response (Comments) Value History N/A 0 EKG N/A 0 Age N/A 0 Risk Factors N/A 0 Troponin N/A 0 Total 0 I personally scribed for MANDY BARNETT MD ([email or web address]) on 12/10/24 at 18:56. Electronically submitted by Avelino Rayo ([email or web address]). I personally scribed for MANDY BARNETT MD ([email or web address]) on 12/10/24 at 20:25. Electronically submitted by Avelino Rayo ([email or web address]). MANDY BARNETT MD Dec 10, 2024 18:56
[2024-12-10] MEDS: CEFEPIME 1GM/ 50ML 50 ML IV ONE (19:00)
[2024-12-10] MEDS: methylPREDNISolone SOD SUCC 125 MG/2 ML VL IV ONE (19:01)
[2024-12-10] MEDS: FUROSEMIDE 40 MG/4 ML VIAL IV ONE (19:02)
[2024-12-10] MEDS: ALBUTEROL SULF 2.5 MG/0.5ML(0.5%) NEB SOLN NEB ONE (19:10)
[2024-12-10] MEDS: IPRATROPIUM BROM 0.5 MG/2.5ML INH SOL NEB ONE (19:10)
[2024-12-10 19:23] LABS: Hemoglobin 13.0 g/dL (12.2-16.2)
[2024-12-10 19:25] LABS: Hematocrit 41.7 % (36.0-46.0); Mean Corpuscular Hemoglobin 22.1 pg (28.0-32.0); Mean Corpuscular Volume 71.1 fL (80.0-100.0); Nucleated Red Blood Cells % 0.1 %
[2024-12-10 19:30] VITALS: PULSE 91; RESP 14; O2SAT 94
[2024-12-10 19:36] LABS: Alanine Aminotransferase 21 U/L (7-40); Albumin 4.2 g/dL (3.2-4.8); Alkaline Phosphatase 83 U/L (46-116); Anion Gap 5 (5-15); BUN/Creatinine Ratio 44.0 (10.0-20.0); Blood Urea Nitrogen 22 mg/dL (9-23); Calcium 9.1 mg/dL (8.7-10.4); Potassium 4.3 mmol/L (3.5-5.1); Total Protein 5.8 g/dL (5.7-8.2)
[2024-12-10 19:39] LABS: Bilirubin, Total 1.5 mg/dL (0.2-1.0); Carbon Dioxide 36 mmol/L (20-31); Chloride 91 mmol/L (98-107); Glucose 224 mg/dL (74-106); Sodium 132 mmol/L (136-145)
--- NOTE | 2024-12-10 19:55 | DVH ---
INDICATION: sob TECHNIQUE: Frontal view of the chest. COMPARISON: XY CHEST PORTABLE on DOS: 12/05/24, XY CHEST TWO VIEWS ROUTINE on DOS: 09/21/24, CHEST PORT ABLE on DOS: 04/11/22, CXRP on DOS: 04/10/22, CHEST PORTABLE on DOS: 12/01/21 FINDINGS/IMPRESSION: Low lung volumes. Hazy bilateral pulmonary opacities are seen. Small pleural effusions cannot be exc luded. There is prominence of the interstitial markings. Unchanged cardiomediastinal silhouette. No pneumothorax. Unchanged osseous structures.
[2024-12-10] MEDS: VANCOMYCIN 1GM/200ML PM 200 ML IV ONE (20:24)
[2024-12-10] MEDS: NITROGLYCERIN 2% OINT 1GM PKG TD ONE (20:26)
[2024-12-10] MEDS ORDERED: CEFEPIME 1GM/ 50ML 50 ML IV SCH (22:00)
--- NOTE | 2024-12-10 22:14 | DVHHP2 ---
History of Present Illness Reason for Visit: Acute respiratory distress History of Present Illness The patient is a 84-year-old Croatian-speaking female with past medical history of pneumonia, CHF, COPD, hypertension, DM, and hyperlipidemia who presented to [facility] ED with complaint of shortness of breaths. Patient reports she has been experiencing shortness of breaths associated with wheezing, productive cough, desaturating on room air at 78%, increased work of breathing, getting worse that prompted this visit. Patient was seen and evaluated in the ED, laboratory data shows WBC 9.2, platelets 268, sodium 132, potassium 4.3, BUN 22, creatinine 0.50, glucose 234, calcium 9.1, BNP 87.10, troponin 18, total bilirubin 1.5, blood pressure 156/79, heart rate 92, temperature 98.8 F, O2 saturation 92% on oxygen. Chest x-ray revealing low lung volume, hazy bilateral pulmonary opacity seen, small pleural effusions can not be excluded. Please see medication orders section in the computer. On my assessment, patient denied chest pain, no headache, no dizziness, currently on oxygen, no diaphoresis, no diarrhea, no nausea, no vomiting, no fever, no chills. Patient was admitted for further evaluation and medical management. Past Medical History Pneumonia, COPD, CHF, Asthma, DM, HTN Past Surgical History Cholecystectomy Family History Reviewed, noncontributory to the management of this case. Past Social History The patient lives at home, denies smoking, alcohol or illicit drugs abuse. Review of Systems Constitutional: Yes: Weakness; No: Fever, Chills, Sweats, Malaise, Other Eyes: No: Pain, Vision change, Conjunctivae inflammation, Eyelid inflammation, Other, Redness ENT: No: Ear pain, Ear discharge, Nose pain, Nose discharge, Nose congestion, Mouth pain, Mouth swelling, Throat pain, Throat swelling, Other Respiratory: Cough, Shortness of breath, SOB with excertion, Wheezing, Other (SOB at rest); No: Dry, Hemoptysis, Pleuritic Pain, Sputum, Wheezing Cardiovascular: No: Chest Pain, Palpitations, Orthopnea, Paroxysmal Noc. Dyspnea, Edema, Lt Headedness, Other Gastrointestinal: No: Nausea, Vomiting, Abdominal Pain, Diarrhea, Constipation, Melena, Hematochezia, Other Genitourinary: No Dysuria, No Frequency, No Incontinence, No Hematuria, No R etention, No Other Musculoskeletal: No: other, neck pain, shoulder pain, arm pain, back pain, hand pain, leg pain, foot pain Skin: No: Rash, Lesions, Jaundice, Bruising, Other Neurological: No: Weakness, Numbness, Incoordination, Change in speech, Confusion, Seizures, Other Allergies: Coded Allergies: NO KNOWN ALLERGIES (Unverified , 05/30/21) Medications Current Medications Medications Dose Ordered Sig/Barney Route Start Time Stop Time Status Last Admin Dose Admin Cefepime HCl 50 ml @ 12.5 mls/hr Q8HR IV 12/10/24 22:00 UNV Exam Vital Signs Vital Signs Date Time Temp Pulse Resp B/P (MAP) Pulse Ox O2 Delivery O2 Flow Rate FiO2 12/10/24 20:26 156/79 12/10/24 20:00 91 12/10/24 19:11 20 92 Nasal Cannula* 2 28 12/10/24 18:53 99.8 99.8 General Appearance: Alert, Oriented X3, Cooperative, No acute distress HEENT: Atraumatic, PERRLA, EOMI, Mucous membr. moist/pink Respiratory: Normal air movement Cardiovascular: Regular rate, Normal S1, Normal S2, No murmurs Abdominal: Normal bowel sounds, Soft, No tenderness, No hepatospenomegaly, No masses Extremities: No clubbing, No cyanosis, No edema, Normal pulses, No tenderness/swelling Skin: No rashes, No significant lesion Neuro: Normal speech, Normal tone, Sensation intact, Cranial nerves 3-12 NL, Reflexes 2+, Other (Generalized weakness) Psych/Mental Status: Mental status NL, Mood NL Labs/Xrays Labs Test 12/10/24 22:07 12/10/24 22:03 12/10/24 19:03 Range/Units White Blood Count 9.2 4.4-10.8 10^3/uL Red Blood Count 5.87 H 4.0-5.20 10^6/uL Hemoglobin 13.0 12.2-16.2 g/dL Hematocrit 41.7 36.0-46.0 % Mean Corpuscular Volume 71.1 L 80.0-100.0 fL Mean Corpuscular Hemoglobin 22.1 L 28.0-32.0 pg Mean Corpuscular Hemoglobin Concent 31.2 L 32.0-36.0 g/dL Red Cell Distribution Width 20.9 H 11.8-14.3 % Platelet Count 268 140-450 10^3/uL Mean Platelet Volume 8.3 6.9-10.8 fL Neutrophils (%) (Auto) 93.1 H 37.0-80.0 % Lymphocytes (%) (Auto) 3.0 L 10.0-50.0 % Monocytes (%) (Auto) 3.7 0.0-12.0 % Eosinophils (%) (Auto) 0.0 0.0-7.0 % Basophils (%) (Auto) 0.2 0.0-2.0 % Neutrophils # (Auto) 8.6 1.6-8.6 10 ^3/uL Lymphocytes # (Auto) 0.3 L 0.4-5.4 10 ^3/uL Monocytes # (Auto) 0.3 0-1.3 10 ^3/uL Eosinophils # (Auto) 0 0-0.8 10 ^3/uL Basophils # (Auto) 0 0-0.2 10 ^3/uL Nucleated Red Blood Cells 0.1 % Sodium Level 132 #L 136-145 mmol/L Potassium Level 4.3 3.5-5.1 mmol/L Chloride Level 91 L 98-107 mmol/L Carbon Dioxide Level 36 H 20-31 mmol/L Anion Gap 5 5-15 Blood Urea Nitrogen 22 9-23 mg/dL Creatinine 0.50 L 0.550-1.02 mg/dL Glomerular Filtration Rate Calc 93 >90 mL/min BUN/Creatinine Ratio 44.0 H 10.0-20.0 Serum Glucose 224 H 74-106 mg/dL Calcium Level 9.1 8.7-10.4 mg/dL Total Bilirubin 1.5 H 0.2-1.0 mg/dL Aspartate Amino Transferase (AST) 21 13-40 U/L Alanine Aminotransferase (ALT) 21 7-40 U/L Alkaline Phosphatase 83 46-116 U/L B-Type Natriuretic Peptide 87.10 0-100 pg/mL Total Protein 5.8 5.7-8.2 g/dL Albumin 4.2 3.2-4.8 g/dL PATIENT: TRINA FAYACCT: [id number] UNIT: [id number] : 1940 LOC: ER ROOM / BED: / AGE / SEX: 84 / F ADM STATUS: REG ER SERVICE 184 ORDERING PHYSICIAN: MANDY BARNETT MD PROCEDURE(s): CXRP - CHEST PORTABLE REASON: sob ORDER NUMBER(s): [id number], ACCESSION NUMBER(s): [id number] INDICATION: sob TECHNIQUE: Frontal view of the chest. COMPARISON: XY CHEST PORTABLE on DOS: 12/05/24, XY CHEST TWO VIEWS ROUTINE on DOS: 09/21/24, CHEST PORTABLE on DOS: 04/11/22, CXRP on DOS: 04/10/22, CHEST PORTABLE on DOS: 12/01/21 FINDINGS/IMPRESSION: Low lung volumes. Hazy bilateral pulmonary opacities are seen. Small pleural effusions cannot be excluded. There is prominence of the interstitial markings. Unchanged cardiomediastinal silhouette. No pneumothorax. Unchanged osseous structures. SEPSIS Sepsis Screen Date sepsis recognized/suspect: Dec 10, 2024 Time Sepsis recognized/suspect: 1830 Recent Procedure: No On Antibiotic Therapy: No Respiratory Rate >20: No Heart Rate >90: Yes Temp<36 C (96.8 F) or >38.3 C: No SBP <90 or MAP <65 mmHG: No New Acute Mental Status Change: No Is the patient on CPAP, BIPAP,: No Physician Orders Urinalysis (12/10/24 18:42) Chest Portable (12/10/24 18:42) Accucheck (12/10/24 18:42) Blood Culture (12/10/24 18:42) Lactic Acid W/ Reflex Order (12/10/24 22:00) Cefepime 1gm/ 50ml (Maxipime 1gm/50ml) (12/10/24 22:00) Notify Md If Map <65 Or Bp<90 (12/10/24 18:42) If Map<65 Start Vasopressor (12/10/24 18:42) Electrocardigram (12/10/24 18:42) Troponin-I Hs (12/10/24 21:42) Rapid Influenza A&B (12/10/24 18:55) Covid19 Antigen [place] (12/10/24 ) Vital Signs Date Time Temp Pulse Resp B/P (MAP) Pulse Ox O2 Delivery O2 Flow Rate FiO2 12/10/24 20:26 156/79 12/10/24 20:00 91 12/10/24 19:11 20 92 Nasal Cannula* 2 28 12/10/24 19:02 152/80 12/10/24 18:53 99.8 78 35 152/80 (104) 96 99.8 12/10/24 18:31 98.4 101 18 186/90 95 98.4 Laboratory Tests Test 12/10/24 19:03 12/10/24 22:03 Lactic Acid Level 0.9 mmol/L (0.4-2.0) Pending White Blood Count 9.2 10^3/uL (4.4-10.8) Medications Medications Dose Ordered Sig/Barney Route Start Time Stop Time Status Last Admin Dose Admin Albuterol 5 mg ONCE ONCE NEB 12/10/24 18:45 12/10/24 18:47 DC 12/10/24 19:10 5 MG Furosemide 40 mg ONCE ONCE IV 12/10/24 18:45 12/10/24 18:47 DC 12/10/24 19:02 40 MG Ipratropium Viola 0.5 mg ONCE ONCE NEB 12/10/24 18:45 12/10/24 18:47 DC 12/10/24 19:10 0.5 MG Methylprednisolone Sodium Succinate 125 mg ONCE ONCE IV 12/10/24 18:45 12/10/24 18:47 DC 12/10/24 19:01 125 MG Nitroglycerin 1 pkg ONCE ONCE TD 12/10/24 18:45 12/10/24 18:47 DC 12/10/24 20:26 1 PKG Vancomycin HCl 200 ml @ 200 mls/hr ONCE ONCE IV 12/10/24 18:45 12/10/24 19:44 DC 12/10/24 20:24 200 MLS/HR Assessment/Plan Assessment/Plan Acute hypoxic respiratory failure COPD with acute exacerbation Generalized weakness Pneumonia, unspecified organism Plan 1. Admit to telemetry unit 2. Breathing treatment 3. Pain control management 4. IV antibiotic management 5. Management of fluids and electrolytes 6. Consultation for hospitalist 7. Diagnostic test chest x-ray 8. DVT prophylaxis on SCDs 9. Repeat labs CBC, CMP in a.m. 10. Home medication reviewed and reconciled 11. Continue with current medical management 12. Treatment plan discussed with patient and RN. Patient verbalized understanding. Plan discussed with: Patient, Other (RN) Problem List: (1) Acute hypoxic respiratory failure (2) COPD with acute exacerbation (3) Generalized weakness (4) Pneumonia, unspecified organism Date of Service: Dec 10, 2024 Billing Provider: ASHLEIGH DUPONT DNP Common Visit Codes: [id number] INP/OBS CARE (HIGH) ASHLEIGH DUPONT DNP Dec 10, 2024 22:14
[2024-12-10] MEDS ORDERED: DEXTROSE (50%) 50ML SYRG IV PRN (22:15)
[2024-12-10] MEDS ORDERED: DOCUSATE SOD 100 MG CAP PO PRN (22:15)
[2024-12-10] MEDS ORDERED: MORPHINE SULFATE INJ 2 MG/ml SYRG IV PRN (22:15)
[2024-12-10] MEDS: SODIUM CHLORIDE 0.9% 1,000 ML IV SCH (22:15)
[2024-12-10] MEDS ORDERED: ONDANSETRON HCL 4 MG/2 ML VIAL IV PRN (22:15)
[2024-12-10] MEDS ORDERED: NITROGLYCERIN 0.4 MG SL TAB SL PRN (22:15)
[2024-12-10] MEDS ORDERED: HYDROcodone-ACET 5/325MG TAB PO PRN (22:15)
[2024-12-10] MEDS ORDERED: ACETAMINOPHEN 325 MG TAB PO PRN (22:15)
[2024-12-10 23:21] VITALS: BP 156/79; PULSE 91; RESP 16; O2SAT 95
[2024-12-10 23:48] VITALS: PULSE 82; RESP 18; O2SAT 95
[2024-12-10] MEDS: LEVALBUTEROL HCL 1.25 MG/3 ML NEB NEB SCH (23:48)
[2024-12-10 23:58] VITALS: PULSE 79; RESP 18; O2SAT 96
[2024-12-11] VITALS (10 sets, daily range): BP systolic 125; BP diastolic 65; PULSE 67–85; RESP 14–92; TEMP 97.6; O2SAT 10–100
[2024-12-11] MEDS: ACCU-CHEK COMFORT CURVE STRIP VI SCH
[2024-12-11] MEDS: InsuLIN REG 1unit/0.01ml Soln (100units/ml) SC SCH
[2024-12-11 03:53] LABS: Nucleated Red Blood Cells % 0.2 %
[2024-12-11 03:59] LABS: Hematocrit 41.9 % (36.0-46.0); Hemoglobin 13.1 g/dL (12.2-16.2); Mean Corpuscular Hemoglobin 22.0 pg (28.0-32.0); Mean Corpuscular Volume 70.3 fL (80.0-100.0)
[2024-12-11 04:10] LABS: Alanine Aminotransferase 22 U/L (7-40); Albumin 4.3 g/dL (3.2-4.8); Alkaline Phosphatase 81 U/L (46-116); BUN/Creatinine Ratio 34.5 (10.0-20.0); Blood Urea Nitrogen 19 mg/dL (9-23); Calcium 9.1 mg/dL (8.7-10.4); Potassium 3.9 mmol/L (3.5-5.1); Sodium 138 mmol/L (136-145); Total Protein 6.0 g/dL (5.7-8.2)
[2024-12-11 04:11] LABS: Bilirubin, Total 1.1 mg/dL (0.2-1.0)
[2024-12-11 04:13] LABS: Anion Gap 7.99999 (5-15); Chloride 90 mmol/L (98-107); Glucose 210 mg/dL (74-106)
[2024-12-11 04:15] LABS: Carbon Dioxide > 40 mmol/L (20-31)
[2024-12-11 05:05] LABS: Base Excess 14.4 mmol/L (-2.0-3.0)
[2024-12-11] MEDS: methylPREDNISolone SOD SUCC 40 MG/ML VL IV SCH (05:31)
[2024-12-11 06:24] LABS: COVID19 ANTIGEN SOFIA FIA NEGATIVE (NEGATIVE)
[2024-12-11] MEDS: IPRATROPIUM BROM 0.5 MG/2.5ML INH SOL NEB SCH (12:00)
[2024-12-11] MEDS: FAMOTIDINE (10MG/ML) 2ML VL IV SCH (13:21)
[2024-12-11] MEDS: cefTRIAXone 1GM/50ML D5W 50 ML IV ONE (13:21)
--- NOTE | 2024-12-11 15:12 | DVHPNRES ---
Progress Note Date Seen: Dec 11, 2024 Resident Creating Document: BRANDY CROWELL ROMERO Has the PT tested + for MRSA If YES, has PT been informed?: Yes Medical Necessity Reason Pt with a Central, PICC or Fol: No Medical Necessity Reason This is an 84-year-old male with past medical history of COPD, hypertension, diabetes, came to the hospital due to shortness of breaths. The patient was discharged on 12/09/2024, as needed due to COPD exacerbation, but since discharge her shortness of breath has progressively worsened which prompted this visit. She also reports of cough, and mild chest discomfort. She denies fever, palpitation, any recent chest trauma. Previous hospitalization: Patient was discharged on 01/07/2025, had admitted due to COPD exacerbation, methimazole with the patient was not able to get medicine. PMHx: Diabetes, COPD (on 2 L of oxygen at home), and hypertension Home medication: Sitagliptin 50 mg daily, Lasix, aspirin, atorvastatin, ondansetron Allergic history: No known allergy Patient seen and examined at the bedside. Patient is feeling better since admission with decreasing shortness of breath. Staff helped with translation from Pakistani Objective vital signs Vital Sign Date Time Temp Pulse Resp B/P (MAP) Pulse Ox O2 Delivery O2 Flow Rate FiO2 12/11/24 12:00 74 24 124/70 (88) 91 12/11/24 11:29 Nasal Cannula 3.0 12/11/24 11:29 32 12/11/24 08:00 98.3 98.3 medications Current Medications Medications Dose Ordered Sig/Barney Route Start Time Stop Time Status Last Admin Dose Admin Levalbuterol HCl 0.625 mg Q6HR NEB 12/11/24 00:00 12/11/24 11:29 0.625 MG Famotidine 20 mg Q12HR IV 12/11/24 10:00 12/11/24 13:21 20 MG Diagnostic Test (Pha) 1 strip IQ4HR 12/11/24 00:00 12/11/24 13:14 1 STRIP Insulin Human Regular IQ4HR SC 12/11/24 00:00 12/11/24 13:30 6 UNITS Dextrose 50 ml UD PRN IV 12/10/24 22:15 Sodium Chloride 1,000 ml @ 60 mls/hr [id number] IV 12/10/24 22:15 12/11/24 00:34 60 MLS/HR Ondansetron HCl 4 mg Q4HP PRN IV 12/10/24 22:15 Acetaminophen 650 mg Q6HP PRN PO 12/10/24 22:15 Methylprednisolone Sodium Succinate 40 mg DAILY IV 12/12/24 10:00 Ipratropium Bern 0.5 mg Q6HWA NEB 12/11/24 12:00 Ceftriaxone Sodium 50 ml @ 100 mls/hr DAILY@09 IV 12/12/24 09:00 Azithromycin 250 ml @ 125 mls/hr DAILY IV 12/12/24 10:00 Examination General Appearance: Alert, Oriented X3, Cooperative, No acute distress HEENT: Atraumatic, PERRLA, EOMI, Mucous membrane moist/pink Respiratory: Bilateral rhonchi Cardiovascular: Regular rate, Normal S1, Normal S2, No murmurs, no chest wall tenderness Abdominal: Normal bowel sounds, Soft, No tenderness, No hepatosplenomegaly, No masses Extremities: No clubbing, No cyanosis, No edema, Normal pulses, No tenderness/swelling Skin: No rashes, No breakdown, No significant lesion Neuro: Normal gait, Normal speech, Strength at 5/5 X4 ext, Normal tone, Sensation intact, Cranial nerves 3-12 NL, Reflexes 2+ Psych/Mental Status: Mental status NL, Mood NL laboratory and microbiology Laboratory Tests 12/11/24 03:13 Test 12/11/24 03:13 Range/Units Serum Glucose 210 H 74-106 mg/dL Labs and/or images reviewed: Labs reviewed by me, Image(s) reviewed by me Problem List/Assessment/Plan Problem List/Assessment/Plan Acute on chronic hypoxic/hypercapnic respiratory failure due to COPD exacerbation COPD exacerbation Diabetes type 2 Hypertension * Chest x-ray shows bilateral lower zone infiltration more on the right side * COVID-19 and flu swabs are negative Plan/recommendation * Empiric antibiotic of Rocephin and azithromycin * Breathing treatment * Oxygen through nasal cannula * Insulin according to sliding scale * Continue home meds * IV fluid * Methylprednisolone DIET: Diabetic diet DVT PROPHYLAXIS: Lovenox CODE STATUS: Goal of care discussed with the patient and her daughter for 20 minutes, full code DISPOSITION: Med/surge Patient's status and plan discussed with the patient. Case discussed with Dr. Tobias Plan discussed with: Patient, Other (RN) My Orders My Orders Orders - BRANDY CROWELL RESDIENT Procedure Category Date Status Time Methylprednisolone PHA 12/12/24 In Process Sod Succ (Solu Medrol 10:00 Ipratropium Medneb PHA 12/11/24 In Process (Atrovent Medneb) 12:00 Ceftriaxone 1gm/50ml PHA 12/12/24 In Process D5w (Rocephin) 09:00 Azithromycin 500mg/ PHA 12/12/24 In Process 250ml (Zithromax 50 10:00 Addendum Addendum Addendum I was physically present for the steinberg portions of the service provided to patient by THE RESIDENT. I have reviewed the documentation, discussed the case with resident and agree with the resident's documentation except as noted. Also the patient's clinical case was discussed with the patient's nurse. This medical document was created using an electronic medical record system with computerized dictation system. Although this document has been carefully reviewed, there might still be some phonetic and typographical errors. These areas are purely typographical due to imperfections of the software programs, and do not reflect any compromise in the patient's medical care. Late signature. Date of Service: Dec 11, 2024 Billing Provider: MATHEW TOBIAS MD Common Visit Codes: [id number] INP/OBS CARE(HIGH) Secondary Visit Codes: [id number] CARE PLAN 30 MINUTES (20 minutes) BRANDY CROWELL RESDIENT Dec 11, 2024 15:12 MATHEW TOBIAS MD Dec 12, 2024 14:26
[2024-12-11] MEDS: AZITHROMYCIN 500MG/ 250ML 250 ML IV ONE (17:21)
[2024-12-11] MEDS ORDERED: SITA50TA PO (18:28)
[2024-12-11] MEDS ORDERED: ASPI-543 PO (18:28)
[2024-12-11] MEDS ORDERED: ONDA-155 PO (18:28)
[2024-12-11] MEDS ORDERED: ATOR10TA52 PO (18:28)
[2024-12-12] VITALS (9 sets, daily range): BP systolic 107–135; BP diastolic 56–71; PULSE 64–76; RESP 16–18; TEMP 97.5–98; O2SAT 94–100
[2024-12-12] MEDS: ATORVASTATIN 20 MG TAB PO ONE (06:55)
[2024-12-12 07:18] LABS: Hemoglobin 12.2 g/dL (12.2-16.2)
[2024-12-12 07:21] LABS: Hematocrit 39.4 % (36.0-46.0); Mean Corpuscular Hemoglobin 22.3 pg (28.0-32.0); Mean Corpuscular Volume 72.0 fL (80.0-100.0); Nucleated Red Blood Cells % 0.1 %
[2024-12-12 07:46] LABS: Alanine Aminotransferase 17 U/L (7-40); Alkaline Phosphatase 63 U/L (46-116); Anion Gap 6 (5-15); BUN/Creatinine Ratio 45.2 (10.0-20.0); Blood Urea Nitrogen 19 mg/dL (9-23); Glucose 81 mg/dL (74-106); Potassium 3.9 mmol/L (3.5-5.1); Sodium 143 mmol/L (136-145)
[2024-12-12 07:47] LABS: Albumin 3.6 g/dL (3.2-4.8); Bilirubin, Total 0.9 mg/dL (0.2-1.0); Calcium 8.5 mg/dL (8.7-10.4); Carbon Dioxide 40 mmol/L (20-31); Chloride 97 mmol/L (98-107); Total Protein 5.0 g/dL (5.7-8.2)
[2024-12-12] MEDS: cefTRIAXone 1GM/50ML D5W 50 ML IV SCH (09:21)
[2024-12-12] MEDS: predniSONE 20 MG TAB PO SCH (09:22)
[2024-12-12] MEDS: AZITHROMYCIN 500MG/ 250ML 250 ML IV SCH (10:00)
[2024-12-12] MEDS ORDERED: methylPREDNISolone SOD SUCC 40 MG/ML VL IV SCH (10:00)
[2024-12-12 11:16] LABS: Hepatitis B Surface Antigen Negative (Negative); Hepatitis C Antibody Negative (Negative)
[2024-12-12] MEDS ORDERED: FLUT1AER3 IN (13:18)
[2024-12-12] MEDS ORDERED: AZIT500T66 PO (13:18)
[2024-12-12] MEDS ORDERED: PRED30TA4 PO (13:18)
--- NOTE | 2024-12-12 13:41 | DVHDSRES ---
Discharge Summary Date of Admission Resident Creating Document: BRANDY CROWELL RESDIELIZABETH Dec 10, 2024 at 22:08 Date of Discharge: Dec 12, 2024 Labs/Diagnostic Data: Laboratory Results Test 12/12/24 11:51 12/12/24 06:30 12/11/24 05:40 12/11/24 05:01 POC Glucose 144 mg/dl (70-106) White Blood Count 7.9 10^3/uL (4.4-10.8) Red Blood Count 5.48 10^6/uL (4.0-5.20) Hemoglobin 12.2 g/dL (12.2-16.2) Hematocrit 39.4 % (36.0-46.0) Mean Corpuscular Volume 72.0 fL (80.0-100.0) Mean Corpuscular Hemoglobin 22.3 pg (28.0-32.0) Mean Corpuscular Hemoglobin Concent 31.0 g/dL (32.0-36.0) Red Cell Distribution Width 20.6 % (11.8-14.3) Platelet Count 246 10^3/uL (140-450) Mean Platelet Volume 7.3 fL (6.9-10.8) Neutrophils (%) (Auto) 62.9 % (37.0-80.0) Lymphocytes (%) (Auto) 24.3 % (10.0-50.0) Monocytes (%) (Auto) 12.7 % (0.0-12.0) Eosinophils (%) (Auto) 0.0 % (0.0-7.0) Basophils (%) (Auto) 0.1 % (0.0-2.0) Neutrophils # (Auto) 5.0 10 ^3/uL (1.6-8.6) Lymphocytes # (Auto) 1.9 10 ^3/uL (0.4-5.4) Monocytes # (Auto) 1.0 10 ^3/uL (0-1.3) Eosinophils # (Auto) 0 10 ^3/uL (0-0.8) Basophils # (Auto) 0 10 ^3/uL (0-0.2) Nucleated Red Blood Cells 0.1 % Sodium Level 143 mmol/L (136-145) Potassium Level 3.9 mmol/L (3.5-5.1) Chloride Level 97 mmol/L (98-107) Carbon Dioxide Level 40 mmol/L (20-31) Anion Gap 6 (5-15) Blood Urea Nitrogen 19 mg/dL (9-23) Creatinine 0.42 mg/dL (0.550-1.02) Glomerular Filtration Rate Calc 97 mL/min (>90) BUN/Creatinine Ratio 45.2 (10.0-20.0) Serum Glucose 81 mg/dL (74-106) Calcium Level 8.5 mg/dL (8.7-10.4) Total Bilirubin 0.9 mg/dL (0.2-1.0) Aspartate Amino Transferase (AST) 15 U/L (13-40) Alanine Aminotransferase (ALT) 17 U/L (7-40) Alkaline Phosphatase 63 U/L (46-116) Total Protein 5.0 g/dL (5.7-8.2) Albumin 3.6 g/dL (3.2-4.8) Influenza Type A Antigen Negative (Negative) Influenza Type B Antigen Negative (Negative) SARS-CoV-2 Antigen (Rapid) Negative (NEGATIVE) Blood Gas Specimen Type Arterial Blood Gas Sample Site Right radial Blood Gas Patient Temperature 37.0 Arterial Blood Date Drawn [id number] Arterial Blood pH 7.430 (7.350-7.450) Arterial Blood Partial Pressure CO2 64.6 mmHg (32.0-45.0) Arterial Blood Partial Pressure O2 68.7 mmHg (83.0-108.0) Arterial Blood HCO3 41.9 mmol/L (21.0-28.0) Arterial Blood Oxygen Saturation 92.6 % (94.0-98.0) Arterial Blood Base Excess 14.4 mmol/L (-2.0-3.0) Arterial Blood Oxyhemoglobin 90.2 % (94.0-98.0) Arterial Blood Carboxyhemoglobin 1.9 % (0.5-1.5) Arterial Blood Methemoglobin 0.7 % (0.0-1.5) Rosalio Test Yes Blood Gas Total Hemoglobin 14.20 g/dL (12.0-16.0) Blood Gas Liter Flow 4.00 Blood Gas Modality Nasal cannula FiO2 % 36.0 Blood Gas Critical Value Read Back yes Blood Gas Notified Whom cesar Jarvis dnp Blood Gas Notified Time [id number] Blood Gas Notified By maribel tejeda, rt Test 12/11/24 03:13 12/10/24 22:07 12/10/24 22:03 12/10/24 19:03 Hepatitis B Surface Antigen Negative (Negative) Hepatitis C Antibody Negative (Negative) Troponin I High Sensitivity 20 ng/L (</=34) Lactic Acid Level 1.1 mmol/L (0.4-2.0) B-Type Natriuretic Peptide 87.10 pg/mL (0-100) Other Laboratory Tests 12/12/24 06:30 Brief Hx & Hospital Course: HISTORY OF PRESENT ILLNESS: This is an 84-year-old male with past medical history of COPD, hypertension, diabetes, came to the hospital due to shortness of breaths. The patient was discharged on 12/09/2024, as needed due to COPD exacerbation, but since discharge her shortness of breath has progressively worsened which prompted this visit. She also reports of cough, and mild chest discomfort. She denies fever, palpitation, any recent chest trauma. Previous hospitalization: Patient was discharged on 01/07/2025, had admitted due to COPD exacerbation, methimazole with the patient was not able to get medicine. PMHx: Diabetes, COPD (on 2 L of oxygen at home), and hypertension Home medication: Sitagliptin 50 mg daily, Lasix, aspirin, atorvastatin, ondansetron Allergic history: No known allergy HOSPITAL COURSE: Patient was admitted at the line of acute on chronic hypoxic/hypercarbic respiratory failure due to COPD exacerbation. Patient was started on empiric antibiotic of Rocephin, azithromycin, IV prednisolone, breathing treatment and IV fluid. Chest x-ray shows bilateral lower zone infiltration more on the right side. Oxygen was given through nasal cannula. During hospital admission, home medication including atorvastatin aspirin were continued. On , the patient was feeling better since admission. Discharge plan discussed with the patient and the patient discharged home. DISCHARGE PLAN: Follow up with the PCP within 1 week of the discharge. Tablet azithromycin 500 mg daily for 3 days Tablet prednisone 30 mg daily for 3 days Trelegy once daily for 2 months Continue home meds FINAL DIAGNOSIS, Acute on chronic hypoxic/hypercapnic respiratory failure due to COPD exacerbation Pneumonia, likely due to Gram-positive/Gram-negative bacteria/viral COPD exacerbation Diabetes type 2 Hypertension Obesity Condition at Discharge: Good Final Diagnosis/Problems List COPD exacerbation Discharge Disposition: Home Discharge Instruct/Medications Diet: Regular Activity: No Restrictions, As Tolerated Follow Up/Referral: Follow up with the PCP within 1 week of the discharge. Follow up with the discharge Clinic within 1 week of the discharge Medications: Prednisolone 40 mg daily for 3 days Azithromycin 500 mg daily for 3 days Trelegy inhaler Continue home meds Scheduled Aspirin (Aspir-Low), 81 MG PO DAILY, (Reported) Atorvastatin Calcium (Atorvastatin Calcium), 1 TAB PO HS, (Reported) Azithromycin (Azithromycin), 1 TAB PO DAILY Azithromycin (Azithromycin), 1 TAB PO DAILY Xteggmdkqnm-Eusnvcmnnqxk-Mommi (Trelegy Ellipta 100-62.5-25 Mcg/INH), 1 AER IN DAILY Furosemide (Furosemide), 1 TAB PO DAILY, (Reported) Ipratropium [place] (Ipratropium [place]), 0.5 MG NEB Q4HR Levalbuterol HCl (Levalbuterol HCl), 1.25 MG NEB Q4HR Prednisolone Sodium Phosphate (Prednisolone Sodium Phosp), 30 MG PO DAILY Prednisone (Prednisone), 40 MG PO DAILY Sitagliptin Phosphate (Januvia), 25 MG PO DAILY, (Reported) Scheduled PRN Ondansetron HCl (Ondansetron), 4 MG PO BID PRN for NAUSEA / VOMITING, (Reported) Umeclidinium-Vilanterol (Anoro Ellipta 62.5-25 Mcg/INH), 1 AER IN DAILY PRN Discharge Statement: "Patient was advised to return to the ER or call 911 if any headaches, dizziness, shortness of breath, chest pain, abdominal pain, bleeding, fevers, or worsening of medical condition. Patient was counseled about treatment plan, medications, possible side effects, patientverbalized understanding. All questions were answered to the best of my ability. This discharge took greater then 30 minutes in planning, reviewing documentation, counseling the patient, and discussing with other team members." ASSESSMENT ASSESSMENT Assessment COPD exacerbation BRANDY CROWELL Dec 12, 2024 13:41
[2024-12-12] MEDS ORDERED: ATORVASTATIN 20 MG TAB PO SCH (22:00)
== END 2024-12-12 15:30 | disposition home or self-care (01) | DRG 133 ==
LOC: ER 18:26 → EDBD 18:26 → OVERFLOW 22:08 → TELE-CENTR 12-11 16:53
PROVIDERS: ADMIT Student in an Organized Health Care Education/Training Program; ATTEND Student in an Organized Health Care Education/Training Program
DX: J96.21 Acute and chronic respiratory failure with hypoxia (principal); J15.69 Pneumonia due to other Gram-negative bacteria; I11.0 Hypertensive heart disease with heart failure; J12.9 Viral pneumonia, unspecified; I50.9 Heart failure, unspecified; J15.9 Unspecified bacterial pneumonia; J44.0 Chronic obstructive pulmonary disease with (acute) lower respiratory infection; J44.1 Chronic obstructive pulmonary disease with (acute) exacerbation; Z20.822 Contact with and (suspected) exposure to COVID-19; E11.9 Type 2 diabetes mellitus without complications; J96.22 Acute and chronic respiratory failure with hypercapnia; E66.9 Obesity, unspecified; Z68.30 Body mass index [BMI] 30.0-30.9, adult; E78.5 Hyperlipidemia, unspecified; Z90.49 Acquired absence of other specified parts of digestive tract; Z79.82 Long term (current) use of aspirin; Z79.4 Long term (current) use of insulin; Z79.02 Long term (current) use of antithrombotics/antiplatelets
CPT/HCPCS: 36415; 36600; 71045; 80053; 82805; 82962; 83605; 83880; 84484; 85025; 86803; 87040; 87081; 87340; 87426; 87804; 94640; 96365; 96375; 99291; G0378; J1815; J3490

== ENCOUNTER 2025-04-04 12:43 | Inpatient (IN) | payer MEDICAID ==
[~2025-04-04] VITALS: Ht 160 cm; Wt 77.2 kg
[~2025-04-04 12:43] MED LIST changes: +ASPI-543 PO; +ATOR10TA52 PO; +FLUT1AER3 IN; -PRED20TA2 PO; +PRED30TA4 PO; +SITA50TA PO; -UMEC1AER IN
[2025-04-04 13:48] LABS: Hemoglobin 11.4 g/dL (12.2-16.2); Nucleated Red Blood Cells % 0.1 %
[2025-04-04 13:50] LABS: Hematocrit 38.3 % (36.0-46.0); Mean Corpuscular Hemoglobin 20.5 pg (28.0-32.0); Mean Corpuscular Volume 69.0 fL (80.0-100.0)
--- NOTE | 2025-04-04 13:51 | ED.PDOC ---
History of Present Illness HPI Comments 84 year old female with PMHx HTN, DM presents to the ED via EMS with a chief complaint of generalized weakness onset 2 days. Per EMS, patient has been experiencing generalized weakness for the past two days as well as shortness a breath. Upon EMS arrival patient was on home O2 2 L with a saturation of 94%, was placed on 4 L. Patient is a poor historian. Denies chest pain, dizziness, headache, nausea, vomiting, diarrhea, fever, chills, cough, cold, congestion, numbness/tingling, fall. No other symptoms or modifying factors present at this time. Chief Complaint: General Weakness Time Seen by MD: 13:30 Primary Care Provider: JUSTIN Reviewed Notes: Medications, Allergies Allergies: Coded Allergies: NO KNOWN ALLERGIES (Unverified , 12/11/24) Home Meds Active Scripts Hmcddpuvsce-Etpjhfjqccmy-Ipdim (Trelegy Ellipta 100-62.5-25 Mcg/INH) 1 Aer Aer, 1 AER IN DAILY for 20 Days, #1 AER 1 Refill Prov:BRANDY CROWELL RESDIENT 12/12/24 Azithromycin (Azithromycin) 500 Mg Tab, 1 TAB PO DAILY, #3 TAB Prov:BRANDY CROWELL RESDIENT 12/12/24 Prednisolone Sodium Phosphate (Prednisolone Sodium Phosp) 30 Mg Tab, 30 MG PO DAILY for 3 Days, #3 TAB Prov:BRANDY CROWELL RESDIENT 12/12/24 Ipratropium Kathleen (Ipratropium Kathleen) 0.02 % Adriane, 0.5 MG NEB Q4HR for 30 Days, #100 ML Prov:RADHA MCGUIRE RESIDENT 12/09/24 Levalbuterol HCl (Levalbuterol HCl) 1.25 Mg/3 Ml Neb, 1.25 MG NEB Q4HR for 30 Days, #1 INH Prov:RADHA MCGUIRE RESIDENT 12/09/24 Reported Medications Atorvastatin Calcium (ATORVASTATIN CALCIUM) 10 Mg Tab, 1 TAB PO HS, #30 TAB 5 Refills 12/11/24 Aspirin (Aspir-Low) 81 Mg Tab, 81 MG PO DAILY for 30 Days, MG 12/11/24 Sitagliptin Phosphate (Januvia) 50 Mg Tab, 25 MG PO DAILY, #30 TAB 5 Refills 12/11/24 Furosemide (Furosemide) 20 Mg Tab, 1 TAB PO DAILY for 100 Days, #100 12/06/24 Information Source: Patient, Emergency Med Personnel Mode of Arrival: EMS Severity: Moderate Timing: Days Duration: Since onset Prehospital treatment: Oxygen (4L) Past Medical History PAST MEDICAL HISTORY: Asthma, DM, HTN Surgical History: Cholecystectomy SAFETY COORDINATOR History: No Pertinent SAFETY COORDINATOR History Family History Family History: Reviewed,noncontributory to illness Social History Smoker: Non-Smoker Alcohol: Denies ETOH Use Drugs: Denies Drug Use Lives In: Home Constitutional: reports: weakness; denies: chills, diaphoresis, fatigue, fever, malaise, sweats, others EENTM: denies: blurred vision, double vision, ear bleeding, ear discharge, ear drainage, ear pain, ear ringing, eye pain, eye redness, hearing loss, mouth pain, mouth swelling, nasal discharge, nose bleeding, nose congestion, nose pain, photophobia, tearing, throat pain, throat swelling, voice changes, others Respiratory: reports: shortness of breath; denies: cough, hemoptysis, orthopnea, SOB at rest, SOB with excertion, stridor, wheezing, others Cardiovascular: denies: chest pain, dizzy spells, diaphoresis, Dyspnea on exertion, edema, irregular heart beat, left arm pain, lightheadedness, palpitations, PND, syncope, others Gastrointestinal: denies: abdomen distended, abdominal pain, blood streaked bowels, constipated, diarrhea, dysphagia, difficulty swallowing, hematemesis, melena, nausea, poor appetite, poor fluid intake, rectal bleeding, rectal pain, vomiting, others Genitourinary: denies: abnormal vagina bleeding, burning, dyspareunia, dysuria, flank pain, frequency, hematuria, incontinence, pain, , vagina discharge, urgency, others Neurological: denies: dizziness, fainting, headache, left sided numbness, left sided weakness, numbness, paresthesia, pre-existing deficit, right sided nu mbness, right sided weakness, seizure, speech problems, tingling, tremors, weakness, others Musculoskeletal: denies: back pain, gout, joint pain, joint swelling, muscle pain, muscle stiffness, neck pain, others Integumetry: denies: bruises, change in color, change in hair/nails, dryness, laceration, lesions, lumps, rash, wounds, others Allergic/Immunocompromised: denies: Difficulty Healing, Frequent Infections, Hives, Itching, others Hematologic/Lymphatic: denies: anemia, blood clots, easy bleeding, easy bruising, swollen glands, others Endocrine: denies: excessive hunger, excessive sweating, excessive thirst, excessive urination, flushing, intolerance to cold, intolerance to heat, unexplained weight gain, unexplained weight loss, others Psychiatric: denies: anxiety, bipolar disorder, depression, hopeless, panic disorder, schizophrenia, sleepless, suicidal, others All Other Systems: Reviewed and Negative Physical Exam General Appearance: Moderate Distress, Normal HEENT: Normal ENT Inspection, Pharynx Normal, TMs Normal Neck: Full Range of Motion, Non-Tender, Normal, Normal Inspection Respiratory: Chest Non-Tender, No Accessory Muscle Use, No Respiratory Distress, Other (Coarse breath sounds) Cardiovascular: No Edema, No JVD, No Murmur, No Gallop, Normal Peripheral Pulses, Regular Rate/Rhythm Breast Exam: Deferred Gastrointestinal: No Organomegaly, Non Tender, No Pulsatile Mass, Normal Bowel Sounds, Soft Genitalia: Deferred Pelvic: Deferred Rectal: Deferred Extremities: No calf tenderness, Normal capillary refill, Normal inspection, Normal range of motion, Non-tender, No pedal edema Musculoskeletal : Apperance: Normal Neurologic: Alert, air support control officer II-XII nml as Tested, No Motor Deficits, Normal Affect, Normal Mood, No Sensory Deficits Cerebellar Function: NOT DONE Reflexes: NOT DONE Skin: Dry, Normal Color, Warm Peripheral Pulses: 3+ Radial (R), 3+ Radial (L) Lymphatic: No Adenopathy Was a procedure done? Was a procedure done?: No EKG EKG : Pulse Rate (adult): 90 Cardiac Rhythm: NSR Differential Dx Considerations may include: COPD Electrolyte imbalance X-Ray, Labs, Meds, VS Vital Signs Date Time Temp Pulse Resp B/P (MAP) Pulse Ox O2 Delivery O2 Flow Rate FiO2 04/04/25 14:00 18 97 Nasal Cannula* 3 32 04/04/25 13:51 90 04/04/25 12:52 90 04/04/25 12:46 98.6 89 16 138/82 94 98.6 Lab Test 04/04/25 13:33 Range/Units White Blood Count 5.3 4.4-10.8 10^3/uL Red Blood Count 5.54 H 4.0-5.20 10^6/uL Hemoglobin 11.4 L 12.2-16.2 g/dL Hematocrit 38.3 36.0-46.0 % Mean Corpuscular Volume 69.0 L 80.0-100.0 fL Mean Corpuscular Hemoglobin 20.5 L 28.0-32.0 pg Mean Corpuscular Hemoglobin Concent 29.7 L 32.0-36.0 g/dL Red Cell Distribution Width 21.6 H 11.8-14.3 % Platelet Count 271 140-450 10^3/uL Mean Platelet Volume 8.2 6.9-10.8 fL Neutrophils (%) (Auto) 63.4 37.0-80.0 % Lymphocytes (%) (Auto) 22.7 10.0-50.0 % Monocytes (%) (Auto) 13.8 H 0.0-12.0 % Eosinophils (%) (Auto) 0.0 0.0-7.0 % Basophils (%) (Auto) 0.1 0.0-2.0 % Neutrophils # (Auto) 3.4 1.6-8.6 10 ^3/uL Lymphocytes # (Auto) 1.2 0.4-5.4 10 ^3/uL Monocytes # (Auto) 0.7 0-1.3 10 ^3/uL Eosinophils # (Auto) 0 0-0.8 10 ^3/uL Basophils # (Auto) 0 0-0.2 10 ^3/uL Nucleated Red Blood Cells 0.1 % Platelet Estimate Pending Sodium Level 144 136-145 mmol/L Potassium Level 4.3 3.5-5.1 mmol/L Chloride Level 96 L 98-107 mmol/L Carbon Dioxide Level 39 H 20-31 mmol/L Anion Gap 9 5-15 Blood Urea Nitrogen 12 9-23 mg/dL Creatinine 0.36 L 0.550-1.02 mg/dL Glomerular Filtration Rate Calc 101 >90 mL/min BUN/Creatinine Ratio 33.3 H 10.0-20.0 Serum Glucose 104 74-106 mg/dL Calcium Level 9.0 8.7-10.4 mg/dL Troponin I High Sensitivity 24 </=34 ng/L B-Type Natriuretic Peptide Pending Current Medications Medications (Trade) Dose Ordered Sig/Barney Route Start Time Stop Time Status Last Admin Albuterol (Ventolin Medneb) 5 mg ONCE ONCE NEB 04/04/25 13:45 04/04/25 13:47 DC 04/04/25 13:59 Patient alert. Complaining of generalized weakness. Vitals stable. Answering questions. Placed on oxygen. WBC within normal limits. Was given albuterol treatment. Cardiac marker within normal limits. Explained to the patient. Continue monitoring. Time of 1ST Reevaluation: 14:00 Reevaluation 1ST: Unchanged Patient Education/Counseling: Diagnosis, Treatment, Prognosis Family Education/Counseling: No Family Present SEPSIS Sepsis Screen Date sepsis recognized/suspect: Apr 04, 2025 Time Sepsis recognized/suspect: 1245 Recent Procedure: No On Antibiotic Therapy: No Respiratory Rate >20: No Heart Rate >90: No Temp<36 C (96.8 F) or >38.3 C: No SBP <90 or MAP <65 mmHG: No New Acute Mental Status Change: No Is the patient on CPAP, BIPAP,: No Physician Orders Complete Blood Count (04/04/25 13:24) Urinalysis (04/04/25 13:24) B-Type Natriuretic Peptide (04/04/25 13:45) Chest Portable (04/04/25 13:45) Rbc Morphology (04/04/25 13:33) Vital Signs Date Time Temp Pulse Resp B/P (MAP) Pulse Ox O2 Delivery O2 Flow Rate FiO2 04/04/25 14:00 18 97 Nasal Cannula* 3 32 04/04/25 13:51 90 04/04/25 12:52 90 04/04/25 12:46 98.6 89 16 138/82 94 98.6 Laboratory Tests Test 04/04/25 13:33 White Blood Count 5.3 10^3/uL (4.4-10.8) Medications Medications Dose Ordered Sig/Barney Route Start Time Stop Time Status Last Admin Dose Admin Albuterol 5 mg ONCE ONCE NEB 04/04/25 13:45 04/04/25 13:47 DC 04/04/25 13:59 Departure 1 Departure Time of Disposition: 14:34 Impression: Primary Impression: COPD exacerbation Disposition: 09 ADMITTED INPATIENT Admit to: Med Surg Condition: Guarded Critical Care Note Critical Care Time?: Yes (90 min-critical care time only) Stability Stability form required: No Heart Score Heart Score: Heart Score Response (Comments) Value History Slightly Suspicious 0 EKG Normal 0 Age >65 2 Risk Factors >3 or Hx ASHD 2 Troponin Normal limit 0 Total 4 I personally scribed for JET MENDEZ MD ([email or web address]) on 04/04/25 at 13:51. Electronically submitted by Radha Herndon ([email or web address]). JET MENDEZ MD Apr 04, 2025 13:51
[2025-04-04] MEDS: ALBUTEROL SULF 2.5 MG/0.5ML(0.5%) NEB SOLN NEB ONE (13:59)
[2025-04-04 14:01] LABS: Anion Gap 9 (5-15); Potassium 4.3 mmol/L (3.5-5.1); Sodium 144 mmol/L (136-145)
[2025-04-04 14:02] LABS: Calcium 9.0 mg/dL (8.7-10.4)
[2025-04-04 14:07] LABS: BUN/Creatinine Ratio 33.3 (10.0-20.0); Blood Urea Nitrogen 12 mg/dL (9-23); Glucose 104 mg/dL (74-106)
[2025-04-04 14:09] LABS: Carbon Dioxide 39 mmol/L (20-31); Chloride 96 mmol/L (98-107)
--- NOTE | 2025-04-04 14:25 | ECG ---
[facility] Test Date: 2025-04-04 Test Time: 12:52:26 Pat Name: TRINA FAY Department: ED Room: 0218 Gender: F Technical Intern: CYNTHIA : 1940 Requested By: EMERGENCY EMERGENCY Order Number: [id number] Reading MD: Chris Quintero Measurements Intervals [place] Rate: 90 P: 34 TX: 147 QRS: -22 QRSD: 79 T: -2 QT: 343 QTc: 420 Interpretive Statements Sinus rhythm Borderline left axis deviation Abnormal R-wave progression, late transition Borderline T abnormalities, diffuse leads Electronically Signed On 04-05-2025 17:47:49 PST by Chris Quintero Please click the below link to view image of tracing.
--- NOTE | 2025-04-04 14:30 | DVH ---
CLINICAL HISTORY: sob TECHNIQUE: Single view of the chest was obtained. COMPARISON: XY CHEST PORTABLE on DOS: 12/10/24, XY CHEST PORTABLE on DOS: 12/05/24, XY CHEST TWO VIEWS ROUTINE on DOS: 09/21/24, CHEST PORTABLE on DOS: 04/11/22, CXRP on DOS: 04/10/22 FINDINGS: The heart size is mildly enlarged with pulmonary vascular congestion. There are bibasilar opacities. IMPRESSION: Pulmonary vascular congestion. Bibasilar opacities, favor small pleural effusion/atelectasis.
[2025-04-04 14:38] LABS: Ovalocytes FEW; Stomatocytes Few
[2025-04-04] MEDS: methylPREDNISolone SOD SUCC 125 MG/2 ML VL IV ONE (17:00)
[2025-04-04] MEDS ORDERED: ACETAMINOPHEN 325 MG TAB PO PRN (19:45)
[2025-04-04] MEDS ORDERED: ONDANSETRON HCL 4 MG/2 ML VIAL IV PRN (19:45)
[2025-04-04] MEDS ORDERED: ALBUTEROL SULF 2.5 MG/0.5ML(0.5%) NEB SOLN NEB PRN (19:45)
[2025-04-04] MEDS ORDERED: DEXTROSE (50%) 50ML SYRG IV PRN (19:45)
[2025-04-04 20:15] VITALS: BP 126/64; PULSE 99; RESP 18; TEMP 98.6; O2SAT 92; O2SAT 93
[2025-04-04 20:19] LABS: Urine Protein, UAD TRACE (Negative)
[2025-04-04 21:26] VITALS: BP 120/84; PULSE 87; RESP 16; TEMP 98.9; O2SAT 91
[2025-04-04] MEDS: ACCU-CHEK COMFORT CURVE STRIP VI SCH (22:21)
[2025-04-04] MEDS: ATORVASTATIN 20 MG TAB PO SCH (22:21)
[2025-04-04] MEDS: InsuLIN REG 1unit/0.01ml Soln (100units/ml) SC SCH (22:25)
[2025-04-04] MEDS: AZITHROMYCIN 500MG/250ML 250 ML IV ONE (22:59)
[2025-04-05] VITALS (10 sets, daily range): BP systolic 119–149; BP diastolic 64–81; PULSE 54–106; RESP 16–18; TEMP 97.2–98.1; O2SAT 90–99
--- NOTE | 2025-04-05 00:55 | DVHHP2 ---
History of Present Illness Reason for Visit: Shortness for breath History of Present Illness 84-year-old female presents for evaluation of shortness for breath. Patient reports a two day history of worsening shortness for breath not being relieved for after inhaler and nebulizer. She also states having a nonproductive cough. Reports having to use 4 L of nasal cannula oxygen at home. No chest pain or palpitations. No other acute complaints. Past Medical History Hypertension, COPD, diabetes mellitus, asthma Past Surgical History Cholecystectomy Family History Noncontributory Smoke: No ALCOHOL: none Drugs: None Lives: with Family Review of Systems Review of Systems Review of systems are currently negative otherwise addressed in HPI. Allergies: Coded Allergies: NO KNOWN ALLERGIES (Unverified , 12/11/24) Medications Current Medications Medications Dose Ordered Sig/Barney Route Start Time Stop Time Status Last Admin Dose Admin Albuterol 2.5 mg Q6HPRN PRN NEB 04/04/25 19:45 Ceftriaxone Sodium 50 ml @ 100 mls/hr DAILY@09 IV 04/05/25 09:00 Azithromycin 250 ml @ 125 mls/hr DAILY IV 04/05/25 10:00 Aspirin 325 mg DAILY PO 04/05/25 10:00 Atorvastatin Calcium 10 mg HS PO 04/04/25 22:00 04/04/25 22:21 10 MG Furosemide 20 mg DAILY PO 04/05/25 10:00 Diagnostic Test (Pha) 1 strip ACHS 04/04/25 22:00 04/04/25 22:21 1 STRIP Insulin Human Regular ACHS SC 04/04/25 22:00 04/04/25 22:25 2 UNITS Dextrose 50 ml UD PRN IV 04/04/25 19:45 Ondansetron HCl 4 mg Q4HP PRN IV 04/04/25 19:45 Enoxaparin Sodium 40 mg DAILY SC 04/05/25 10:00 Acetaminophen 650 mg Q6HP PRN PO 04/04/25 19:45 Exam Vital Signs Vital Signs Date Time Temp Pulse Resp B/P (MAP) Pulse Ox O2 Delivery O2 Flow Rate FiO2 04/04/25 21:26 98.9 87 16 120/84 (96) 91 98.9 04/04/25 21:26 Nasal Cannula* 4 36 Exam Gen: 84-year-old female in mild distress. Skin: Warm, dry, normal color and texture, no rash. HEENT: Normocephalic atraumatic, mucous membranes moist and pink. Neck: Cervical and supraclavicular nodes normal without enlargement, trachea is midline, thyroid gland is normal without masses. Pulmonary: Clear to auscultation and percussion bilaterally. Cardiac: Regular rate and rhythm. No murmur Abdomen: Soft, nontender, nondistended, bowel sounds present all 4 quadrants, no guarding, no rigidity, no organomegaly. Extremities: No cyanosis, clubbing, no edema Neuro: Cranial nerves II through XII grossly intact, normal affect and speech, no focal motor deficits. Labs/Xrays ORDERING PHYSICIAN: RENETTA BENDER RESIDENT PROCEDURE(s): ECIDC - ECHO 2D MODE CARDIAC DOP REASON: SHORTNESS OF BREATH ORDER NUMBER(s): [id number], ACCESSION NUMBER(s): [id number] APPROVED REPORT EXAM: Two-dimensional and M-mode echocardiogram with Doppler and color Doppler. Blood Pressure: 125/58 mmHg INDICATION shortness of breath RISK FACTORS Height: 5'3, Weight: 160 DIMENSIONS LVDd 4.4 (3.8-5.7cm) LA (2D) 3.6 (1.9-4.0cm) Aortic Root 3.0 (2.0- 3.7cm) LVDs 2.9 (2.5-4.0cm) LA (MM) (1.9-4.0cm) Aortic Cusp Exc 1.6 (1.5- 2.0cm) EF (%) 60.0 (55-70%) Rt. Atrium 4.5 (1.9-4.0cm) Asc. Aorta 3.3 cm IVSd 1.0 (0.7-1.1cm) RV (D) (1.8-2.4cm) PWd 0.8 (0.7-1.1cm) Mitral Valve Mitral Mitral Stenosis E wave 0.93m/s MV Mean GR. mmHg A wave 1.49m/s MV Peak GR. mmHg E/A ratio 0.6 2D MVA cm2 DECEL Time 185ms PRESS 1/2 Time ms Aortic Valve Aortic Valve Aortic Stenosis V1 1.45m/s AO Mean GR. 8mmHg V2 1.85m/s AO Peak GR. 14mmHg LVOT Diameter 2.2 (1.8-2.4cm) Doppler BARBRA 2.98cm2 Pulmonic Valve V2 1.01m/s Tricuspid Valve TR Velocity 3.65m/s RVSP 68mmHg Conclusion Technically good study. Sinus rhythm. Biatrial enlargement, mild concentric LVH. Mild aortic root enlargement Mild aortic sclerosis, mild mitral annular calcification. Left ventricular systolic performance is preserved at 60% with normal RV function. There is doming of the interventricular septum in systole and d iastole consistent with a pressure/volume overload and pulmonary hypertension. Severe tricuspid regurgitation with a pulmonary artery systolic pressure of 70 mmHg consistent with severe pulmonary hypertension No pericardial effusion, masses or vegetations. SIGNED BY: LORIE QURESHI Sr., MD SIGNED DATE/TIME: 12/07/241934 ORDERING PHYSICIAN: JET MENDEZ MD PROCEDURE(s): CXRP - CHEST PORTABLE REASON: sob ORDER NUMBER(s): [id number], ACCESSION NUMBER(s): [id number] CLINICAL HISTORY: sob TECHNIQUE: Single view of the chest was obtained. COMPARISON: XY CHEST PORTABLE on DOS: 12/10/24, XY CHEST PORTABLE on DOS: 12/05/24, XY CHEST TWO VIEWS ROUTINE on DOS: 09/21/24, CHEST PORTABLE on DOS: 04/11/22, CXRP on DOS: 04/10/22 FINDINGS: The heart size is mildly enlarged with pulmonary vascular congestion. There are bibasilar opacities. IMPRESSION: Pulmonary vascular congestion. Bibasilar opacities, favor small pleural effusion/atelectasis. Labs Test 04/04/25 22:13 04/04/25 20:06 04/04/25 13:33 Range/Units POC Glucose 144 H 70-106 mg/dl Urine Color Yellow Yellow Urine Clarity Clear Clear Urine pH 6.5 5.0-9.0 Urine Specific [place] 1.033 1.001-1.035 Urine Protein Trace H Negative Urine Ketones 1+ H Negative Urine Blood Negative Negative /uL Urine Nitrite Negative Negative Urine Bilirubin Negative Negative Urine Urobilinogen 3 H Negative mg/dL Urine Leukocyte Esterase Negative Negative /uL Urine RBC 1 0 - 4 /hpf Urine Microscopic WBC 1 0-5 /HPF Urine Squamous Epithelial Cells Few <5 /hpf Urine Bacteria None seen None Seen /hpf Urine Glucose 4+ H Normal mg/dL White Blood Count 5.3 4.4-10.8 10^3/uL Red Blood Count 5.54 H 4.0-5.20 10^6/uL Hemoglobin 11.4 L 12.2-16.2 g/dL Hematocrit 38.3 36.0-46.0 % Mean Corpuscular Volume 69.0 L 80.0-100.0 fL Mean Corpuscular Hemoglobin 20.5 L 28.0-32.0 pg Mean Corpuscular Hemoglobin Concent 29.7 L 32.0-36.0 g/dL Red Cell Distribution Width 21.6 H 11.8-14.3 % Platelet Count 271 140-450 10^3/uL Mean Platelet Volume 8.2 6.9-10.8 fL Neutrophils (%) (Auto) 63.4 37.0-80.0 % Lymphocytes (%) (Auto) 22.7 10.0-50.0 % Monocytes (%) (Auto) 13.8 H 0.0-12.0 % Eosinophils (%) (Auto) 0.0 0.0-7.0 % Basophils (%) (Auto) 0.1 0.0-2.0 % Neutrophils # (Auto) 3.4 1.6-8.6 10 ^3/uL Lymphocytes # (Auto) 1.2 0.4-5.4 10 ^3/uL Monocytes # (Auto) 0.7 0-1.3 10 ^3/uL Eosinophils # (Auto) 0 0-0.8 10 ^3/uL Basophils # (Auto) 0 0-0.2 10 ^3/uL Nucleated Red Blood Cells 0.1 % Platelet Estimate Adequate Hypochromasia (manual) Marked Poikilocytosis (manual) Slight Microcytosis Marked Ovalocytes Few Stomatocytes Few Sodium Level 144 136-145 mmol/L Potassium Level 4.3 3.5-5.1 mmol/L Chloride Level 96 L 98-107 mmol/L Carbon Dioxide Level 39 H 20-31 mmol/L Anion Gap 9 5-15 Blood Urea Nitrogen 12 9-23 mg/dL Creatinine 0.36 L 0.550-1.02 mg/dL Glomerular Filtration Rate Calc 101 >90 mL/min BUN/Creatinine Ratio 33.3 H 10.0-20.0 Serum Glucose 104 74-106 mg/dL Calcium Level 9.0 8.7-10.4 mg/dL Troponin I High Sensitivity 24 </=34 ng/L B-Type Natriuretic Peptide 143.37 0-100 pg/mL SEPSIS Sepsis Screen Date sepsis recognized/suspect: Apr 04, 2025 Time Sepsis recognized/suspect: 1245 Recent Procedure: No On Antibiotic Therapy: No Respiratory Rate >20: No Heart Rate >90: No Temp<36 C (96.8 F) or >38.3 C: No SBP <90 or MAP <65 mmHG: No New Acute Mental Status Change: No Is the patient on CPAP, BIPAP,: No Physician Orders Albuterol Medneb (Ventolin Medneb) (04/04/25 19:45) Ceftriaxone 1gm/50ml (Rocephin) (04/05/25 09:00) Azithromycin 500mg/250ml (Zithromax 500m (04/05/25 10:00) Aspirin Tablet (04/05/25 10:00) Atorvastatin (Lipitor) (04/04/25 22:00) Furosemide Tablet (Lasix Tablet) (04/05/25 10:00) Basic Metabolic Panel (04/05/25 04:00) Glucose Blood (Accu-Chek Comfort Curve T (04/04/25 22:00) Insulin R (Human) (Insulin R) (04/04/25 22:00) Dextrose 50% Syringe (04/04/25 19:45) Admit (04/04/25 19:40) Ondansetron Hcl (Zofran) (04/04/25 19:45) Enoxaparin Sodium (Lovenox) (04/05/25 10:00) Cardiac Diet-2gna,Lofat,Lochol (04/05/25 Breakfast) Condition: Stable (04/04/25 19:40) Acetaminophen Tablet (Tylenol Tablet) (04/04/25 19:45) Bedrest With Bathroom Privileg (04/04/25 19:40) Vital Signs Date Time Temp Pulse Resp B/P (MAP) Pulse Ox O2 Delivery O2 Flow Rate FiO2 04/04/25 21:26 98.9 87 16 120/84 (96) 91 98.9 04/04/25 21:26 98.9 87 16 120/84 (96) 91 98.9 04/04/25 21:26 Nasal Cannula* 4 36 04/04/25 20:15 93 Nasal Cannula 4.0 04/04/25 20:15 93 Nasal Cannula* 4 36 04/04/25 20:15 92 Nasal Cannula 4.0 04/04/25 20:15 92 Nasal Cannula* 4 36 04/04/25 20:15 98.6 99 18 126/64 93 4.0 98.6 04/04/25 18:35 98.6 74 16 126/64 (84) 95 98.6 Laboratory Tests Test 04/04/25 13:33 White Blood Count 5.3 10^3/uL (4.4-10.8) Medications Medications Dose Ordered Sig/Barney Route Start Time Stop Time Status Last Admin Dose Admin Albuterol 5 mg ONCE ONCE NEB 04/04/25 13:45 04/04/25 13:47 DC 04/04/25 13:59 5 MG Atorvastatin Calcium 10 mg HS PO 04/04/25 22:00 04/04/25 22:21 10 MG Azithromycin 250 ml @ 125 mls/hr ONCE ONCE IV 04/04/25 19:45 04/04/25 21:44 DC 04/04/25 22:59 125 MLS/HR Ceftriaxone Sodium 50 ml @ 100 mls/hr ONCE ONCE IV 04/04/25 19:45 04/04/25 20:14 DC 04/04/25 22:07 100 MLS/HR Diagnostic Test (Pha) 1 strip ACHS 04/04/25 22:00 04/04/25 22:21 1 STRIP Insulin Human Regular ACHS SC 04/04/25 22:00 04/04/25 22:25 2 UNITS Methylprednisolone Sodium Succinate 125 mg ONCE ONCE IV 04/04/25 13:45 04/04/25 13:47 DC 04/04/25 17:00 125 MG Assessment/Plan Assessment/Plan Assessment Acute on chronic respiratory failure COPD exacerbation Questionable pneumonia Attention Plan Admit the patient to Med surge to the hospitalist Med nebs Rocephin/azithromycin Resume home medications Continue treatment per orders. Plan discussed with: Patient My Orders Orders - TAPIA,MARLEE AGACNP Procedure Category Date Status Time Albuterol Medneb PHA 04/04/25 In Process (Ventolin Medneb) 19:45 Ceftriaxone 1gm/50ml PHA 04/05/25 In Process (Rocephin) 09:00 Azithromycin PHA 04/05/25 In Process 500mg/250ml 10:00 Aspirin Tablet PHA 04/05/25 In Process 10:00 Atorvastatin (Lipitor) PHA 04/04/25 In Process 22:00 Furosemide Tablet PHA 04/05/25 In Process (Lasix Tablet) 10:00 Basic Metabolic Panel LAB 04/05/25 Logged 04:00 Glucose Blood PHA 04/04/25 In Process (Accu-Chek Comfort 22:00 Insulin R (Human) PHA 04/04/25 In Process (Insulin R) 22:00 Dextrose 50% Syringe PHA 04/04/25 In Process 19:45 Admit ADMIT 04/04/25 Transmitted 19:40 Ondansetron Hcl PHA 04/04/25 In Process (Zofran) 19:45 Enoxaparin Sodium PHA 04/05/25 In Process (Lovenox) 10:00 Cardiac DIET 04/05/25 Transmitted Diet-2gna,Lofat,Lochol Breakfast Condition: Stable EVI 04/04/25 In Process 19:40 Acetaminophen Tablet PHA 04/04/25 In Process (Tylenol Tablet) 19:45 Bedrest With Bathroom EVI 04/04/25 In Process Privileg 19:40 Date of Service: Apr 04, 2025 Billing Provider: KELLY TAPIA Common Visit Codes: [id number] INP/OBS CARE (HIGH) KELLY TAPIA Apr 05, 2025 00:55
[2025-04-05 06:18] LABS: Anion Gap 7 (5-15); Potassium 4.9 mmol/L (3.5-5.1); Sodium 142 mmol/L (136-145)
[2025-04-05 06:19] LABS: Calcium 9.4 mg/dL (8.7-10.4); Chloride 95 mmol/L (98-107)
[2025-04-05 06:21] LABS: Carbon Dioxide 40 mmol/L (20-31)
[2025-04-05 06:24] LABS: BUN/Creatinine Ratio 26.1 (10.0-20.0); Blood Urea Nitrogen 12 mg/dL (9-23)
[2025-04-05 06:27] LABS: Glucose 142 mg/dL (74-106)
[2025-04-05] MEDS: FUROSEMIDE 20 MG TAB PO SCH (09:10)
[2025-04-05] MEDS: ENOXAPARIN SOD 40 MG/0.4 ML SYRINGE SC SCH (09:10)
[2025-04-05] MEDS: AZITHROMYCIN 500MG/250ML 250 ML IV SCH (09:57)
[2025-04-05] MEDS ORDERED: IPRATROPIUM BROM 0.5 MG/2.5ML INH SOL NEB PRN (15:15)
[2025-04-05] MEDS ORDERED: ALBUTEROL SULF 2.5 MG/0.5ML(0.5%) NEB SOLN NEB PRN (15:15)
[2025-04-05] MEDS: FUROSEMIDE 20 MG/2 ML VIAL IV ONE (16:15)
[2025-04-05] MEDS: methylPREDNISolone SOD SUCC 125 MG/2 ML VL IV ONE (16:15)
[2025-04-05] MEDS: methylPREDNISolone SOD SUCC 40 MG/ML VL IV SCH (21:34)
[2025-04-06] VITALS (10 sets, daily range): BP systolic 117–134; BP diastolic 61–70; PULSE 79–97; RESP 17–20; TEMP 97.7–98.3; O2SAT 92–98
[2025-04-06 06:47] LABS: Potassium 4.1 mmol/L (3.5-5.1); Sodium 143 mmol/L (136-145)
[2025-04-06 06:49] LABS: Calcium 9.1 mg/dL (8.7-10.4)
[2025-04-06 06:54] LABS: BUN/Creatinine Ratio 51.2 (10.0-20.0); Blood Urea Nitrogen 21 mg/dL (9-23); Magnesium 2.1 mg/dL (1.6-2.6)
[2025-04-06 07:00] LABS: Chloride 94 mmol/L (98-107)
[2025-04-06 07:01] LABS: Anion Gap 8.99999 (5-15); Glucose 127 mg/dL (74-106)
[2025-04-06 07:04] LABS: Carbon Dioxide > 40 mmol/L (20-31)
[2025-04-06] MEDS: FUROSEMIDE 20 MG/2 ML VIAL IV SCH ×2 (09:11→17:25)
--- NOTE | 2025-04-06 13:09 | DVHPN2 ---
Subjective Still symptomatic with shortness of breaths and coughing up clear sputum Still has edema in her legs 1+ bilaterally Changes from previous H/P or p: Changes Objective Vitals Vital Signs Date Time Temp Pulse Resp B/P (MAP) Pulse Ox O2 Delivery O2 Flow Rate FiO2 04/06/25 09:11 130/63 04/06/25 08:00 79 96 Nasal Cannula* 3 32 04/06/25 05:00 98.3 17 98.3 Intake/Output Intake and Output 04/06/25 07:00 Intake Total 820 ml Balance 820 ml Intake Oral 520 ml IV Total 300 ml # Voids 4 General Appearance: Alert, Oriented X3, Cooperative Lungs: Other (Bilateral rhonchi) Cardiovascular: Regular rate, Normal S1, Normal S2 Abdomen: Normal bowel sounds, Soft, No tenderness Extremities: Other (2+ edema bilaterally) Medications Current Medications Medications Dose Ordered Sig/Barney Route Start Time Stop Time Status Last Admin Dose Admin Albuterol 2.5 mg Q6HPRN PRN NEB 04/04/25 19:45 Ceftriaxone Sodium 50 ml @ 100 mls/hr DAILY@09 IV 04/05/25 09:00 04/06/25 09:11 100 MLS/HR Azithromycin 250 ml @ 125 mls/hr DAILY IV 04/05/25 10:00 04/06/25 10:28 125 MLS/HR Aspirin 325 mg DAILY PO 04/05/25 10:00 04/06/25 09:11 325 MG Atorvastatin Calcium 10 mg HS PO 04/04/25 22:00 04/05/25 21:34 10 MG Diagnostic Test (Pha) 1 strip ACHS 04/04/25 22:00 04/06/25 12:17 1 STRIP Insulin Human Regular ACHS SC 04/04/25 22:00 04/06/25 12:15 4 UNITS Dextrose 50 ml UD PRN IV 04/04/25 19:45 Ondansetron HCl 4 mg Q4HP PRN IV 04/04/25 19:45 Enoxaparin Sodium 40 mg DAILY SC 04/05/25 10:00 04/06/25 09:12 40 MG Acetaminophen 650 mg Q6HP PRN PO 04/04/25 19:45 Furosemide 20 mg DAILY IV 04/06/25 10:00 04/06/25 09:11 20 MG Methylprednisolone Sodium Succinate 40 mg BID IV 04/05/25 22:00 04/06/25 09:15 40 MG Albuterol 2.5 mg Q4HPRN PRN NEB 04/05/25 15:15 Ipratropium [place] 0.5 mg Q4HPRN PRN NEB 04/05/25 15:15 Laboratory Results Laboratory Tests 04/04/25 13:33 04/06/25 05:30 Chemistry Test 04/06/25 05:30 Calcium Level 9.1 mg/dL (8.7-10.4) Magnesium Level 2.1 mg/dL (1.6-2.6) Urinalysis Test 04/04/25 20:06 Urine Color Yellow (Yellow) Urine Clarity Clear (Clear) Urine pH 6.5 (5.0-9.0) Urine Specific [place] 1.033 (1.001-1.035) Urine Protein Trace (Negative) H Urine Ketones 1+ (Negative) H Urine Blood Negative /uL (Negative) Urine Nitrite Negative (Negative) Urine Bilirubin Negative (Negative) Urine Urobilinogen 3 mg/dL (Negative) H Urine Leukocyte Esterase Negative /uL (Negative) Urine RBC 1 /hpf (0 - 4) Urine Microscopic WBC 1 /HPF (0-5) Urine Squamous Epithelial Cells Few /hpf (<5) Urine Bacteria None seen /hpf (None Seen) Urine Glucose 4+ mg/dL (Normal) H Assessment/Plan Assessment/Plan Acute on chronic hypoxic respiratory failure Acute on chronic heart failure with preserved ejection fraction Hypoxia COPD COPD exacerbation Plan Increase Lasix to twice a day IV steroids IV antibiotics Oxygen as needed Med neb treatments as needed Monitor closely Advance directives discussed for 15 minutes Full code Discussed with the family at the bedside Plan discussed with: Patient, Spouse, Son My Orders Orders - NICOLETTE SILVA MD Procedure Category Date Status Time Furosemide Injection PHA 04/06/25 In Process (Lasix Injection) 10:00 Methylprednisolone PHA 04/05/25 In Process Sod Succ (Solu Medrol 22:00 Albuterol Medneb PHA 04/05/25 In Process (Ventolin Medneb) 15:15 Ipratropium Medneb PHA 04/05/25 In Process (Atrovent Medneb) 15:15 Date of Service: Apr 06, 2025 Billing Provider: NICOLETTE SILVA MD Common Visit Codes: 99208-[id number] INP/OBS CARE(HIGH) NICOLETTE SILVA MD Apr 06, 2025 13:09
[2025-04-07] MEDS: MELATONIN 5 MG TAB PO ONE (00:30)
[2025-04-07 07:43] LABS: Potassium 3.7 mmol/L (3.5-5.1); Sodium 145 mmol/L (136-145)
[2025-04-07 07:44] LABS: Calcium 9.2 mg/dL (8.7-10.4)
[2025-04-07 07:49] LABS: Glucose 97 mg/dL (74-106)
[2025-04-07 07:50] LABS: Magnesium 2.0 mg/dL (1.6-2.6)
[2025-04-07 07:53] LABS: Blood Urea Nitrogen 27 mg/dL (9-23)
[2025-04-07 07:57] LABS: Chloride 92 mmol/L (98-107)
[2025-04-07 07:58] LABS: Anion Gap 12.99999 (5-15); BUN/Creatinine Ratio 58.7 (10.0-20.0); Carbon Dioxide > 40 mmol/L (20-31)
[2025-04-07 08:00] VITALS: PULSE 66; RESP 18; O2SAT 99
[2025-04-07 08:50] VITALS: O2SAT 98
[2025-04-07 09:07] VITALS: BP 118/62; PULSE 64; RESP 18; TEMP 97.2; O2SAT 99
[2025-04-07] MEDS ORDERED: FURO1TAB33 PO (11:54)
[2025-04-07] MEDS ORDERED: AZITTAB PO (11:54)
[2025-04-07] MEDS ORDERED: METH4PAK PO (11:54)
--- NOTE | 2025-04-07 11:56 | DVHDS2 ---
Discharge Summary Date of Admission Apr 04, 2025 at 19:40 Date of Discharge: Apr 07, 2025 Labs/Diagnostic Data: Laboratory Results Test 04/07/25 06:19 04/07/25 06:02 04/04/25 20:06 04/04/25 13:33 POC Glucose 107 mg/dl (70-106) Sodium Level 145 mmol/L (136-145) Potassium Level 3.7 mmol/L (3.5-5.1) Chloride Level 92 mmol/L (98-107) Carbon Dioxide Level > 40 mmol/L (20-31) Anion Gap 12.59475 (5-15) Blood Urea Nitrogen 27 mg/dL (9-23) Creatinine 0.46 mg/dL (0.550-1.02) Glomerular Filtration Rate Calc 95 mL/min (>90) BUN/Creatinine Ratio 58.7 (10.0-20.0) Serum Glucose 97 mg/dL (74-106) Calcium Level 9.2 mg/dL (8.7-10.4) Magnesium Level 2.0 mg/dL (1.6-2.6) Urine Color Yellow (Yellow) Urine Clarity Clear (Clear) Urine pH 6.5 (5.0-9.0) Urine Specific [place] 1.033 (1.001-1.035) Urine Protein Trace (Negative) Urine Ketones 1+ (Negative) Urine Blood Negative /uL (Negative) Urine Nitrite Negative (Negative) Urine Bilirubin Negative (Negative) Urine Urobilinogen 3 mg/dL (Negative) Urine Leukocyte Esterase Negative /uL (Negative) Urine RBC 1 /hpf (0 - 4) Urine Microscopic WBC 1 /HPF (0-5) Urine Squamous Epithelial Cells Few /hpf (<5) Urine Bacteria None seen /hpf (None Seen) Urine Glucose 4+ mg/dL (Normal) White Blood Count 5.3 10^3/uL (4.4-10.8) Red Blood Count 5.54 10^6/uL (4.0-5.20) Hemoglobin 11.4 g/dL (12.2-16.2) Hematocrit 38.3 % (36.0-46.0) Mean Corpuscular Volume 69.0 fL (80.0-100.0) Mean Corpuscular Hemoglobin 20.5 pg (28.0-32.0) Mean Corpuscular Hemoglobin Concent 29.7 g/dL (32.0-36.0) Red Cell Distribution Width 21.6 % (11.8-14.3) Platelet Count 271 10^3/uL (140-450) Mean Platelet Volume 8.2 fL (6.9-10.8) Neutrophils (%) (Auto) 63.4 % (37.0-80.0) Lymphocytes (%) (Auto) 22.7 % (10.0-50.0) Monocytes (%) (Auto) 13.8 % (0.0-12.0) Eosinophils (%) (Auto) 0.0 % (0.0-7.0) Basophils (%) (Auto) 0.1 % (0.0-2.0) Neutrophils # (Auto) 3.4 10 ^3/uL (1.6-8.6) Lymphocytes # (Auto) 1.2 10 ^3/uL (0.4-5.4) Monocytes # (Auto) 0.7 10 ^3/uL (0-1.3) Eosinophils # (Auto) 0 10 ^3/uL (0-0.8) Basophils # (Auto) 0 10 ^3/uL (0-0.2) Nucleated Red Blood Cells 0.1 % Platelet Estimate Adequate Hypochromasia (manual) Marked Poikilocytosis (manual) Slight Microcytosis Marked Ovalocytes Few Stomatocytes Few Troponin I High Sensitivity 24 ng/L (</=34) B-Type Natriuretic Peptide 143.37 pg/mL (0-100) Other Laboratory Tests 04/07/25 06:02 04/04/25 13:33 Brief Hx & Hospital Course: Final diagnoses: Acute on chronic hypoxic respiratory failure Acute on chronic heart failure with preserved ejection fraction Hypoxia COPD COPD exacerbation She was given IV Lasix IV steroids Med nebs O2 She feels better She has home O2 DC home on Z-Vic, prednisone and Lasix Condition at Discharge: Stable Final Diagnosis/Problems List Acute on chronic hypoxic respiratory failure Acute on chronic heart failure with preserved ejection fraction Hypoxia COPD COPD exacerbation Discharge Disposition: Home SNF Discharge Will this Physician continue t: No Discharge Instruct/Medications Diet: Cardiac 2g Na,low cholest Activity: No Restrictions, As Tolerated Follow Up/Referral: PCP BILL Medications: Z-Vic Lasix Medrol Dose Pack Scheduled Azithromycin (Zithromax Z-Vic), 250 MG PO UD Furosemide (Lasix), 1 TAB PO DAILY Methylprednisolone (Medrol Dosepak), 4 MG PO UD Discontinued Medications Aspirin (Aspir-Low), 81 MG PO DAILY, (Reported) Atorvastatin Calcium (Atorvastatin Calcium), 1 TAB PO HS, (Reported) Furosemide (Furosemide), 1 TAB PO DAILY, (Reported) Sitagliptin Phosphate (Januvia), 25 MG PO DAILY, (Reported) Discharge Statement: "Patient was advised to return to the ER or call 911 if any headaches, dizziness, shortness of breath, chest pain, abdominal pain, bleeding, fevers, or worsening of medical condition. Patient was counseled about treatment plan, medications, possible side effects, patientverbalized understanding. All questions were answered to the best of my ability. This discharge took greater then 30 minutes in planning, reviewing documentation, counseling the patient, and discussing with other team members." ASSESSMENT ASSESSMENT Assessment Acute on chronic hypoxic respiratory failure Acute on chronic heart failure with preserved ejection fraction Hypoxia COPD COPD exacerbation Date of Service: Apr 07, 2025 Billing Provider: NICOLETTE SILVA MD Common Visit Codes: 55055-XDQ/OBS DISCH DAY >30min NICOLETTE SILVA MD Apr 07, 2025 11:56
[2025-04-07 12:56] VITALS: BP 129/68; PULSE 72; RESP 18; TEMP 97.3; O2SAT 94
[2025-04-07 13:51] VITALS: BP 118/62; PULSE 66; RESP 18; TEMP 97.2; O2SAT 99
== END 2025-04-07 14:47 | disposition home or self-care (01) | DRG 140 ==
LOC: ER 12:43 → EDBD 12:43 → OVERFLOW 19:40 → CENTRAL 21:25
PROVIDERS: ADMIT Internal Medicine Geriatric Medicine; ATTEND Internal Medicine Geriatric Medicine
DX: J44.1 Chronic obstructive pulmonary disease with (acute) exacerbation (principal); J96.21 Acute and chronic respiratory failure with hypoxia; I50.33 Acute on chronic diastolic (congestive) heart failure; I11.0 Hypertensive heart disease with heart failure; Z79.2 Long term (current) use of antibiotics; Z79.899 Other long term (current) drug therapy; Z90.49 Acquired absence of other specified parts of digestive tract
CPT/HCPCS: 36415; 71045; 80048; 81001; 82962; 83735; 83880; 84484; 85025; 93005; 94640; 96365; 96375; 99291; 99292; G0378; J1815

== ENCOUNTER 2025-04-11 11:10 | Inpatient (IN) | payer MEDICAID ==
[2025-04-11] VITALS (7 sets, daily range): BP systolic 124–126; BP diastolic 57–72; PULSE 67–70; RESP 13–19; TEMP 98–98.1; O2SAT 95–96
[~2025-04-11] VITALS: Ht 160 cm; Wt 73.4 kg
[~2025-04-11 11:10] MED LIST changes: -ASPI-543 PO; -ATOR10TA52 PO; -AZIT500T66 PO; +AZITTAB PO; -FLUT1AER3 IN; +FURO1TAB33 PO; -FURO20TA4 PO; -IPR002IS NEB; -LEVA1.2518 NEB; +METH4PAK PO; -PRED30TA4 PO; -SITA50TA PO
--- NOTE | 2025-04-11 12:23 | ED.PDOC ---
SOB-HPI HPI Comments 84 year old female with PMHx COPD, asthma, HTN presents to the ED with a chief complaint of shortness of breath onset 2 days. Patient states she was discharged from [facility], [facility] on 04/07/25 with diagnosis COPD exacerbation, with a prescription for antibiotics. She went to follow up clinic this morning, was sent to ED due to shortness of breath. Patient is normally on 2L NC, was on 4L O2 with sat of 60- 70s. Upon ED arrival she was placed on 6L, O2 sat improved to 98%. Denies chest pain, dizziness, fever, chills, nausea, vomiting, dysuria, hematuria. No other symptoms or modifying factors present at this time. Chief Complaint: Shortness of Breath Time Seen by MD: 12:10 Primary Care Provider: JUSTIN Joe notes: Medications, Allergies Information Source: Patient, Relative Mode of Arrival: Wheelchair Severity: Moderate Timing: Days Duration: Since onset Context: At Rest PE Risk Factors: None History of: Asthma, COPD, Recent URI Prehospital treatment: Oxygen Modifying Factors: Nothing Associated Signs and Symptoms: Cough If cough with SOB: Productive Past Medical History PAST MEDICAL HISTORY: Asthma, COPD, DM, HTN Surgical History: Cholecystectomy URGENT CARE PHYSICIAN History: No Pertinent URGENT CARE PHYSICIAN History Family History Family History: Reviewed,noncontributory to illness Social History Smoker: Non-Smoker Alcohol: Denies ETOH Use Drugs: Denies Drug Use Lives In: Home Constitutional: denies: chills, diaphoresis, fatigue, fever, malaise, sweats, weakness, others EENTM: denies: blurred vision, double vision, ear bleeding, ear discharge, ear drainage, ear pain, ear ringing, eye pain, eye redness, hearing loss, mouth pain, mouth swelling, nasal discharge, nose bleeding, nose congestion, nose pain, photophobia, tearing, throat pain, throat swelling, voice changes, others Respiratory: reports: cough, shortness of breath; denies: hemoptysis, orthopnea, SOB at rest, SOB with excertion, stridor, wheezing, others Cardiovascular: denies: chest pain, dizzy spells, diaphoresis, Dyspnea on exertion, edema, irregular heart beat, left arm pain, lightheadedness, palpitations, PND, syncope, others Gastrointestinal: denies: abdomen distended, abdominal pain, blood streaked bowels, constipated, diarrhea, dysphagia, difficulty swallowing, hematemesis, melena, nausea, poor appetite, poor fluid intake, rectal bleeding, rectal pain, vomiting, others Genitourinary: denies: abnormal vagina bleeding, burning, dyspareunia, dysuria, flank pain, frequency, hematuria, incontinence, pain, , vagina discharge, urgency, others Neurological: denies: dizziness, fainting, headache, left sided numbness, left sided weakness, numbness, paresthesia, pre-existing deficit, right sided numbness, right sided weakness, seizure, speech problems, tingling, tremors, weakness, others Musculoskeletal: denies: back pain, gout, joint pain, joint swelling, muscle pain, muscle stiffness, neck pain, others Integumetry: denies: bruises, change in color, change in hair/nails, dryness, laceration, lesions, lumps, rash, wounds, others Allergic/Immunocompromised: denies: Difficulty Healing, Frequent Infections, Hives, Itching, others Hematologic/Lymphatic: denies: anemia, blood clots, easy bleeding, easy bruising, swollen glands, others Endocrine: denies: excessive hunger, excessive sweating, excessive thirst, excessive urination, flushing, intolerance to cold, intolerance to heat, unexplained weight gain, unexplained weight loss, others Psychiatric: denies: anxiety, bipolar disorder, depression, hopeless, panic disorder, schizophrenia, sleepless, suicidal, others All Other Systems: Reviewed and Negative Physical Exam General Appearance: Moderate Distress, Normal HEENT: Normal ENT Inspection, Pharynx Normal, TMs Normal Neck: Full Range of Motion, Non-Tender, Normal, Normal Inspection Respiratory: Chest Non-Tender, Lungs Clear, No Accessory Muscle Use, No Respiratory Distress, Normal Breath Sounds Cardiovascular: No Edema, No JVD, No Murmur, No Gallop, Normal Peripheral Pulses, Regular Rate/Rhythm Breast Exam: Deferred Gastrointestinal: No Organomegaly, Non Tender, No Pulsatile Mass, Normal Bowel Sounds, Soft Genitalia: Deferred Pelvic: Deferred Rectal: Deferred Extremities: No calf tenderness, Normal capillary refill, Normal inspection, Normal range of motion, Non-tender, No pedal edema Musculoskeletal : Apperance: Normal Neurologic: Alert, forgeman helper II-XII nml as Tested, No Motor Deficits, Normal Affect, Normal Mood, No Sensory Deficits Cerebellar Function: NOT DONE Reflexes: NOT DONE Skin: Dry, Normal Color, Warm Peripheral Pulses: 3+ Radial (R), 3+ Radial (L) Lymphatic: No Adenopathy Was a procedure done? Was a procedure done?: No Differential Dx Differential Diagnosis: Anxiety, Asthma, Bronchitis X-Ray, Labs, Meds, VS Vital Signs Date Time Temp Pulse Resp B/P (MAP) Pulse Ox O2 Delivery O2 Flow Rate FiO2 04/11/25 12:56 126/57 04/11/25 12:24 99.0 67 26 126/57 (80) 95 99.0 04/11/25 12:24 67 13 95 Nasal Cannula* 3 32 04/11/25 11:19 98.0 72 22 109/49 98 98.0 Lab Test 04/11/25 12:35 Range/Units White Blood Count 6.3 4.4-10.8 10^3/uL Red Blood Count 5.89 H 4.0-5.20 10^6/uL Hemoglobin 11.9 L 12.2-16.2 g/dL Hematocrit 40.4 36.0-46.0 % Mean Corpuscular Volume 68.6 L 80.0-100.0 fL Mean Corpuscular Hemoglobin 20.1 L 28.0-32.0 pg Mean Corpuscular Hemoglobin Concent 29.3 L 32.0-36.0 g/dL Red Cell Distribution Width 21.3 H 11.8-14.3 % Platelet Count 240 140-450 10^3/uL Mean Platelet Volume 8.3 6.9-10.8 fL Neutrophils (%) (Auto) 63.6 37.0-80.0 % Lymphocytes (%) (Auto) 20.6 10.0-50.0 % Monocytes (%) (Auto) 15.7 H 0.0-12.0 % Eosinophils (%) (Auto) 0.0 0.0-7.0 % Basophils (%) (Auto) 0.1 0.0-2.0 % Neutrophils # (Auto) 4.0 1.6-8.6 10 ^3/uL Lymphocytes # (Auto) 1.3 0.4-5.4 10 ^3/uL Monocytes # (Auto) 1.0 0-1.3 10 ^3/uL Eosinophils # (Auto) 0 0-0.8 10 ^3/uL Basophils # (Auto) 0 0-0.2 10 ^3/uL Nucleated Red Blood Cells 0.1 % Platelet Estimate [place] Large Platelets Few Giant Platelets Few Hypochromasia (manual) Moderate Poikilocytosis (manual) Slight Microcytosis Moderate Stomatocytes Many Sodium Level 143 136-145 mmol/L Potassium Level 4.1 3.5-5.1 mmol/L Chloride Level 93 L 98-107 mmol/L Carbon Dioxide Level > 40 *H 20-31 mmol/L Anion Gap 9.79393 5-15 Blood Urea Nitrogen 18 9-23 mg/dL Creatinine 0.51 L 0.550-1.02 mg/dL Glomerular Filtration Rate Calc 93 >90 mL/min BUN/Creatinine Ratio 35.3 H 10.0-20.0 Serum Glucose 171 H 74-106 mg/dL Calcium Level 9.1 8.7-10.4 mg/dL Troponin I High Sensitivity 14 </=34 ng/L B-Type Natriuretic Peptide 98.11 0-100 pg/mL Current Medications Medications (Trade) Dose Ordered Sig/Barney Route Start Time Stop Time Status Last Admin Furosemide (Lasix Injection) 40 mg ONCE ONCE IV 04/11/25 12:30 04/11/25 12:31 DC 04/11/25 12:56 Piperacillin Sod/ Tazobactam Sod 100 ml @ 100 mls/hr ONCE ONCE IV 04/11/25 12:30 04/11/25 13:29 DC 04/11/25 13:20 Azithromycin 250 ml @ 125 mls/hr ONCE ONCE IV 04/11/25 12:30 04/11/25 14:29 04/11/25 13:20 [place] [address] Ph: [phone] DIAGNOSTIC IMAGING Diagnostic Imaging Report : [id number] Signed PATIENT: TRINA FAYACCT: [id number] UNIT: [id number] : 1940 LOC: ER ROOM / BED: / AGE / SEX: 84 / F ADM STATUS: REG ER SERVICE 1217 ORDERING PHYSICIAN: JET MENDEZ MD PROCEDURE(s): CXRP - CHEST PORTABLE REASON: sob ORDER NUMBER(s): [id number], ACCESSION NUMBER(s): [id number] CHEST RADIOGRAPH Indication: sob Technique: Single frontal view of the chest was obtained COMPARISON: XY CHEST PORTABLE on DOS: 04/04/25, XY CHEST PORTABLE on DOS: 12/10/24, CT CT ANGIO CHEST CONTRAST on DOS: 12/06/24, XY CHEST PORTABLE on DOS: 12/05/24, XY CHEST TWO VIEWS ROUTINE on DOS: 09/21/24 FINDINGS: Lines and Tubes: None Lungs: Increased interstitial prominence. This may represent pulmonary vascular congestion and/or viral pneumonia. Pleura: No effusion.No pneumothorax. Cardiomediastinal contours: Cardiomegaly. Bones: Unremarkable IMPRESSION: Cardiomegaly. Increased interstitial prominence. This may represent pulmonary vascular congestion and/or viral pneumonia. ATED BY: ANGEL MOREL MD DICTATED DATE/TIME: 04/11/25 1251 SIGNED BY: ANGEL MOREL MD SIGNED DATE/TIME: 04/11/25 1251 CC: Patient alert. Vitals stable. Complaining of shortness a breath. Placed on oxygen. Chest x-ray reviewed does show congestion. Was given Lasix. Was recently discharged from this hospital. Reviewed her previous visit. Explained to the patient. Continue monitoring. Time of 1ST Reevaluation: 12:40 Reevaluation 1ST: Unchanged Patient Education/Counseling: Diagnosis, Treatment, Prognosis Family Education/Counseling: Diagnosis, Treatment, Prognosis SEPSIS Sepsis Screen Date sepsis recognized/suspect: Apr 11, 2025 Time Sepsis recognized/suspect: 1126 Recent Procedure: No On Antibiotic Therapy: No Respiratory Rate >20: Yes Heart Rate >90: No Temp<36 C (96.8 F) or >38.3 C: No SBP <90 or MAP <65 mmHG: No New Acute Mental Status Change: No Is the patient on CPAP, BIPAP,: No Physician Orders Chest Portable (04/11/25 12:17) Urinalysis (04/11/25 12:17) Azithromycin 500mg/250ml (Zithromax 500m (04/11/25 12:30) Vital Signs Date Time Temp Pulse Resp B/P (MAP) Pulse Ox O2 Delivery O2 Flow Rate FiO2 04/11/25 12:56 126/57 04/11/25 12:24 99.0 67 26 126/57 (80) 95 99.0 04/11/25 12:24 67 13 95 Nasal Cannula* 3 32 04/11/25 11:19 98.0 72 22 109/49 98 98.0 Laboratory Tests Test 04/11/25 12:35 White Blood Count 6.3 10^3/uL (4.4-10.8) Medications Medications Dose Ordered Sig/Barney Route Start Time Stop Time Status Last Admin Dose Admin Azithromycin 250 ml @ 125 mls/hr ONCE ONCE IV 04/11/25 12:30 04/11/25 14:29 04/11/25 13:20 Furosemide 40 mg ONCE ONCE IV 04/11/25 12:30 04/11/25 12:31 DC 04/11/25 12:56 Piperacillin Sod/ Tazobactam Sod 100 ml @ 100 mls/hr ONCE ONCE IV 04/11/25 12:30 04/11/25 13:29 DC 04/11/25 13:20 Departure 1 Departure Time of Disposition: 13:59 Impression: Primary Impression: Acute hypoxic respiratory failure Additional Impressions: Diabetes mellitus Qualified Codes: E13.69 - Other specified diabetes mellitus with other specified complication CHF exacerbation Qualified Codes: I50.43 - Acute on chronic combined systolic (congestive) and diastolic (congestive) heart failure Disposition: ADMITTED INPATIENT Admit to: Med Surg Condition: Guarded Critical Care Note Critical Care Time?: Yes (90 min-critical care time only) Stability Stability form required: No Heart Score Heart Score: Heart Score Response (Comments) Value History Slightly Suspicious 0 EKG Normal 0 Age >65 2 Risk Factors >3 or Hx ASHD 2 Troponin Normal limit 0 Total 4 I personally scribed for JET MENDEZ MD ([email or web address]) on 04/11/25 at 12:23. Electronically submitted by Radha Herndon ([email or web address]). I personally scribed for JET MENDEZ MD ([email or web address]) on 04/11/25 at 13:31. Electronically submitted by Radha Herndon ([email or web address]). JET MENDEZ MD Apr 11, 2025 12:23
[2025-04-11 12:54] LABS: Mean Corpuscular Volume 68.6 fL (80.0-100.0); Nucleated Red Blood Cells % 0.1 %
--- NOTE | 2025-04-11 12:54 | DVH ---
CHEST RADIOGRAPH Indication: sob Technique: Single frontal view of the chest was obtained COMPARISON: XY CHEST PORTABLE on DOS: 04/04/25, XY CHEST PORTABLE on DOS: 12/10/24, CT CT ANGIO CHEST CONTRAST on DOS: 12/06/24, XY CHEST PORTABLE on DOS: 12/05/24, XY CHEST TWO VIEWS ROUTINE on DOS: 09/21/24 FINDINGS: Lines and Tubes: None Lungs: Increased interstitial prominence. This may represent pulmonary vascular congestion and/or viral pneumonia. Pleura: No effusion.No pneumothorax. Cardiomediastinal contours: Cardiomegaly. Bones: Unremarkable IMPRESSION: Cardiomegaly. Increased interstitial prominence. This may represent pulmonary vascular congestion and/or viral pneumonia.
[2025-04-11 12:56] LABS: Hematocrit 40.4 % (36.0-46.0); Hemoglobin 11.9 g/dL (12.2-16.2); Mean Corpuscular Hemoglobin 20.1 pg (28.0-32.0)
[2025-04-11] MEDS: FUROSEMIDE 40 MG/4 ML VIAL IV ONE (12:56)
[2025-04-11 13:00] LABS: Potassium 4.1 mmol/L (3.5-5.1); Sodium 143 mmol/L (136-145)
[2025-04-11 13:01] LABS: Calcium 9.1 mg/dL (8.7-10.4)
[2025-04-11 13:06] LABS: BUN/Creatinine Ratio 35.3 (10.0-20.0); Blood Urea Nitrogen 18 mg/dL (9-23)
[2025-04-11 13:08] LABS: Anion Gap 9.99999 (5-15); Chloride 93 mmol/L (98-107); Glucose 171 mg/dL (74-106)
[2025-04-11 13:10] LABS: Carbon Dioxide > 40 mmol/L (20-31)
[2025-04-11] MEDS: PIPERACILLIN-TAZOB 3.375GM 100 ML IV ONE (13:20)
[2025-04-11] MEDS: AZITHROMYCIN 500MG/250ML 250 ML IV ONE (13:20)
[2025-04-11 13:22] LABS: Giant Platelets Few; Stomatocytes Many
[2025-04-11 14:23] LABS: Urine Amorphous Crystal FEW /hpf (None Seen); Urine Protein, UAD Negative (Negative)
[2025-04-11] MEDS ORDERED: HYDROcodone-ACET 5/325MG TAB PO PRN (14:45)
[2025-04-11] MEDS ORDERED: ACETAMINOPHEN 325 MG TAB PO PRN (14:45)
[2025-04-11] MEDS ORDERED: ONDANSETRON HCL 4 MG/2 ML VIAL IV PRN (14:45)
[2025-04-11] MEDS ORDERED: ALBUTEROL SULF 2.5 MG/0.5ML(0.5%) NEB SOLN NEB PRN (14:45)
[2025-04-11] MEDS ORDERED: DOCUSATE SOD 100 MG CAP PO PRN (14:45)
[2025-04-11] MEDS ORDERED: DEXTROSE (50%) 50ML SYRG IV PRN (14:45)
[2025-04-11] MEDS ORDERED: IPRATROPIUM BROM 0.5 MG/2.5ML INH SOL NEB PRN (14:45)
--- NOTE | 2025-04-11 15:36 | DVHHP2 ---
History of Present Illness Reason for Visit: Acute hypoxic respiratory failure History of Present Illness The patient is a 84-year-old female with past medical history of asthma, diabetes mellitus, COPD, hyperlipidemia, and hypertension who presented to [facility] ED with complaint of shortness of breaths for the past 2 days. Patient reports that she was discharged from [facility] on 04/07/25 with diagnosis COPD exacerbation and antibiotics prescription. Patient went to follow-up clinic this morning and was sent here to ED due to unrelieved shortness of breath despite breathing treatment and oxygen 2 L/min via nasal cannula. Patient was seen and evaluated in the ED, laboratory data shows WBC 6.3, hemoglobin 11.9, hematocrit 40.4, platelets 240, sodium 143, potassium 4.1, BUN 18, creatinine 0.51, GFR 93, glucose 171, calcium 9.1, BNP 98.1, troponin 14, blood pressure 126/57, heart rate 67, temperature 99.0 F, O2 saturation 95% on oxygen. Chest x-ray revealing cardiomegaly, increased interstitial prominence; this may represent pulmonary vascular congestion and/or viral pneu monia. Patient was started on IV antibiotic regimen Zosyn, please see medication orders section in the computer. On my assessment, daughter at bedside, patient denied chest pain, no headache, dizziness, diaphoresis, currently on oxygen, no diarrhea, nausea, vomiting, fever, no chills. Patient was admitted for further evaluation and medical management. Past Medical History Asthma, COPD, DM, HTN, HLD Past Surgical History Cholecystectomy Family History Reviewed, noncontributory to the management of this case. Past Social History The patient lives at home, denies smoking, alcohol or illicit drugs abuse. Review of Systems Constitutional: Yes: Weakness; No: Fever, Chills, Sweats, Malaise, Other Eyes: No: Pain, Vision change, Conjunctivae inflammation, Eyelid inflammation, Other, Redness ENT: No: Ear pain, Ear discharge, Nose pain, Nose discharge, Nose congestion, Mouth pain, Mouth swelling, Throat pain, Throat swelling, Other Respiratory: Cough, Shortness of breath, Other (SOB at rest,); No: Dry, SOB with excertion, Wheezing, Hemoptysis, Pleuritic Pain, Sputum, Wheezing Cardiovascular: No: Chest Pain, Palpitations, Orthopnea, Paroxysmal Noc. Dyspnea, Edema, Lt Headedness, Other Gastrointestinal: No: Nausea, Vomiting, Abdominal Pain, Diarrhea, Constipation, Melena, Hematochezia, Other Genitourinary: No Dysuria, No Frequency, No Incontinence, No Hematuria, No Retention, No Other Musculoskeletal: No: other, neck pain, shoulder pain, arm pain, back pain, hand pain, leg pain, foot pain Skin: No: Rash, Lesions, Jaundice, Bruising, Other Neurological: No: Weakness, Numbness, Incoordination, Change in speech, Confusion, Seizures, Other Allergies: Coded Allergies: NO KNOWN ALLERGIES (Unverified , 12/11/24) Medications Current Medications Medications Dose Ordered Sig/Barney Route Start Time Stop Time Status Last Admin Dose Admin Methylprednisolone Sodium Succinate 40 mg BID IV 04/11/25 22:00 Famotidine 20 mg Q12HR IV 04/11/25 22:00 Aspirin 81 mg DAILY PO 04/12/25 10:00 Azithromycin 250 ml @ 125 mls/hr DAILY IV 04/12/25 10:00 UNV Ceftriaxone Sodium 50 ml @ 100 mls/hr DAILY@09 IV 04/12/25 09:00 Albuterol 2.5 mg Q4HPRN PRN NEB 04/11/25 14:45 Ipratropium [place] 0.5 mg Q4HPRN PRN NEB 04/11/25 14:45 Diagnostic Test (Pha) 1 strip Q6HR 04/11/25 18:00 Insulin Human Regular Q6HR SC 04/11/25 18:00 Dextrose 50 ml UD PRN IV 04/11/25 14:45 Sodium Chloride 10 ml Q8HR IV 04/11/25 22:00 Acetaminophen/ Hydrocodone Bitart 1 tab Q4HP PRN PO 04/11/25 14:45 Ondansetron HCl 4 mg Q4HP PRN IV 04/11/25 14:45 Docusate Sodium 100 mg BIDPRN PRN PO 04/11/25 14:45 Acetaminophen 650 mg Q6HP PRN PO 04/11/25 14:45 Atorvastatin Calcium 10 mg HS PO 04/11/25 22:00 Exam Vital Signs Vital Signs Date Time Temp Pulse Resp B/P (MAP) Pulse Ox O2 Delivery O2 Flow Rate FiO2 04/11/25 15:22 98.8 78 17 130/60 (83) 96 98.8 04/11/25 15:09 3.0 32 04/11/25 12:24 Nasal Cannula* General Appearance: Alert, Oriented X3, Cooperative, No acute distress HEENT: Atraumatic, PERRLA, EOMI, Mucous membr. moist/pink Respiratory: Normal air movement, Other (Diminished breath sounds) Cardiovascular: Regular rate, Normal S1, Normal S2, No murmurs Abdominal: Normal bowel sounds, Soft, No tenderness, No hepatospenomegaly, No masses Extremities: No clubbing, No cyanosis, No edema, Normal pulses, No tenderness/swelling Skin: No rashes, No significant lesion Neuro: Normal speech, Normal tone, Sensation intact, Cranial nerves 3-12 NL, Reflexes 2+, Other (Generalized weakness) Psych/Mental Status: Mental status NL, Mood NL Labs/Xrays Labs Test 04/11/25 12:35 04/11/25 11:31 Range/Units White Blood Count 6.3 4.4-10.8 10^3/uL Red Blood Count 5.89 H 4.0-5.20 10^6/uL Hemoglobin 11.9 L 12.2-16.2 g/dL Hematocrit 40.4 36.0-46.0 % Mean Corpuscular Volume 68.6 L 80.0-100.0 fL Mean Corpuscular Hemoglobin 20.1 L 28.0-32.0 pg Mean Corpuscular Hemoglobin Concent 29.3 L 32.0-36.0 g/dL Red Cell Distribution Width 21.3 H 11.8-14.3 % Platelet Count 240 140-450 10^3/uL Mean Platelet Volume 8.3 6.9-10.8 fL Neutrophils (%) (Auto) 63.6 37.0-80.0 % Lymphocytes (%) (Auto) 20.6 10.0-50.0 % Monocytes (%) (Auto) 15.7 H 0.0-12.0 % Eosinophils (%) (Auto) 0.0 0.0-7.0 % Basophils (%) (Auto) 0.1 0.0-2.0 % Neutrophils # (Auto) 4.0 1.6-8.6 10 ^3/uL Lymphocytes # (Auto) 1.3 0.4-5.4 10 ^3/uL Monocytes # (Auto) 1.0 0-1.3 10 ^3/uL Eosinophils # (Auto) 0 0-0.8 10 ^3/uL Basophils # (Auto) 0 0-0.2 10 ^3/uL Nucleated Red Blood Cells 0.1 % Platelet Estimate [place] Large Platelets Few Giant Platelets Few Hypochromasia (manual) Moderate Poikilocytosis (manual) Slight Microcytosis Moderate Stomatocytes Many Sodium Level 143 136-145 mmol/L Potassium Level 4.1 3.5-5.1 mmol/L Chloride Level 93 L 98-107 mmol/L Carbon Dioxide Level > 40 *H 20-31 mmol/L Anion Gap 9.24203 5-15 Blood Urea Nitrogen 18 9-23 mg/dL Creatinine 0.51 L 0.550-1.02 mg/dL Glomerular Filtration Rate Calc 93 >90 mL/min BUN/Creatinine Ratio 35.3 H 10.0-20.0 Serum Glucose 171 H 74-106 mg/dL Calcium Level 9.1 8.7-10.4 mg/dL Troponin I High Sensitivity 14 </=34 ng/L B-Type Natriuretic Peptide 98.11 0-100 pg/mL Urine Color Yellow Yellow Urine Clarity Turbid H Clear Urine pH 7.0 5.0-9.0 Urine Specific [place] 1.017 1.001-1.035 Urine Protein Negative Negative Urine Ketones Negative Negative Urine Blood Negative Negative /uL Urine Nitrite Negative Negative Urine Bilirubin Negative Negative Urine Urobilinogen 4 H Negative mg/dL Urine Leukocyte Esterase Negative Negative /uL Urine RBC 1 0 - 4 /hpf Urine Microscopic WBC 2 0-5 /HPF Urine Squamous Epithelial Cells Few <5 /hpf Urine Amorphous Crystals Few None Seen /hpf Urine Bacteria Few H None Seen /hpf Urine Glucose 2+ H Normal mg/dL PATIENT: TRINA FAYACCT: [id number] UNIT: [id number] : 1940 LOC: ER ROOM / BED: / AGE / SEX: 84 / F ADM STATUS: REG ER SERVICE 1217 ORDERING PHYSICIAN: JET MENDEZ MD PROCEDURE(s): CXRP - CHEST PORTABLE REASON: sob ORDER NUMBER(s): [id number], ACCESSION NUMBER(s): [id number] CHEST RADIOGRAPH Indication: sob Technique: Single frontal view of the chest was obtained COMPARISON: XY CHEST PORTABLE on DOS: 04/04/25, XY CHEST PORTABLE on DOS: 12/10/24, CT CT ANGIO CHEST CONTRAST on DOS: 12/06/24, XY CHEST PORTABLE on DOS: 12/05/24, XY CHEST TWO VIEWS ROUTINE on DOS: 09/21/24 FINDINGS: Lines and Tubes: None Lungs: Increased interstitial prominence. This may represent pulmonary vascular congestion and/or viral pneumonia. Pleura: No effusion.No pneumothorax. Cardiomediastinal contours: Cardiomegaly. Bones: Unremarkable IMPRESSION: Cardiomegaly. Increased interstitial prominence. This may represent pulmonary vascular congestion and/or viral pneumonia. SEPSIS Sepsis Screen Date sepsis recognized/suspect: Apr 11, 2025 Time Sepsis recognized/suspect: 1229 Recent Procedure: No On Antibiotic Therapy: No Respiratory Rate >20: Yes Heart Rate >90: No Temp<36 C (96.8 F) or >38.3 C: No SBP <90 or MAP <65 mmHG: No New Acute Mental Status Change: No Is the patient on CPAP, BIPAP,: No Physician Orders Chest Portable (04/11/25 12:17) Methylprednisolone Sod Succ (Solu Medrol (04/11/25 22:00) Famotidine Injection (Pepcid Injection) (04/11/25 22:00) Aspirin Chewable Tablet (04/12/25 10:00) Azithromycin 500mg/250ml (Zithromax 500m (04/12/25 10:00) Ceftriaxone 1gm/50ml (Rocephin) (04/12/25 09:00) Consistent Carb(Ccho)Diabetes (04/11/25 Dinner) Albuterol Medneb (Ventolin Medneb) (04/11/25 14:45) Ipratropium Medneb (Atrovent Medneb) (04/11/25 14:45) Glucose Blood (Accu-Chek Comfort Curve T (04/11/25 18:00) Insulin R (Human) (Insulin R) (04/11/25 18:00) Dextrose 50% Syringe (04/11/25 14:45) Allergies (04/11/25 14:35) Code Status (04/11/25 14:35) Sodium Chloride Lock (Saline Lock Ns) (04/11/25 22:00) Oxygen Per Hour (04/11/25 14:35) Hydrocodone-Acet 5/325mg Tab ([place] 5/32 (04/11/25 14:45) Ondansetron Hcl (Zofran) (04/11/25 14:45) Docusate Sodium Capsule (Colace Capsule) (04/11/25 14:45) Fall Risk Precautions In Place QSHIFT (04/11/25 14:35) Complete Blood Count (04/12/25 04:00) Comprehensive Metabolic Panel (04/12/25 04:00) Condition: Serious (04/11/25 14:35) Acetaminophen Tablet (Tylenol Tablet) (04/11/25 14:45) Maintain Bed Rest (04/11/25 14:35) Sequential Compression Device (04/11/25 ) Atorvastatin (Lipitor) (04/11/25 22:00) Vital Signs Date Time Temp Pulse Resp B/P (MAP) Pulse Ox O2 Delivery O2 Flow Rate FiO2 04/11/25 15:22 98.8 78 17 130/60 (83) 96 98.8 04/11/25 15:09 67 13 126/57 95 3.0 32 04/11/25 13:30 74 18 120/53 (75) 92 04/11/25 12:56 126/57 04/11/25 12:24 99.0 67 26 126/57 (80) 95 99.0 04/11/25 12:24 67 13 95 Nasal Cannula* 3 32 04/11/25 11:19 98.0 72 22 109/49 98 98.0 Laboratory Tests Test 04/11/25 12:35 White Blood Count 6.3 10^3/uL (4.4-10.8) Medications Medications Dose Ordered Sig/Barney Route Start Time Stop Time Status Last Admin Dose Admin Azithromycin 250 ml @ 125 mls/hr ONCE ONCE IV 04/11/25 12:30 04/11/25 14:29 DC 04/11/25 13:20 125 MLS/HR Furosemide 40 mg ONCE ONCE IV 04/11/25 12:30 04/11/25 12:31 DC 04/11/25 12:56 40 MG Piperacillin Sod/ Tazobactam Sod 100 ml @ 100 mls/hr ONCE ONCE IV 04/11/25 12:30 04/11/25 13:29 DC 04/11/25 13:20 100 MLS/HR Assessment/Plan Assessment/Plan Acute hypoxic respiratory failure COPD with acute exacerbation Pneumonia, unspecified organism Generalized weakness Diabetes mellitus with hyperglycemia Plan 1. Admit to telemetry unit 2. Breathing treatment 3. Pain control management 4. IV antibiotic management 5. Management of fluids and electrolytes 6. Consultation for hospitalist 7. Diagnostic test chest x-ray 8. DVT prophylaxis-on aspirin 9. Repeat labs CBC, CMP in a.m. 10. Home medication reviewed and reconciled 11. Continue with current medical management 12. Treatment plan discussed with patient and RN. Patient verbalized understanding. Plan discussed with: Patient, Other (RN) My Orders Orders - ASHLEIGH DUPONT DNP Procedure Category Date Status Time Methylprednisolone PHA 04/11/25 In Process Sod Succ (Solu Medrol 22:00 Famotidine Injection PHA 04/11/25 In Process (Pepcid Injection) 22:00 Aspirin Chewable PHA 04/12/25 In Process Tablet 10:00 Azithromycin PHA 04/12/25 Logged 500mg/250ml 10:00 Ceftriaxone 1gm/50ml PHA 04/12/25 In Process (Rocephin) 09:00 Consistent DIET 04/11/25 Transmitted Carb(Ccho)Diabetes Dinner Albuterol Medneb PHA 04/11/25 In Process (Ventolin Medneb) 14:45 Ipratropium Medneb PHA 04/11/25 In Process (Atrovent Medneb) 14:45 Glucose Blood PHA 04/11/25 In Process (Accu-Chek Comfort 18:00 Insulin R (Human) PHA 04/11/25 In Process (Insulin R) 18:00 Dextrose 50% Syringe PHA 04/11/25 In Process 14:45 Allergies EVI 04/11/25 In Process 14:35 Code Status CODE 04/11/25 Transmitted 14:35 Sodium Chloride Lock PHA 04/11/25 In Process (Saline Lock Ns) 22:00 Oxygen Per Hour RT 04/11/25 Transmitted 14:35 Hydrocodone-Acet PHA 04/11/25 In Process 5/325mg Tab ([place] 14:45 Ondansetron Hcl PHA 04/11/25 In Process (Zofran) 14:45 Docusate Sodium PHA 04/11/25 In Process Capsule (Colace 14:45 Fall Risk Precautions EVI 04/11/[address] 14:35 Complete Blood Count LAB 04/12/25 Verified 04:00 Comprehensive LAB 04/12/25 Verified Metabolic Panel 04:00 Condition: Serious EVI 04/11/25 In Process 14:35 Acetaminophen Tablet PHA 04/11/25 In Process (Tylenol Tablet) 14:45 Maintain Bed Rest EVI 04/11/25 In Process 14:35 Sequential EVI 04/11/25 In Process Compression Device Atorvastatin (Lipitor) PHA 04/11/25 In Process 22:00 Problem List: (1) Acute hypoxic respiratory failure (2) COPD with acute exacerbation (3) Pneumonia, unspecified organism (4) Generalized weakness (5) Diabetes mellitus with hyperglycemia Date of Service: Apr 11, 2025 Billing Provider: ASHLEIGH DUPONT DNP Common Visit Codes: [id number] INP/OBS CARE (HIGH) ASHELIGH DUPONT DNP Apr 11, 2025 15:36
[2025-04-11] MEDS ORDERED: NITROGLYCERIN 0.4 MG SL TAB SL PRN (15:45)
[2025-04-11] MEDS ORDERED: MORPHINE SULFATE INJ 2 MG/ml SYRG IV PRN (15:45)
[2025-04-11] MEDS: methylPREDNISolone SOD SUCC 125 MG/2 ML VL IV ONE (16:18)
[2025-04-11] MEDS: ACCU-CHEK COMFORT CURVE STRIP VI SCH (17:09)
[2025-04-11] MEDS: InsuLIN REG 1unit/0.01ml Soln (100units/ml) SC SCH (17:42)
[2025-04-11] MEDS: FAMOTIDINE (10MG/ML) 2ML VL IV SCH (22:09)
[2025-04-11] MEDS: ATORVASTATIN 20 MG TAB PO SCH (22:09)
[2025-04-11] MEDS: methylPREDNISolone SOD SUCC 40 MG/ML VL IV SCH (22:09)
[2025-04-11] MEDS: SODIUM CHLOR 0.9% PF (SALINE LOCK) 10ML VIAL/SYR IV SCH (22:10)
[2025-04-12] VITALS (9 sets, daily range): BP systolic 107–127; BP diastolic 55–79; PULSE 68–92; RESP 17–20; TEMP 97.9–98.9; O2SAT 91–97
[2025-04-12 06:29] LABS: Hemoglobin 13.1 g/dL (12.2-16.2); Mean Corpuscular Hemoglobin 20.2 pg (28.0-32.0); Mean Corpuscular Volume 69.1 fL (80.0-100.0)
[2025-04-12 06:31] LABS: Hematocrit 44.9 % (36.0-46.0); Nucleated Red Blood Cells % 0.1 %
[2025-04-12 06:47] LABS: Alanine Aminotransferase 22 U/L (7-40); Albumin 4.3 g/dL (3.2-4.8); Alkaline Phosphatase 81 U/L (46-116); BUN/Creatinine Ratio 40.9 (10.0-20.0); Bilirubin, Total 0.8 mg/dL (0.2-1.0); Blood Urea Nitrogen 18 mg/dL (9-23); Calcium 9.4 mg/dL (8.7-10.4); Potassium 4.0 mmol/L (3.5-5.1); Sodium 141 mmol/L (136-145); Total Protein 6.6 g/dL (5.7-8.2)
[2025-04-12 06:51] LABS: Anion Gap 12.99999 (5-15); Chloride 88 mmol/L (98-107)
[2025-04-12 06:52] LABS: Glucose 148 mg/dL (74-106)
[2025-04-12 06:55] LABS: Carbon Dioxide > 40 mmol/L (20-31)
[2025-04-12 07:30] LABS: Anisocytosis Slight
[2025-04-12 07:31] LABS: Stomatocytes Few
[2025-04-12] MEDS: AZITHROMYCIN 500MG/250ML 250 ML IV SCH (10:25)
--- NOTE | 2025-04-12 12:23 | MEDREC ---
[facility] Intervention Section I Assessment of apprpriate abx f: Community acquired PNA (Suggest escalating empiric PNA coverage to Zosyn, as pt was recently hospitalized and received IV antibiotics during this stay.) CLOVER SHEIKH PHARMACIST Apr 12, 2025 12:23
--- NOTE | 2025-04-12 15:56 | DVHPN2 ---
Changes from previous H/P or p: No Changes Eyes: No Pain, No Vision change, No Conjunctivae inflammation, No Eyelid inflammation, No Other, No Redness ENT: No Ear pain, No Ear discharge, No Nose pain, No Nose discharge, No Nose congestion, No Mouth pain, No Mouth swelling, No Throat pain, No Throat swelling, No Other Cardiovascular: No Chest Pain, No Palpitations, No Orthopnea, No Paroxysmal Noc. Dyspnea, No Edema, No Lt Headedness, No Other Respiratory: Cough; No Dry; Shortness of breath; No SOB with excertion, No Wheezing, No Hemoptysis, No Pleuritic Pain, No Sputum; Other (SOB at rest,) Gastrointestinal: No Nausea, No Vomiting, No Abdominal Pain, No Diarrhea, No Constipation, No Melena, No Hematochezia, No Other Genitourinary: No Dysuria, No Frequency, No Incontinence, No Hematuria, No Retention, No Other Musculoskeletal: No other, No neck pain, No shoulder pain, No arm pain, No back pain, No hand pain, No leg pain, No foot pain Skin: No Rash, No Lesions, No Jaundice, No Bruising, No Other Objective Vitals Vital Signs Date Time Temp Pulse Resp B/P (MAP) Pulse Ox O2 Delivery O2 Flow Rate FiO2 04/12/25 12:33 98.9 81 19 121/79 (93) 96 98.9 04/12/25 10:00 Nasal Cannula* 3 32 Intake/Output Intake and Output 04/12/25 07:00 Intake Total 465 ml Balance 465 ml Intake Oral 115 ml IV Total 350 ml # Voids 2 # Bowel Movements 1 Medications Current Medications Medications Dose Ordered Sig/Barney Route Start Time Stop Time Status Last Admin Dose Admin Methylprednisolone Sodium Succinate 40 mg BID IV 04/11/25 22:00 04/12/25 08:42 40 MG Famotidine 20 mg Q12HR IV 04/11/25 22:00 04/12/25 08:42 20 MG Aspirin 81 mg DAILY PO 04/12/25 10:00 04/12/25 08:42 81 MG Azithromycin 250 ml @ 125 mls/hr DAILY IV 04/12/25 10:00 04/12/25 10:25 125 MLS/HR Ceftriaxone Sodium 50 ml @ 100 mls/hr DAILY@09 IV 04/12/25 09:00 04/12/25 08:42 100 MLS/HR Albuterol 2.5 mg Q4HPRN PRN NEB 04/11/25 14:45 Ipratropium [place] 0.5 mg Q4HPRN PRN NEB 04/11/25 14:45 Diagnostic Test (Pha) 1 strip Q6HR 04/11/25 18:00 04/12/25 12:25 1 STRIP Insulin Human Regular Q6HR SC 04/11/25 18:00 04/12/25 12:27 3 UNITS Dextrose 50 ml UD PRN IV 04/11/25 14:45 Sodium Chloride 10 ml Q8HR IV 04/11/25 22:00 04/12/25 06:04 10 ML Acetaminophen/ Hydrocodone Bitart 1 tab Q4HP PRN PO 04/11/25 14:45 Ondansetron HCl 4 mg Q4HP PRN IV 04/11/25 14:45 Docusate Sodium 100 mg BIDPRN PRN PO 04/11/25 14:45 Acetaminophen 650 mg Q6HP PRN PO 04/11/25 14:45 Atorvastatin Calcium 10 mg HS PO 04/11/25 22:00 04/11/25 22:09 10 MG Nitroglycerin 0.4 mg Q5MINP PRN SL 04/11/25 15:45 Morphine Sulfate 2 mg Q30M PRN IV 04/11/25 15:45 Laboratory Results Laboratory Tests 04/12/25 05:50 Chemistry Test 04/12/25 05:50 Albumin 4.3 g/dL (3.2-4.8) Calcium Level 9.4 mg/dL (8.7-10.4) Total Protein 6.6 g/dL (5.7-8.2) LFT Test 04/12/25 05:50 Alanine Aminotransferase (ALT) 22 U/L (7-40) Alkaline Phosphatase 81 U/L (46-116) Aspartate Amino Transferase (AST) 22 U/L (13-40) Total Bilirubin 0.8 mg/dL (0.2-1.0) Urinalysis Test 04/11/25 11:31 Urine Color Yellow (Yellow) Urine Clarity Turbid (Clear) H Urine pH 7.0 (5.0-9.0) Urine Specific [place] 1.017 (1.001-1.035) Urine Protein Negative (Negative) Urine Ketones Negative (Negative) Urine Blood Negative /uL (Negative) Urine Nitrite Negative (Negative) Urine Bilirubin Negative (Negative) Urine Urobilinogen 4 mg/dL (Negative) H Urine Leukocyte Esterase Negative /uL (Negative) Urine RBC 1 /hpf (0 - 4) Urine Microscopic WBC 2 /HPF (0-5) Urine Squamous Epithelial Cells Few /hpf (<5) Urine Amorphous Crystals Few /hpf (None Seen) Urine Bacteria Few /hpf (None Seen) H Urine Glucose 2+ mg/dL (Normal) H Microbiology Microbiology Date/Time Source Procedure Growth Status 04/12/25 03:55 Nose MRSA Screen - Final Complete Labs and/or images reviewed: Labs reviewed by me, Image(s) reviewed by me Assessment/Plan Assessment/Plan Acute on chronic hypoxic respiratory failure Acute on chronic heart failure with preserved ejection fraction Possible community-acquired pneumonia Gram-positive versus Gram-negative: Rocephin azithromycin Hypoxia Acute COPD exacerbation: Albuterol Atrovent Solu-Medrol Diabetes Hypertension Hypercholesterolemia Time spent 50 minutes Advanced care planning time 20 minutes Patient is full code Plan discussed with: Patient Date of Service: Apr 12, 2025 Billing Provider: ODALIS ZAMORA MD Common Visit Codes: [id number] INP/OBS CARE(HIGH) ODALIS ZAMORA MD Apr 12, 2025 15:56
[2025-04-13] VITALS (9 sets, daily range): BP systolic 106–128; BP diastolic 56–75; PULSE 62–81; RESP 16–18; TEMP 97.5–98.9; O2SAT 92–97
--- NOTE | 2025-04-13 09:35 | DVHPN2 ---
Reviewed: Care Plan, H&P, Labs, Medications, Previous Orders, Radiology Changes from previous H/P or p: No Changes Eyes: No Pain, No Vision change, No Conjunctivae inflammation, No Eyelid inflammation, No Other, No Redness ENT: No Ear pain, No Ear discharge, No Nose pain, No Nose discharge, No Nose congestion, No Mouth pain, No Mouth swelling, No Throat pain, No Throat swelling, No Other Cardiovascular: No Chest Pain, No Palpitations, No Orthopnea, No Paroxysmal Noc. Dyspnea, No Edema, No Lt Headedness, No Other Respiratory: Cough; No Dry; Shortness of breath; No SOB with excertion, No Wheezing, No Hemoptysis, No Pleuritic Pain, No Sputum; Other (SOB at rest,) Gastrointestinal: No Nausea, No Vomiting, No Abdominal Pain, No Diarrhea, No Constipation, No Melena, No Hematochezia, No Other Genitourinary: No Dysuria, No Frequency, No Incontinence, No Hematuria, No Retention, No Other Musculoskeletal: No other, No neck pain, No shoulder pain, No arm pain, No back pain, No hand pain, No leg pain, No foot pain Skin: No Rash, No Lesions, No Jaundice, No Bruising, No Other Objective Vitals Vital Signs Date Time Temp Pulse Resp B/P (MAP) Pulse Ox O2 Delivery O2 Flow Rate FiO2 04/13/25 08:36 98.1 76 16 126/58 (80) 95 98.1 04/13/25 08:00 Nasal Cannula* 2 28 Intake/Output Intake and Output 04/13/25 07:00 Intake Total 470 ml Balance 470 ml Intake Oral 420 ml IV Total 50 ml # Voids 6 Medications Current Medications Medications Dose Ordered Sig/Barney Route Start Time Stop Time Status Last Admin Dose Admin Methylprednisolone Sodium Succinate 40 mg BID IV 04/11/25 22:00 04/12/25 21:45 40 MG Famotidine 20 mg Q12HR IV 04/11/25 22:00 04/12/25 21:45 20 MG Aspirin 81 mg DAILY PO 04/12/25 10:00 04/12/25 08:42 81 MG Azithromycin 250 ml @ 125 mls/hr DAILY IV 04/12/25 10:00 04/12/25 10:25 125 MLS/HR Ceftriaxone Sodium 50 ml @ 100 mls/hr DAILY@09 IV 04/12/25 09:00 04/13/25 09:24 100 MLS/HR Albuterol 2.5 mg Q4HPRN PRN NEB 04/11/25 14:45 Ipratropium [place] 0.5 mg Q4HPRN PRN NEB 04/11/25 14:45 Diagnostic Test (Pha) 1 strip Q6HR 04/11/25 18:00 04/13/25 06:21 1 STRIP Insulin Human Regular Q6HR SC 04/11/25 18:00 04/13/25 00:00 3 UNITS Dextrose 50 ml UD PRN IV 04/11/25 14:45 Sodium Chloride 10 ml Q8HR IV 04/11/25 22:00 04/13/25 06:20 10 ML Acetaminophen/ Hydrocodone Bitart 1 tab Q4HP PRN PO 04/11/25 14:45 Ondansetron HCl 4 mg Q4HP PRN IV 04/11/25 14:45 Docusate Sodium 100 mg BIDPRN PRN PO 04/11/25 14:45 Acetaminophen 650 mg Q6HP PRN PO 04/11/25 14:45 Atorvastatin Calcium 10 mg HS PO 04/11/25 22:00 04/12/25 21:45 10 MG Nitroglycerin 0.4 mg Q5MINP PRN SL 04/11/25 15:45 Morphine Sulfate 2 mg Q30M PRN IV 04/11/25 15:45 Laboratory Results Laboratory Tests 04/12/25 05:50 Urinalysis Test 04/11/25 11:31 Urine Color Yellow (Yellow) Urine Clarity Turbid (Clear) H Urine pH 7.0 (5.0-9.0) Urine Specific [place] 1.017 (1.001-1.035) Urine Protein Negative (Negative) Urine Ketones Negative (Negative) Urine Blood Negative /uL (Negative) Urine Nitrite Negative (Negative) Urine Bilirubin Negative (Negative) Urine Urobilinogen 4 mg/dL (Negative) H Urine Leukocyte Esterase Negative /uL (Negative) Urine RBC 1 /hpf (0 - 4) Urine Microscopic WBC 2 /HPF (0-5) Urine Squamous Epithelial Cells Few /hpf (<5) Urine Amorphous Crystals Few /hpf (None Seen) Urine Bacteria Few /hpf (None Seen) H Urine Glucose 2+ mg/dL (Normal) H Microbiology Microbiology Date/Time Source Procedure Growth Status 04/12/25 03:55 Nose MRSA Screen - Final Complete Labs and/or images reviewed: Labs reviewed by me, Image(s) reviewed by me Assessment/Plan Assessment/Plan Acute on chronic hypoxic respiratory failure Acute on chronic heart failure with preserved ejection fraction Possible community-acquired pneumonia Gram-positive versus Gram-negative: Rocephin azithromycin Hypoxia Acute COPD exacerbation: Albuterol Atrovent Solu-Medrol Diabetes Hypertension Hypercholesterolemia Use of home oxygen Time spent 50 minutes Advanced care planning time 20 minutes Patient is full code Examined with the help of spiritual counselor Plan discussed with: Patient Date of Service: Apr 13, 2025 Billing Provider: ODALIS ZAMORA MD Common Visit Codes: [id number] INP/OBS CARE(HIGH) ODALIS ZAMORA MD Apr 13, 2025 09:35
[2025-04-13 13:39] LABS: COVID19 ANTIGEN SOFIA FIA NEGATIVE (NEGATIVE)
--- NOTE | 2025-04-13 14:04 | ECG ---
[facility] Test Date: 2025-04-11 Test Time: 15:42:15 Pat Name: TRINA FAY Department: [facility] ED Patient ID: [facility]-[id number] Room: 0248T B Gender: F Apn: RUPA : 1940 Requested By: EMERGENCY EMERGENCY Order Number: [id number] Reading MD: Chris Quintero Measurements Intervals [place] Rate: 76 P: 23 WV: 127 QRS: -6 QRSD: 85 T: 8 QT: 384 QTc: 432 Interpretive Statements Sinus rhythm Borderline ST elevation, anterolateral leads Electronically Signed On 04-13-2025 17:03:17 PST by Chris Quintero Please click the below link to view image of tracing.
--- NOTE | 2025-04-13 23:36 | DVHINCON2 ---
Date of service: Apr 13, [address] Montero Reason for Consultation Acute hypoxic respiratory failure, pneumonia, COPD exacerbation History of Present Illness The patient is an 84-year-old woman with past medical history of asthma, COPD, diabetes mellitus, hyperlipidemia, and hypertension who presented to ED on 04/05/25 with complaint of shortness of breath for the past 2 days. Patient was discharged from [facility] on 04/11/25 with diagnosis of COPD exacerbation on antibiotics. Patient went to follow-up clinic on day of presentation and was sent to ED due to unrelieved shortness of breath despite breathing treatment and oxygen 2 L/min via nasal cannula. Patient was seen and evaluated in the ED. Laboratory data shows WBC 6.3, hemoglobin 11.9, hematocrit 40.4, platelets 240, sodium 143, potassium 4.1, BUN 18, creatinine 0.51, GFR 93, glucose 171, calcium 9.1, BNP 98.1, troponin 14. Initial vitals showed blood pressure 126/57, heart rate 67, temperature 99.0 F, O2 saturation 95% on oxygen. Chest x-ray revealing cardiomegaly, increased interstitial prominence; this may represent pulmonary vascular congestion and/or viral pneumonia. Patient denied chest pain, headache, dizziness, fever, chills, N/V/D or other acute complaints. Patient was admitted for further care. Pulmonary consultation is requested for evaluation and management of acute hypoxic respiratory failure, pneumonia and COPD exacerbation. Review of Systems: 14-point review of systems negative unless otherwise noted above. Past Medical History Asthma, COPD, DM, HTN, HLD Past Surgical History Cholecystectomy Medications: Reviewed. Allergies: No known drug allergies. Family History: No family history of premature CAD. No family history of lung disorders. Social History: Nonsmoker. No alcohol or illicit drug use. Family History: Patient reports no known family medical history. Allergies: Coded Allergies: NO KNOWN ALLERGIES (Unverified , 12/11/24) Home Meds Active Scripts Azithromycin (Zithromax Z-Vic) 250 Mg Tab, 250 MG PO UD, #6 TAB Prov:NICOLETTE SIVLA MD 04/07/25 Methylprednisolone (Medrol Dosepak) 4 Mg Vic, 4 MG PO UD, #21 TAB UAD Prov:NICOLETTE SILVA MD 04/07/25 Furosemide (Lasix) 20 Mg Tb, 1 TAB PO DAILY, #30 TAB 0 Refills Prov:NICOLETTE SILVA MD 04/07/25 Vital Signs Vital Signs Date Time Temp Pulse Resp B/P (MAP) Pulse Ox O2 Delivery O2 Flow Rate FiO2 04/13/25 20:07 92 Nasal Cannula 2.0 04/13/25 20:07 28 04/13/25 20:00 16 04/13/25 16:37 98.9 66 115/61 (79) 98.9 Physical Exam Gen.: Patient lying in bed in no apparent distress. On supplemental oxygen. Head: Normocephalic, atraumatic. Eyes: EOMI/PERRLA. Ears: Normal hearing. Normal anatomy. Neck/trachea: Trachea midline, supple. Nose: Normal external anatomy. Mouth: Moist mucous membranes. Chest: Decreased air entry bilaterally. No wheezing or rhonchi. Cardiovascular: Positive S1, positive S2. Regular rate and rhythm. Abdomen: Positive bowel sounds in all 4 quadrants. Soft, non-tender, non- distended. : Deferred. Rectal: Deferred. Skin: Warm, dry. Intact. Extremities: 2+ radial pulses bilaterally. No lower extremity edema. Neuro: Awake, alert, oriented x3. No gross motor or sensory deficits. Cranial nerves II through XII intact. Gait not assessed. Labs/Diagnostic Data Labs Test 04/13/25 22:53 04/13/25 11:00 04/12/25 05:50 04/11/25 12:35 Range/Units POC Glucose 206 H 70-106 mg/dl Influenza Type A Antigen Negative Negative Influenza Type B Antigen Negative Negative SARS-CoV-2 Antigen (Rapid) Negative NEGATIVE White Blood Count 8.0 # 4.4-10.8 10^3/uL Red Blood Count 6.50 H 4.0-5.20 10^6/uL Hemoglobin 13.1 12.2-16.2 g/dL Hematocrit 44.9 # 36.0-46.0 % Mean Corpuscular Volume 69.1 L 80.0-100.0 fL Mean Corpuscular Hemoglobin 20.2 L 28.0-32.0 pg Mean Corpuscular Hemoglobin Concent 29.2 L 32.0-36.0 g/dL Red Cell Distribution Width 21.5 H 11.8-14.3 % Platelet Count 249 140-450 10^3/uL Mean Platelet Volume 8.4 6.9-10.8 fL Neutrophils (%) (Auto) 84.8 H 37.0-80.0 % Lymphocytes (%) (Auto) 13.5 10.0-50.0 % Monocytes (%) (Auto) 1.6 0.0-12.0 % Eosinophils (%) (Auto) 0.0 0.0-7.0 % Basophils (%) (Auto) 0.1 0.0-2.0 % Neutrophils # (Auto) 6.8 1.6-8.6 10 ^3/uL Lymphocytes # (Auto) 1.1 0.4-5.4 10 ^3/uL Monocytes # (Auto) 0.1 0-1.3 10 ^3/uL Eosinophils # (Auto) 0 0-0.8 10 ^3/uL Basophils # (Auto) 0 0-0.2 10 ^3/uL Nucleated Red Blood Cells 0.1 % Platelet Estimate Adequate Hypochromasia (manual) Marked Anisocytosis (manual) Slight Microcytosis Marked Stomatocytes Few Sodium Level 141 136-145 mmol/L Potassium Level 4.0 3.5-5.1 mmol/L Chloride Level 88 L 98-107 mmol/L Carbon Dioxide Level > 40 *H 20-31 mmol/L Anion Gap 12.80640 5-15 Blood Urea Nitrogen 18 9-23 mg/dL Creatinine 0.44 L 0.550-1.02 mg/dL Glomerular Filtration Rate Calc 96 >90 mL/min BUN/Creatinine Ratio 40.9 H 10.0-20.0 Serum Glucose 148 H 74-106 mg/dL Calcium Level 9.4 8.7-10.4 mg/dL Total Bilirubin 0.8 0.2-1.0 mg/dL Aspartate Amino Transferase (AST) 22 13-40 U/L Alanine Aminotransferase (ALT) 22 7-40 U/L Alkaline Phosphatase 81 46-116 U/L Total Protein 6.6 5.7-8.2 g/dL Albumin 4.3 3.2-4.8 g/dL Large Platelets Few Giant Platelets Few Poikilocytosis (manual) Slight Troponin I High Sensitivity 14 </=34 ng/L B-Type Natriuretic Peptide 98.11 0-100 pg/mL Test 04/11/25 11:31 Range/Units Urine Color Yellow Yellow Urine Clarity Turbid H Clear Urine pH 7.0 5.0-9.0 Urine Specific [place] 1.017 1.001-1.035 Urine Protein Negative Negative Urine Ketones Negative Negative Urine Blood Negative Negative /uL Urine Nitrite Negative Negative Urine Bilirubin Negative Negative Urine Urobilinogen 4 H Negative mg/dL Urine Leukocyte Esterase Negative Negative /uL Urine RBC 1 0 - 4 /hpf Urine Microscopic WBC 2 0-5 /HPF Urine Squamous Epithelial Cells Few <5 /hpf Urine Amorphous Crystals Few None Seen /hpf Urine Bacteria Few H None Seen /hpf Urine Glucose 2+ H Normal mg/dL Microbiology Date/Time Source Procedure Growth Status 04/12/25 03:55 Nose MRSA Screen - Final Complete Assessment Impression: Acute hypoxic respiratory failure Dependence on supplemental oxygen Pneumonia, likely gram negative Acute COPD exacerbation Diabetes mellitus with hyperglycemia Plan: Supplemental oxygen Titrate to keep O2 sats above 92%. On 3 LPM NC Taper O2 as tolerated. Continue bronchodilators. IV steroids Continue antibiotics Antitussive PRN cough Incentive spirometry Accu-Cheks, ISS. Monitor renal function. Monitor electrolytes. Supplement as necessary. Monitor ins and outs. GI/DVT prophylaxis. Prognosis: Poor given patient's multiple co-morbidities. Rest of plan per hospitalist and other consultants. Thank you, Dr. Montero, for allowing me to participate in this patient's care. Further recommendations will depend on the patient's clinical course. Please do not hesitate to contact me if you have any questions or concerns. This medical document was created using an electronic medical record system with [employer] dictation system. Although these documentations are being carefully reviewed, there may still be some phonetic and typographical changes. The errors are purely typographical, due to imperfection on the software program, and do not reflect any compromise in the patient's medical care. Plan discussed with: Patient, Other (MILTON Liang/Dr. Montero) Visit Coding Pulmonary Billing Provider: EMILY SEYMOUR MD Date of Service if different f: Apr 13, 2025 Common Visit Codes: [id number] INP/OBS CARE (HIGH) EMILY SEYMOUR MD Apr 13, 2025 23:36
[2025-04-14] VITALS (10 sets, daily range): BP systolic 116–139; BP diastolic 29–79; PULSE 61–88; RESP 15–19; TEMP 97.9–98.1; O2SAT 96–99
--- NOTE | 2025-04-14 09:27 | DVHPN2 ---
Reviewed: Care Plan, H&P, Labs, Medications, Previous Orders, Radiology Changes from previous H/P or p: No Changes Eyes: No Pain, No Vision change, No Conjunctivae inflammation, No Eyelid inflammation, No Other, No Redness ENT: No Ear pain, No Ear discharge, No Nose pain, No Nose discharge, No Nose congestion, No Mouth pain, No Mouth swelling, No Throat pain, No Throat swelling, No Other Cardiovascular: No Chest Pain, No Palpitations, No Orthopnea, No Paroxysmal Noc. Dyspnea, No Edema, No Lt Headedness, No Other Respiratory: Cough; No Dry; Shortness of breath; No SOB with excertion, No Wheezing, No Hemoptysis, No Pleuritic Pain, No Sputum; Other (SOB at rest,) Gastrointestinal: No Nausea, No Vomiting, No Abdominal Pain, No Diarrhea, No Constipation, No Melena, No Hematochezia, No Other Genitourinary: No Dysuria, No Frequency, No Incontinence, No Hematuria, No Retention, No Other Musculoskeletal: No other, No neck pain, No shoulder pain, No arm pain, No back pain, No hand pain, No leg pain, No foot pain Skin: No Rash, No Lesions, No Jaundice, No Bruising, No Other Objective Vitals Vital Signs Date Time Temp Pulse Resp B/P (MAP) Pulse Ox O2 Delivery O2 Flow Rate FiO2 04/14/25 08:25 96 Nasal Cannula* 3 32 04/14/25 05:00 98.0 88 19 119/79 (92) 98.0 Intake/Output Intake and Output 04/14/25 06:59 Intake Total 2500 ml Balance 2500 ml Intake Oral 2200 ml IV Total 300 ml # Voids 9 # Bowel Movements 1 Medications Current Medications Medications Dose Ordered Sig/Barney Route Start Time Stop Time Status Last Admin Dose Admin Methylprednisolone Sodium Succinate 40 mg BID IV 04/11/25 22:00 04/13/25 21:58 40 MG Famotidine 20 mg Q12HR IV 04/11/25 22:00 04/13/25 21:58 20 MG Aspirin 81 mg DAILY PO 04/12/25 10:00 04/13/25 11:10 81 MG Azithromycin 250 ml @ 125 mls/hr DAILY IV 04/12/25 10:00 04/13/25 10:58 125 MLS/HR Ceftriaxone Sodium 50 ml @ 100 mls/hr DAILY@09 IV 04/12/25 09:00 04/13/25 09:24 100 MLS/HR Albuterol 2.5 mg Q4HPRN PRN NEB 04/11/25 14:45 Ipratropium [place] 0.5 mg Q4HPRN PRN NEB 04/11/25 14:45 Diagnostic Test (Pha) 1 strip Q6HR 04/11/25 18:00 04/14/25 05:27 1 STRIP Insulin Human Regular Q6HR SC 04/11/25 18:00 04/14/25 05:27 9 UNITS Dextrose 50 ml UD PRN IV 04/11/25 14:45 Sodium Chloride 10 ml Q8HR IV 04/11/25 22:00 04/14/25 05:27 10 ML Acetaminophen/ Hydrocodone Bitart 1 tab Q4HP PRN PO 04/11/25 14:45 Ondansetron HCl 4 mg Q4HP PRN IV 04/11/25 14:45 Docusate Sodium 100 mg BIDPRN PRN PO 04/11/25 14:45 Acetaminophen 650 mg Q6HP PRN PO 04/11/25 14:45 Atorvastatin Calcium 10 mg HS PO 04/11/25 22:00 04/13/25 21:58 10 MG Nitroglycerin 0.4 mg Q5MINP PRN SL 04/11/25 15:45 Morphine Sulfate 2 mg Q30M PRN IV 04/11/25 15:45 Laboratory Results Laboratory Tests 04/12/25 05:50 Urinalysis Test 04/11/25 11:31 Urine Color Yellow (Yellow) Urine Clarity Turbid (Clear) H Urine pH 7.0 (5.0-9.0) Urine Specific [place] 1.017 (1.001-1.035) Urine Protein Negative (Negative) Urine Ketones Negative (Negative) Urine Blood Negative /uL (Negative) Urine Nitrite Negative (Negative) Urine Bilirubin Negative (Negative) Urine Urobilinogen 4 mg/dL (Negative) H Urine Leukocyte Esterase Negative /uL (Negative) Urine RBC 1 /hpf (0 - 4) Urine Microscopic WBC 2 /HPF (0-5) Urine Squamous Epithelial Cells Few /hpf (<5) Urine Amorphous Crystals Few /hpf (None Seen) Urine Bacteria Few /hpf (None Seen) H Urine Glucose 2+ mg/dL (Normal) H Microbiology Microbiology Date/Time Source Procedure Growth Status 04/12/25 03:55 Nose MRSA Screen - Final Complete Labs and/or images reviewed: Labs reviewed by me, Image(s) reviewed by me Assessment/Plan Assessment/Plan Acute on chronic hypoxic respiratory failure Acute on chronic heart failure with preserved ejection fraction Possible community-acquired pneumonia Gram-positive versus Gram-negative: Rocephin azithromycin Hypoxia Acute COPD exacerbation: Albuterol Atrovent Solu-Medrol Diabetes Hypertension Hypercholesterolemia Use of home oxygen 3 L/min Time spent 50 minutes Advanced care planning time 20 minutes Patient is full code Examined with the help of mounter smoking pipe Patient lives with her daughter Nicole [phone] who is at the bedside Plan discussed with: Patient My Orders Orders - ODALIS ZAMORA MD Procedure Category Date Status Time *Consult CONS 04/13/25 Transmitted 09:35 Date of Service: Apr 14, 2025 Billing Provider: ODALIS ZAMORA MD Common Visit Codes: [id number] INP/OBS CARE(HIGH) ODALIS ZAMORA MD Apr 14, 2025 09:26
--- NOTE | 2025-04-14 18:39 | DVH ---
CHEST RADIOGRAPH Indication: Pneumonia Technique: Single frontal view of the chest was obtained Comparison: XY CHEST PORTABLE on DOS: 04/11/25, XY CHEST PORTABLE on DOS: 04/04/25, XY CHEST PORTABLE on DOS: 12/10/24 FINDINGS: Lines and Tubes: None Lungs: Improving pulmonary vascular congestion bilaterally and decreasing pleural effusions. Pleura: No effusion. No pneumothorax. Cardiomediastinal contours: Cardiac size is stable Bones: No acute osseous abnormality. IMPRESSION: 1. Improving pulmonary vascular congestion bilaterally. 2. IMPROVING pleural effusions.
--- NOTE | 2025-04-14 20:08 | DVHPN2 ---
Subjective DOS: 04/14/2025 Patient seen and examined at bedside. Remains on supplemental oxygen Overnight events reviewed. Reviewed: Care Plan, H&P, Labs, Medications, Previous Orders, Radiology Changes from previous H/P or p: No Changes Eyes: No Pain, No Vision change, No Conjunctivae inflammation, No Eyelid inflammation, No Other, No Redness ENT: No Ear pain, No Ear discharge, No Nose pain, No Nose discharge, No Nose congestion, No Mouth pain, No Mouth swelling, No Throat pain, No Throat swelling, No Other Cardiovascular: No Chest Pain, No Palpitations, No Orthopnea, No Paroxysmal Noc. Dyspnea, No Edema, No Lt Headedness, No Other Respiratory: Cough; No Dry; Shortness of breath; No SOB with excertion, No Wheezing, No Hemoptysis, No Pleuritic Pain, No Sputum; Other (SOB at rest,) Gastrointestinal: No Nausea, No Vomiting, No Abdominal Pain, No Diarrhea, No Constipation, No Melena, No Hematochezia, No Other Genitourinary: No Dysuria, No Frequency, No Incontinence, No Hematuria, No Retention, No Other Musculoskeletal: No other, No neck pain, No shoulder pain, No arm pain, No back pain, No hand pain, No leg pain, No foot pain Skin: No Rash, No Lesions, No Jaundice, No Bruising, No Other Objective Vitals Vital Signs Date Time Temp Pulse Resp B/P (MAP) Pulse Ox O2 Delivery O2 Flow Rate FiO2 04/14/25 16:41 98.1 69 15 116/29 (58) 98 98.1 04/14/25 15:09 3.0 04/14/25 08:25 Nasal Cannula* 32 Intake/Output Intake and Output 04/14/25 07:00 Intake Total 2500 ml Balance 2500 ml Intake Oral 2200 ml IV Total 300 ml # Voids 9 # Bowel Movements 1 Exam Gen.: Patient lying in bed in no apparent distress. On supplemental oxygen. Head: Normocephalic, atraumatic. Eyes: EOMI/PERRLA. Ears: Normal hearing. Normal anatomy. Neck/trachea: Trachea midline, supple. Nose: Normal external anatomy. Mouth: Moist mucous membranes. Chest: Decreased air entry bilaterally. No wheezing or rhonchi. Cardiovascular: Positive S1, positive S2. Regular rate and rhythm. Abdomen: Positive bowel sounds in all 4 quadrants. Soft, non-tender, non- distended. : Deferred. Rectal: Deferred. Skin: Warm, dry. Intact. Extremities: 2+ radial pulses bilaterally. No lower extremity edema. Neuro: Awake, alert, oriented x3. No gross motor or sensory deficits. Cranial nerves II through XII intact. Gait not assessed. Medications Current Medications Medications Dose Ordered Sig/Barney Route Start Time Stop Time Status Last Admin Dose Admin Methylprednisolone Sodium Succinate 40 mg BID IV 04/11/25 22:00 04/14/25 10:27 40 MG Famotidine 20 mg Q12HR IV 04/11/25 22:00 04/14/25 10:27 20 MG Aspirin 81 mg DAILY PO 04/12/25 10:00 04/14/25 10:27 81 MG Azithromycin 250 ml @ 125 mls/hr DAILY IV 04/12/25 10:00 04/14/25 10:26 125 MLS/HR Ceftriaxone Sodium 50 ml @ 100 mls/hr DAILY@09 IV 04/12/25 09:00 04/14/25 09:00 100 MLS/HR Albuterol 2.5 mg Q4HPRN PRN NEB 04/11/25 14:45 Ipratropium [place] 0.5 mg Q4HPRN PRN NEB 04/11/25 14:45 Diagnostic Test (Pha) 1 strip Q6HR 04/11/25 18:00 04/14/25 12:00 1 STRIP Insulin Human Regular Q6HR SC 04/11/25 18:00 04/14/25 12:00 2 UNITS Dextrose 50 ml UD PRN IV 04/11/25 14:45 Sodium Chloride 10 ml Q8HR IV 04/11/25 22:00 04/14/25 14:00 10 ML Acetaminophen/ Hydrocodone Bitart 1 tab Q4HP PRN PO 04/11/25 14:45 Ondansetron HCl 4 mg Q4HP PRN IV 04/11/25 14:45 Docusate Sodium 100 mg BIDPRN PRN PO 04/11/25 14:45 Acetaminophen 650 mg Q6HP PRN PO 04/11/25 14:45 Atorvastatin Calcium 10 mg HS PO 04/11/25 22:00 04/13/25 21:58 10 MG Nitroglycerin 0.4 mg Q5MINP PRN SL 04/11/25 15:45 Morphine Sulfate 2 mg Q30M PRN IV 04/11/25 15:45 Laboratory Results Laboratory Tests 04/12/25 05:50 Urinalysis Test 04/11/25 11:31 Urine Color Yellow (Yellow) Urine Clarity Turbid (Clear) H Urine pH 7.0 (5.0-9.0) Urine Specific [place] 1.017 (1.001-1.035) Urine Protein Negative (Negative) Urine Ketones Negative (Negative) Urine Blood Negative /uL (Negative) Urine Nitrite Negative (Negative) Urine Bilirubin Negative (Negative) Urine Urobilinogen 4 mg/dL (Negative) H Urine Leukocyte Esterase Negative /uL (Negative) Urine RBC 1 /hpf (0 - 4) Urine Microscopic WBC 2 /HPF (0-5) Urine Squamous Epithelial Cells Few /hpf (<5) Urine Amorphous Crystals Few /hpf (None Seen) Urine Bacteria Few /hpf (None Seen) H Urine Glucose 2+ mg/dL (Normal) H Microbiology Microbiology Date/Time Source Procedure Growth Status 04/12/25 03:55 Nose MRSA Screen - Final Complete Assessment/Plan Assessment/Plan Impression: Acute hypoxic respiratory failure Dependence on supplemental oxygen Pneumonia, likely gram negative Acute COPD exacerbation Diabetes mellitus with hyperglycemia Events: Remains on supplemental oxygen On 4 LPM NC Taper O2 as tolerated Check STAT chest x-ray. Patient had possible aspiration of foreign body. Continue bronchodilators Continue antibiotics Labs and imaging reviewed. Rest of plan as noted below. Plan: Supplemental oxygen Titrate to keep O2 sats above 92%. Continue bronchodilators. IV steroids Continue antibiotics Antitussive PRN cough Incentive spirometry Accu-Cheks, ISS. Monitor renal function. Monitor electrolytes. Supplement as necessary. Monitor ins and outs. GI/DVT prophylaxis. Prognosis: Guarded given patient's multiple co-morbidities. Rest of plan per hospitalist and other consultants. Thank you, Dr. Montero, for allowing me to participate in this patient's care. Further recommendations will depend on the patient's clinical course. Please do not hesitate to contact me if you have any questions or concerns. This medical document was created using an electronic medical record system with [employer] system. Although these documentations are being carefully reviewed, there may still be some phonetic and typographical changes. The errors are purely typographical, due to imperfection on the software program, and do not reflect any compromise in the patient's medical care. Plan discussed with: Patient, Other (RN Lynne) My Orders Orders - EMILY SEYMOUR MD Procedure Category Date Status Time Chest Portable XY 04/14/25 Resulted 17:52 Visit Coding Pulmonary Billing Provider: EMILY SEYMOUR MD Date of Service if different f: Apr 14, 2025 Common Visit Codes: [id number] INP/OBS CARE(HIGH) EMILY SEYMOUR MD Apr 14, 2025 20:08
[2025-04-15] VITALS (9 sets, daily range): BP systolic 117–142; BP diastolic 40–68; PULSE 64–79; RESP 18–26; TEMP 97.9–98.4; O2SAT 93–98
--- NOTE | 2025-04-15 08:32 | DVHPN2 ---
Reviewed: Care Plan, H&P, Labs, Medications, Previous Orders, Radiology Changes from previous H/P or p: No Changes Eyes: No Pain, No Vision change, No Conjunctivae inflammation, No Eyelid inflammation, No Other, No Redness ENT: No Ear pain, No Ear discharge, No Nose pain, No Nose discharge, No Nose congestion, No Mouth pain, No Mouth swelling, No Throat pain, No Throat swelling, No Other Cardiovascular: No Chest Pain, No Palpitations, No Orthopnea, No Paroxysmal Noc. Dyspnea, No Edema, No Lt Headedness, No Other Respiratory: Cough; No Dry; Shortness of breath; No SOB with excertion, No Wheezing, No Hemoptysis, No Pleuritic Pain, No Sputum; Other (SOB at rest,) Gastrointestinal: No Nausea, No Vomiting, No Abdominal Pain, No Diarrhea, No Constipation, No Melena, No Hematochezia, No Other Genitourinary: No Dysuria, No Frequency, No Incontinence, No Hematuria, No Retention, No Other Musculoskeletal: No other, No neck pain, No shoulder pain, No arm pain, No back pain, No hand pain, No leg pain, No foot pain Skin: No Rash, No Lesions, No Jaundice, No Bruising, No Other Objective Vitals Vital Signs Date Time Temp Pulse Resp B/P (MAP) Pulse Ox O2 Delivery O2 Flow Rate FiO2 04/15/25 07:31 93 Nasal Cannula* 3 32 04/15/25 05:00 98.0 77 20 117/40 (65) 98.0 Intake/Output Intake and Output 04/15/25 07:00 Intake Total 920 ml Balance 920 ml Intake Oral 620 ml IV Total 300 ml # Voids 5 # Bowel Movements 2 Medications Current Medications Medications Dose Ordered Sig/Barney Route Start Time Stop Time Status Last Admin Dose Admin Methylprednisolone Sodium Succinate 40 mg BID IV 04/11/25 22:00 04/14/25 21:34 40 MG Famotidine 20 mg Q12HR IV 04/11/25 22:00 04/14/25 21:34 20 MG Aspirin 81 mg DAILY PO 04/12/25 10:00 04/14/25 10:27 81 MG Azithromycin 250 ml @ 125 mls/hr DAILY IV 04/12/25 10:00 04/14/25 10:26 125 MLS/HR Ceftriaxone Sodium 50 ml @ 100 mls/hr DAILY@09 IV 04/12/25 09:00 04/14/25 09:00 100 MLS/HR Albuterol 2.5 mg Q4HPRN PRN NEB 04/11/25 14:45 Ipratropium [place] 0.5 mg Q4HPRN PRN NEB 04/11/25 14:45 Diagnostic Test (Pha) 1 strip Q6HR 04/11/25 18:00 04/15/25 05:04 1 STRIP Insulin Human Regular Q6HR SC 04/11/25 18:00 04/15/25 05:04 3 UNITS Dextrose 50 ml UD PRN IV 04/11/25 14:45 Sodium Chloride 10 ml Q8HR IV 04/11/25 22:00 04/15/25 05:00 10 ML Acetaminophen/ Hydrocodone Bitart 1 tab Q4HP PRN PO 04/11/25 14:45 Ondansetron HCl 4 mg Q4HP PRN IV 04/11/25 14:45 Docusate Sodium 100 mg BIDPRN PRN PO 04/11/25 14:45 Acetaminophen 650 mg Q6HP PRN PO 04/11/25 14:45 Atorvastatin Calcium 10 mg HS PO 04/11/25 22:00 04/14/25 21:34 10 MG Nitroglycerin 0.4 mg Q5MINP PRN SL 04/11/25 15:45 Morphine Sulfate 2 mg Q30M PRN IV 04/11/25 15:45 Laboratory Results Laboratory Tests 04/12/25 05:50 Urinalysis Test 04/11/25 11:31 Urine Color Yellow (Yellow) Urine Clarity Turbid (Clear) H Urine pH 7.0 (5.0-9.0) Urine Specific [place] 1.017 (1.001-1.035) Urine Protein Negative (Negative) Urine Ketones Negative (Negative) Urine Blood Negative /uL (Negative) Urine Nitrite Negative (Negative) Urine Bilirubin Negative (Negative) Urine Urobilinogen 4 mg/dL (Negative) H Urine Leukocyte Esterase Negative /uL (Negative) Urine RBC 1 /hpf (0 - 4) Urine Microscopic WBC 2 /HPF (0-5) Urine Squamous Epithelial Cells Few /hpf (<5) Urine Amorphous Crystals Few /hpf (None Seen) Urine Bacteria Few /hpf (None Seen) H Urine Glucose 2+ mg/dL (Normal) H Microbiology Microbiology Date/Time Source Procedure Growth Status 04/12/25 03:55 Nose MRSA Screen - Final Complete Labs and/or images reviewed: Labs reviewed by me, Image(s) reviewed by me Assessment/Plan Assessment/Plan Acute on chronic hypoxic respiratory failure Acute on chronic heart failure with preserved ejection fraction Possible community-acquired pneumonia Gram-positive versus Gram-negative: Rocephin azithromycin Hypoxia Acute COPD exacerbation: Albuterol Atrovent Solu-Medrol Diabetes Hypertension Hypercholesterolemia Use of home oxygen 3 L/min Time spent 50 minutes Advanced care planning time 20 minutes Patient is full code Examined with the help of foot specialist Patient lives with her daughter Nicole [phone] who is at the bedside Plan discussed with: Patient Date of Service: Apr 15, 2025 Billing Provider: ODALIS ZAMORA MD Common Visit Codes: [id number] INP/OBS CARE(HIGH) ODALIS ZAMORA MD Apr 15, 2025 08:32
--- NOTE | 2025-04-15 23:00 | DVHPN2 ---
Subjective DOS: 04/15/2025 Patient seen and examined at bedside. Remains on supplemental oxygen Overnight events reviewed. Reviewed: Care Plan, H&P, Labs, Medications, Previous Orders, Radiology Changes from previous H/P or p: No Changes Eyes: No Pain, No Vision change, No Conjunctivae inflammation, No Eyelid inflammation, No Other, No Redness ENT: No Ear pain, No Ear discharge, No Nose pain, No Nose discharge, No Nose congestion, No Mouth pain, No Mouth swelling, No Throat pain, No Throat swelling, No Other Cardiovascular: No Chest Pain, No Palpitations, No Orthopnea, No Paroxysmal Noc. Dyspnea, No Edema, No Lt Headedness, No Other Respiratory: Cough; No Dry; Shortness of breath; No SOB with excertion, No Wheezing, No Hemoptysis, No Pleuritic Pain, No Sputum; Other (SOB at rest,) Gastrointestinal: No Nausea, No Vomiting, No Abdominal Pain, No Diarrhea, No Constipation, No Melena, No Hematochezia, No Other Genitourinary: No Dysuria, No Frequency, No Incontinence, No Hematuria, No Retention, No Other Musculoskeletal: No other, No neck pain, No shoulder pain, No arm pain, No back pain, No hand pain, No leg pain, No foot pain Skin: No Rash, No Lesions, No Jaundice, No Bruising, No Other Objective Vitals Vital Signs Date Time Temp Pulse Resp B/P (MAP) Pulse Ox O2 Delivery O2 Flow Rate FiO2 04/15/25 17:00 97.9 78 21 142/64 (90) 95 97.9 04/15/25 10:00 Nasal Cannula* 2 28 Intake/Output Intake and Output 04/15/25 07:00 Intake Total 920 ml Balance 920 ml Intake Oral 620 ml IV Total 300 ml # Voids 5 # Bowel Movements 2 Exam Gen.: Patient lying in bed in no apparent distress. On supplemental oxygen. Head: Normocephalic, atraumatic. Eyes: EOMI/PERRLA. Ears: Normal hearing. Normal anatomy. Neck/trachea: Trachea midline, supple. Nose: Normal external anatomy. Mouth: Moist mucous membranes. Chest: Decreased air entry bilaterally. No wheezing or rhonchi. Cardiovascular: Positive S1, positive S2. Regular rate and rhythm. Abdomen: Positive bowel sounds in all 4 quadrants. Soft, non-tender, non- distended. : Deferred. Rectal: Deferred. Skin: Warm, dry. Intact. Extremities: 2+ radial pulses bilaterally. No lower extremity edema. Neuro: Awake, alert, oriented x3. No gross motor or sensory deficits. Cranial nerves II through XII intact. Gait not assessed. Medications Current Medications Medications Dose Ordered Sig/Barney Route Start Time Stop Time Status Last Admin Dose Admin Methylprednisolone Sodium Succinate 40 mg BID IV 04/11/25 22:00 04/15/25 12: 40 MG Famotidine 20 mg Q12HR IV 04/11/25 22:00 04/15/25 12:25 20 MG Aspirin 81 mg DAILY PO 04/12/25 10:00 04/15/25 12:26 81 MG Azithromycin 250 ml @ 125 mls/hr DAILY IV 04/12/25 10:00 04/15/25 12: 125 MLS/HR Ceftriaxone Sodium 50 ml @ 100 mls/hr DAILY@09 IV 04/12/25 09:00 04/15/25 08:56 100 MLS/HR Albuterol 2.5 mg Q4HPRN PRN NEB 04/11/25 14:45 Ipratropium [place] 0.5 mg Q4HPRN PRN NEB 04/11/25 14:45 Diagnostic Test (Pha) 1 strip Q6HR 04/11/25 18:00 04/15/25 17:23 1 STRIP Insulin Human Regular Q6HR SC 04/11/25 18:00 04/15/25 17:23 12 UNITS Dextrose 50 ml UD PRN IV 04/11/25 14:45 Sodium Chloride 10 ml Q8HR IV 04/11/25 22:00 04/15/25 14:00 10 ML Acetaminophen/ Hydrocodone Bitart 1 tab Q4HP PRN PO 04/11/25 14:45 Ondansetron HCl 4 mg Q4HP PRN IV 04/11/25 14:45 Docusate Sodium 100 mg BIDPRN PRN PO 04/11/25 14:45 Acetaminophen 650 mg Q6HP PRN PO 04/11/25 14:45 Atorvastatin Calcium 10 mg HS PO 04/11/25 22:00 04/14/25 21:34 10 MG Nitroglycerin 0.4 mg Q5MINP PRN SL 04/11/25 15:45 Morphine Sulfate 2 mg Q30M PRN IV 04/11/25 15:45 Laboratory Results Laboratory Tests 04/12/25 05:50 Urinalysis Test 04/11/25 11:31 Urine Color Yellow (Yellow) Urine Clarity Turbid (Clear) H Urine pH 7.0 (5.0-9.0) Urine Specific [place] 1.017 (1.001-1.035) Urine Protein Negative (Negative) Urine Ketones Negative (Negative) Urine Blood Negative /uL (Negative) Urine Nitrite Negative (Negative) Urine Bilirubin Negative (Negative) Urine Urobilinogen 4 mg/dL (Negative) H Urine Leukocyte Esterase Negative /uL (Negative) Urine RBC 1 /hpf (0 - 4) Urine Microscopic WBC 2 /HPF (0-5) Urine Squamous Epithelial Cells Few /hpf (<5) Urine Amorphous Crystals Few /hpf (None Seen) Urine Bacteria Few /hpf (None Seen) H Urine Glucose 2+ mg/dL (Normal) H Microbiology Microbiology Date/Time Source Procedure Growth Status 04/12/25 03:55 Nose MRSA Screen - Final Complete Assessment/Plan Assessment/Plan Impression: Acute hypoxic respiratory failure Dependence on supplemental oxygen Pneumonia, likely gram negative Acute COPD exacerbation Diabetes mellitus with hyperglycemia Events: Remains on supplemental oxygen On 3 LPM NC Taper O2 as tolerated Patient has no further chest pain. CXR on 04/14/25 demonstrated improving pulmonary vascular congestion bilaterally. Improving pleural effusions. Continue bronchodilators Continue antibiotics Incentive spirometry Labs and imaging reviewed. Rest of plan as noted below. Plan: Supplemental oxygen Titrate to keep O2 sats above 92%. Continue bronchodilators. IV steroids Continue antibiotics Antitussive PRN cough Incentive spirometry Accu-Cheks, ISS. Monitor renal function. Monitor electrolytes. Supplement as necessary. Monitor ins and outs. GI/DVT prophylaxis. Prognosis: Guarded given patient's multiple co-morbidities. Rest of plan per hospitalist and other consultants. Thank you, Dr. Montero, for allowing me to participate in this patient's care. Further recommendations will depend on the patient's clinical course. Please do not hesitate to contact me if you have any questions or concerns. This medical document was created using an electronic medical record system with [employer] system. Although these documentations are being carefully reviewed, there may still be some phonetic and typographical changes. The errors are purely typographical, due to imperfection on the software program, and do not reflect any compromise in the patient's medical care. Plan discussed with: Patient, Other (MILTON Harmon) Visit Coding Pulmonary Billing Provider: EMILY SEYMOUR MD Date of Service if different f: Apr 15, 2025 Common Visit Codes: [id number] INP/OBS CARE(HIGH) EMILY SEYMOUR MD Apr 15, 2025 23:00
[2025-04-16] VITALS (7 sets, daily range): BP systolic 127–144; BP diastolic 62–72; PULSE 65–76; RESP 18–22; TEMP 97–97.7; O2SAT 96–98
--- NOTE | 2025-04-16 08:34 | DVHPN2 ---
Reviewed: Care Plan, H&P, Labs, Medications, Previous Orders, Radiology Changes from previous H/P or p: No Changes Eyes: No Pain, No Vision change, No Conjunctivae inflammation, No Eyelid inflammation, No Other, No Redness ENT: No Ear pain, No Ear discharge, No Nose pain, No Nose discharge, No Nose congestion, No Mouth pain, No Mouth swelling, No Throat pain, No Throat swelling, No Other Cardiovascular: No Chest Pain, No Palpitations, No Orthopnea, No Paroxysmal Noc. Dyspnea, No Edema, No Lt Headedness, No Other Respiratory: Cough; No Dry; Shortness of breath; No SOB with excertion, No Wheezing, No Hemoptysis, No Pleuritic Pain, No Sputum; Other (SOB at rest,) Gastrointestinal: No Nausea, No Vomiting, No Abdominal Pain, No Diarrhea, No Constipation, No Melena, No Hematochezia, No Other Genitourinary: No Dysuria, No Frequency, No Incontinence, No Hematuria, No Retention, No Other Musculoskeletal: No other, No neck pain, No shoulder pain, No arm pain, No back pain, No hand pain, No leg pain, No foot pain Skin: No Rash, No Lesions, No Jaundice, No Bruising, No Other Objective Vitals Vital Signs Date Time Temp Pulse Resp B/P (MAP) Pulse Ox O2 Delivery O2 Flow Rate FiO2 04/16/25 05:00 97.0 70 18 130/64 (86) 97 97.0 04/15/25 23:30 Nasal Cannula 3.0 04/15/25 20:00 28 Intake/Output Intake and Output 04/16/25 07:00 Intake Total 1720 ml Balance 1720 ml Intake Oral 1420 ml IV Total 300 ml # Voids 9 # Bowel Movements 1 Medications Current Medications Medications Dose Ordered Sig/Barney Route Start Time Stop Time Status Last Admin Dose Admin Methylprednisolone Sodium Succinate 40 mg BID IV 04/11/25 22:00 04/15/25 23:33 40 MG Famotidine 20 mg Q12HR IV 04/11/25 22:00 04/15/25 22:00 20 MG Aspirin 81 mg DAILY PO 04/12/25 10:00 04/15/25 12:26 81 MG Azithromycin 250 ml @ 125 mls/hr DAILY IV 04/12/25 10:00 04/15/25 12:25 125 MLS/HR Ceftriaxone Sodium 50 ml @ 100 mls/hr DAILY@09 IV 04/12/25 09:00 04/15/25 08:56 100 MLS/HR Albuterol 2.5 mg Q4HPRN PRN NEB 04/11/25 14:45 Ipratropium [place] 0.5 mg Q4HPRN PRN NEB 04/11/25 14:45 Diagnostic Test (Pha) 1 strip Q6HR 04/11/25 18:00 04/16/25 05:20 1 STRIP Insulin Human Regular Q6HR SC 04/11/25 18:00 04/16/25 05:19 6 UNITS Dextrose 50 ml UD PRN IV 04/11/25 14:45 Sodium Chloride 10 ml Q8HR IV 04/11/25 22:00 04/16/25 05:20 10 ML Acetaminophen/ Hydrocodone Bitart 1 tab Q4HP PRN PO 04/11/25 14:45 Ondansetron HCl 4 mg Q4HP PRN IV 04/11/25 14:45 Docusate Sodium 100 mg BIDPRN PRN PO 04/11/25 14:45 Acetaminophen 650 mg Q6HP PRN PO 04/11/25 14:45 Atorvastatin Calcium 10 mg HS PO 04/11/25 22:00 04/15/25 23:21 10 MG Nitroglycerin 0.4 mg Q5MINP PRN SL 04/11/25 15:45 Morphine Sulfate 2 mg Q30M PRN IV 04/11/25 15:45 Laboratory Results Laboratory Tests 04/12/25 05:50 Urinalysis Test 04/11/25 11:31 Urine Color Yellow (Yellow) Urine Clarity Turbid (Clear) H Urine pH 7.0 (5.0-9.0) Urine Specific [place] 1.017 (1.001-1.035) Urine Protein Negative (Negative) Urine Ketones Negative (Negative) Urine Blood Negative /uL (Negative) Urine Nitrite Negative (Negative) Urine Bilirubin Negative (Negative) Urine Urobilinogen 4 mg/dL (Negative) H Urine Leukocyte Esterase Negative /uL (Negative) Urine RBC 1 /hpf (0 - 4) Urine Microscopic WBC 2 /HPF (0-5) Urine Squamous Epithelial Cells Few /hpf (<5) Urine Amorphous Crystals Few /hpf (None Seen) Urine Bacteria Few /hpf (None Seen) H Urine Glucose 2+ mg/dL (Normal) H Microbiology Microbiology Date/Time Source Procedure Growth Status 04/12/25 03:55 Nose MRSA Screen - Final Complete Labs and/or images reviewed: Labs reviewed by me, Image(s) reviewed by me Assessment/Plan Assessment/Plan Acute on chronic hypoxic respiratory failure Acute on chronic heart failure with preserved ejection fraction Possible community-acquired pneumonia Gram-positive versus Gram-negative: Rocephin azithromycin Hypoxia Acute COPD exacerbation: Albuterol Atrovent Solu-Medrol Diabetes Hypertension Hypercholesterolemia Use of home oxygen 3 L/min Time spent 50 minutes Advanced care planning time 20 minutes Patient is full code Examined with the help of registration rep Patient lives with her daughter Nicole [phone] who is at the bedside Plan discussed with: Patient My Orders Orders - ODALIS ZAMORA MD Procedure Category Date Status Time Communication Order ORDERS 04/15/25 Transmitted 08:33 Date of Service: Apr 16, 2025 Billing Provider: ODALIS ZAMORA MD Common Visit Codes: [id number] INP/OBS CARE(HIGH) ODALIS ZAMORA MD Apr 16, 2025 08:34
[2025-04-16] MEDS ORDERED: AZIT500T66 PO (08:42)
[2025-04-16] MEDS ORDERED: PRED20TA2 PO (08:42)
--- NOTE | 2025-04-16 08:46 | DVHDS2 ---
Discharge Summary Date of Admission Apr 11, 2025 at 15:34 Date of Discharge: Apr 16, 2025 Admitting Diagnosis Shortness of breath Wounds: None Labs/Diagnostic Data: Laboratory Results Test 04/16/25 05:00 04/13/25 11:00 04/12/25 05:50 04/11/25 12:35 POC Glucose 216 mg/dl (70-106) Influenza Type A Antigen Negative (Negative) Influenza Type B Antigen Negative (Negative) SARS-CoV-2 Antigen (Rapid) Negative (NEGATIVE) White Blood Count 8.0 10^3/uL (4.4-10.8) Red Blood Count 6.50 10^6/uL (4.0-5.20) Hemoglobin 13.1 g/dL (12.2-16.2) Hematocrit 44.9 % (36.0-46.0) Mean Corpuscular Volume 69.1 fL (80.0-100.0) Mean Corpuscular Hemoglobin 20.2 pg (28.0-32.0) Mean Corpuscular Hemoglobin Concent 29.2 g/dL (32.0-36.0) Red Cell Distribution Width 21.5 % (11.8-14.3) Platelet Count 249 10^3/uL (140-450) Mean Platelet Volume 8.4 fL (6.9-10.8) Neutrophils (%) (Auto) 84.8 % (37.0-80.0) Lymphocytes (%) (Auto) 13.5 % (10.0-50.0) Monocytes (%) (Auto) 1.6 % (0.0-12.0) Eosinophils (%) (Auto) 0.0 % (0.0-7.0) Basophils (%) (Auto) 0.1 % (0.0-2.0) Neutrophils # (Auto) 6.8 10 ^3/uL (1.6-8.6) Lymphocytes # (Auto) 1.1 10 ^3/uL (0.4-5.4) Monocytes # (Auto) 0.1 10 ^3/uL (0-1.3) Eosinophils # (Auto) 0 10 ^3/uL (0-0.8) Basophils # (Auto) 0 10 ^3/uL (0-0.2) Nucleated Red Blood Cells 0.1 % Platelet Estimate Adequate Hypochromasia (manual) Marked Anisocytosis (manual) Slight Microcytosis Marked Stomatocytes Few Sodium Level 141 mmol/L (136-145) Potassium Level 4.0 mmol/L (3.5-5.1) Chloride Level 88 mmol/L (98-107) Carbon Dioxide Level > 40 mmol/L (20-31) Anion Gap 12.48868 (5-15) Blood Urea Nitrogen 18 mg/dL (9-23) Creatinine 0.44 mg/dL (0.550-1.02) Glomerular Filtration Rate Calc 96 mL/min (>90) BUN/Creatinine Ratio 40.9 (10.0-20.0) Serum Glucose 148 mg/dL (74-106) Calcium Level 9.4 mg/dL (8.7-10.4) Total Bilirubin 0.8 mg/dL (0.2-1.0) Aspartate Amino Transferase (AST) 22 U/L (13-40) Alanine Aminotransferase (ALT) 22 U/L (7-40) Alkaline Phosphatase 81 U/L (46-116) Total Protein 6.6 g/dL (5.7-8.2) Albumin 4.3 g/dL (3.2-4.8) Large Platelets Few Giant Platelets Few Poikilocytosis (manual) Slight Troponin I High Sensitivity 14 ng/L (</=34) B-Type Natriuretic Peptide 98.11 pg/mL (0-100) Test 04/11/25 11:31 Urine Color Yellow (Yellow) Urine Clarity Turbid (Clear) Urine pH 7.0 (5.0-9.0) Urine Specific [place] 1.017 (1.001-1.035) Urine Protein Negative (Negative) Urine Ketones Negative (Negative) Urine Blood Negative /uL (Negative) Urine Nitrite Negative (Negative) Urine Bilirubin Negative (Negative) Urine Urobilinogen 4 mg/dL (Negative) Urine Leukocyte Esterase Negative /uL (Negative) Urine RBC 1 /hpf (0 - 4) Urine Microscopic WBC 2 /HPF (0-5) Urine Squamous Epithelial Cells Few /hpf (<5) Urine Amorphous Crystals Few /hpf (None Seen) Urine Bacteria Few /hpf (None Seen) Urine Glucose 2+ mg/dL (Normal) Other Laboratory Tests 04/12/25 05:50 Brief Hx & Hospital Course: Patient with COPD chronic respiratory failure on home oxygen 3 L/min diabetes hypertension hypercholesterolemia came in complaining of shortness of breaths. The patient also has a history of congestive heart failure with a preserved ejection fraction found to have community-acquired pneumonia treated with Rocephin azithromycin albuterol Atrovent Solu-Medrol patient feels better on 3 L of oxygen at the time of discharge vital signs stable afebrile daughter at bedside agreeable with the discharge plan explained to the patient's daughter about the discharge plan with the help of bankruptcy legal assistant MILTON Harmon Prescription for azithromycin prednisone tablets transmitted to pharmacy Patient has oxygen at home. Consults/Reason for consult None Operations or Procedures None Condition at Discharge: Fair Final Diagnosis/Problems List Acute on chronic hypoxic respiratory failure Acute on chronic heart failure with preserved ejection fraction Possible community-acquired pneumonia Gram-positive versus Gram-negative: Rocephin azithromycin Hypoxia Acute COPD exacerbation: Albuterol Atrovent Solu-Medrol Diabetes Hypertension Hypercholesterolemia Use of home oxygen 3 L/min Discharge Disposition: Home Discharge Instruct/Medications Diet: Cardiac 2g Na,low cholest Activity: Light activity Follow Up/Referral: Resume all previous home medications Follow up with the primary Dr in one week Medications: Azithromycin Prednisone Transmitted to pharmacy Scheduled Azithromycin (Zithromax Z-Vic), 250 MG PO UD Azithromycin (Azithromycin), 1 TAB PO DAILY Furosemide (Lasix), 1 TAB PO DAILY Methylprednisolone (Medrol Dosepak), 4 MG PO UD Prednisone (Prednisone), 20 MG PO DAILY 39 (Time taken for discharge summary 39 minutes) Discharge Statement: "Patient was advised to return to the ER or call 911 if any headaches, dizziness, shortness of breath, chest pain, abdominal pain, bleeding, fevers, or worsening of medical condition. Patient was counseled about treatment plan, medications, possible side effects, patientverbalized understanding. All questions were answered to the best of my ability. This discharge took greater then 30 minutes in planning, reviewing documentation, counseling the patient, and discussing with other team members." ASSESSMENT ASSESSMENT Hospital Course Improved Assessment Acute on chronic hypoxic respiratory failure Acute on chronic heart failure with preserved ejection fraction Possible community-acquired pneumonia Gram-positive versus Gram-negative: Rocephin azithromycin Hypoxia Acute COPD exacerbation: Albuterol Atrovent Solu-Medrol Diabetes Hypertension Hypercholesterolemia Use of home oxygen 3 L/min Date of Service: Apr 16, 2025 Billing Provider: ODALIS ZAMORA MD Common Visit Codes: [id number] DISCH DAY >30min ODALIS ZAMORA MD Apr 16, 2025 08:46
--- NOTE | 2025-04-16 22:38 | DVHPN2 ---
Subjective DOS: 04/16/2025 Patient seen and examined at bedside. Remains on supplemental oxygen Overnight events reviewed. Reviewed: Care Plan, H&P, Labs, Medications, Previous Orders, Radiology Changes from previous H/P or p: No Changes Eyes: No Pain, No Vision change, No Conjunctivae inflammation, No Eyelid inflammation, No Other, No Redness ENT: No Ear pain, No Ear discharge, No Nose pain, No Nose discharge, No Nose congestion, No Mouth pain, No Mouth swelling, No Throat pain, No Throat swelling, No Other Cardiovascular: No Chest Pain, No Palpitations, No Orthopnea, No Paroxysmal Noc. Dyspnea, No Edema, No Lt Headedness, No Other Respiratory: Cough; No Dry; Shortness of breath; No SOB with excertion, No Wheezing, No Hemoptysis, No Pleuritic Pain, No Sputum; Other (SOB at rest,) Gastrointestinal: No Nausea, No Vomiting, No Abdominal Pain, No Diarrhea, No Constipation, No Melena, No Hematochezia, No Other Genitourinary: No Dysuria, No Frequency, No Incontinence, No Hematuria, No Retention, No Other Musculoskeletal: No other, No neck pain, No shoulder pain, No arm pain, No back pain, No hand pain, No leg pain, No foot pain Skin: No Rash, No Lesions, No Jaundice, No Bruising, No Other Objective Vitals Vital Signs Date Time Temp Pulse Resp B/P (MAP) Pulse Ox O2 Delivery O2 Flow Rate FiO2 04/16/25 12:57 97.5 76 22 144/62 (89) 97 97.5 04/16/25 10:00 Nasal Cannula 2.0 04/16/25 10:00 28 Intake/Output Intake and Output 04/16/25 07:00 Intake Total 1720 ml Balance 1720 ml Intake Oral 1420 ml IV Total 300 ml # Voids 9 # Bowel Movements 1 Exam Gen.: Patient lying in bed in no apparent distress. On supplemental oxygen. Head: Normocephalic, atraumatic. Eyes: EOMI/PERRLA. Ears: Normal hearing. Normal anatomy. Neck/trachea: Trachea midline, supple. Nose: Normal external anatomy. Mouth: Moist mucous membranes. Chest: Decreased air entry bilaterally. No wheezing or rhonchi. Cardiovascular: Positive S1, positive S2. Regular rate and rhythm. Abdomen: Positive bowel sounds in all 4 quadrants. Soft, non-tender, non- distended. : Deferred. Rectal: Deferred. Skin: Warm, dry. Intact. Extremities: 2+ radial pulses bilaterally. No lower extremity edema. Neuro: Awake, alert, oriented x3. No gross motor or sensory deficits. Cranial nerves II through XII intact. Gait not assessed. Laboratory Results Laboratory Tests 04/12/25 05:50 Urinalysis Test 04/11/25 11:31 Urine Color Yellow (Yellow) Urine Clarity Turbid (Clear) H Urine pH 7.0 (5.0-9.0) Urine Specific [place] 1.017 (1.001-1.035) Urine Protein Negative (Negative) Urine Ketones Negative (Negative) Urine Blood Negative /uL (Negative) Urine Nitrite Negative (Negative) Urine Bilirubin Negative (Negative) Urine Urobilinogen 4 mg/dL (Negative) H Urine Leukocyte Esterase Negative /uL (Negative) Urine RBC 1 /hpf (0 - 4) Urine Microscopic WBC 2 /HPF (0-5) Urine Squamous Epithelial Cells Few /hpf (<5) Urine Amorphous Crystals Few /hpf (None Seen) Urine Bacteria Few /hpf (None Seen) H Urine Glucose 2+ mg/dL (Normal) H Microbiology Microbiology Date/Time Source Procedure Growth Status 04/12/25 03:55 Nose MRSA Screen - Final Complete Assessment/Plan Assessment/Plan Impression: Acute hypoxic respiratory failure Dependence on supplemental oxygen Pneumonia, likely gram negative Acute COPD exacerbation Diabetes mellitus with hyperglycemia Events: Remains on supplemental oxygen On 3 LPM NC Taper O2 as tolerated Patient has no further chest pain. CXR on 04/14/25 demonstrated improving pulmonary vascular congestion bilaterally. Improving pleural effusions. Continue bronchodilators Continue antibiotics - complete course Incentive spirometry Patient is stable for discharge from the pulmonary standpoint. Disposition per hospitalist. Follow up in 7-14 days in [facility]. Labs and imaging reviewed. Rest of plan as noted below. Plan: Supplemental oxygen Titrate to keep O2 sats above 92%. Continue bronchodilators. IV steroids Complete antibiotics Antitussive PRN cough Incentive spirometry Accu-Cheks, ISS. Monitor renal function. Monitor electrolytes. Supplement as necessary. Monitor ins and outs. GI/DVT prophylaxis. Prognosis: Guarded given patient's multiple co-morbidities. Rest of plan per hospitalist and other consultants. Thank you, Dr. Montero, for allowing me to participate in this patient's care. Further recommendations will depend on the patient's clinical course. Please do not hesitate to contact me if you have any questions or concerns. This medical document was created using an electronic medical record system with [employer] system. Although these documentations are being carefully reviewed, there may still be some phonetic and typographical changes. The errors are purely typographical, due to imperfection on the software program, and do not reflect any compromise in the patient's medical care. Plan discussed with: Patient, Other (MILTON Harmon) Visit Coding Pulmonary Billing Provider: EMILY SEYMOUR MD Date of Service if different f: Apr 16, 2025 Common Visit Codes: [id number] INP/OBS CARE(HIGH) EMILY SEYMOUR MD Apr 16, 2025 22:38
== END 2025-04-16 14:00 | disposition home or self-care (01) | DRG 133 ==
LOC: ER 11:10 → OVERFLOW 15:34 → TELE-EAST 19:34 → TELE-CENTR 04-13 18:15
PROVIDERS: ADMIT Family Medicine; ATTEND Family Medicine
DX: J96.21 Acute and chronic respiratory failure with hypoxia (principal); J15.69 Pneumonia due to other Gram-negative bacteria; I50.33 Acute on chronic diastolic (congestive) heart failure; I11.0 Hypertensive heart disease with heart failure; J15.9 Unspecified bacterial pneumonia; J44.0 Chronic obstructive pulmonary disease with (acute) lower respiratory infection; E11.65 Type 2 diabetes mellitus with hyperglycemia; J44.1 Chronic obstructive pulmonary disease with (acute) exacerbation; Z20.822 Contact with and (suspected) exposure to COVID-19; E78.00 Pure hypercholesterolemia, unspecified; Z99.81 Dependence on supplemental oxygen; Z90.49 Acquired absence of other specified parts of digestive tract
CPT/HCPCS: 36415; 71045; 80048; 80053; 81001; 82962; 83880; 84484; 85025; 87081; 87426; 87804; 93005; 96365; 96368; 96375; 99291; 99292; G0378; J1815; J2405; J2543; J3490